=== PATIENT | male | born 1985 | race Two or more races ===

== ENCOUNTER 2021-11-15 09:43 | Emergency (ER) | payer SELFPAY ==
[~2021-11-15] VITALS: Ht 177.8 cm; Wt 117.9 kg
[2021-11-15 09:51] VITALS: BP 144/87
[2021-11-15] MEDS ORDERED: KETOROLAC TROMETH 60MG/2ML VIAL IM ONE (10:15)
[2021-11-15] MEDS ORDERED: BACL10TA PO (10:18)
[2021-11-15] MEDS ORDERED: ACET-1080 PO (10:18)
== END 2021-11-15 10:30 | disposition home or self-care (01) ==
LOC: ER 09:43
DX: S29.012A Strain of muscle and tendon of back wall of thorax, initial encounter (principal); F17.290 Nicotine dependence, other tobacco product, uncomplicated; Z88.6 Allergy status to analgesic agent; Z91.040 Latex allergy status; X50.1XXA Overexertion from prolonged static or awkward postures, initial encounter; Y93.89 Activity, other specified; Y92.89 Other specified places as the place of occurrence of the external cause; Y99.8 Other external cause status
CPT/HCPCS: 96372; 99283; J1885

== ENCOUNTER 2022-06-10 07:30 | Emergency (ER) | payer MEDICAID, OTHER ==
[~2022-06-10] VITALS: Ht 177.8 cm; Wt 125.3 kg
[~2022-06-10 07:30] MED LIST: ACET-1080 PO; BACL10TA PO
[2022-06-10 07:55] VITALS: BP 167/94
[2022-06-10 08:10] LABS: Basophils # (auto) 0 10 ^3/uL (0-0.2); Basophils % (auto) 0.3 % (0.0-2.0); Eosinophils # (auto) 0.1 10 ^3/uL (0-0.8); Hemoglobin 15.4 g/dL (13.5-17.5); Lymphocytes % (auto) 23.4 % (10.0-50.0); Mean Corpuscular Hemoglobin 30.6 pg (28.0-32.0); Mean Corpuscular Volume 87.6 fL (80.0-100.0); Monocytes # (auto) 0.6 10 ^3/uL (0-1.3); Neutrophils # (auto) 5.7 10 ^3/uL (1.6-8.6); Neutrophils % (auto) 68.3 % (37.0-80.0); Red Blood Cells 5.02 10^6/uL (4.5-5.90); White Blood Cell 8.4 10^3/uL (4.4-10.8)
[2022-06-10 08:23] LABS: Albumin 3.9 g/dL (3.4-5.0); Calcium 8.7 mg/dL (8.5-10.1); Potassium 4.1 mmol/L (3.5-5.1)
[2022-06-10 08:26] LABS: BUN/Creatinine Ratio 9.3; Bilirubin, Total 0.4 mg/dL (0.2-1.0); Total Protein 7.2 g/dL (6.4-8.2)
[2022-06-10] MEDS ORDERED: AZIT1POW PO (08:59)
[2022-06-10] MEDS ORDERED: METH4PAK PO (08:59)
== END 2022-06-10 09:10 | disposition home or self-care (01) ==
LOC: ER 07:30
DX: J20.9 Acute bronchitis, unspecified (principal); R94.31 Abnormal electrocardiogram [ECG] [EKG]; F12.10 Cannabis abuse, uncomplicated; Z20.822 Contact with and (suspected) exposure to COVID-19; Z88.6 Allergy status to analgesic agent
CPT/HCPCS: 36415; 71046; 80053; 84484; 85025; 87426; 93005

== ENCOUNTER 2022-12-19 07:47 | Emergency (ER) | payer MEDICAID ==
[~2022-12-19] VITALS: Ht 177.8 cm; Wt 120.0 kg
[~2022-12-19 07:47] MED LIST changes: +AZIT1POW PO; +METH4PAK PO
[2022-12-19 09:12] VITALS: BP 135/97
[2022-12-19] MEDS ORDERED: KETOROLAC TROMETH 60MG/2ML VIAL IM ONE (09:15)
[2022-12-19] MEDS ORDERED: METH750T22 PO (09:37)
[2022-12-19] MEDS ORDERED: ACET-1080 PO (09:37)
== END 2022-12-19 09:42 | disposition home or self-care (01) ==
LOC: ER 07:47
DX: S39.012A Strain of muscle, fascia and tendon of lower back, initial encounter (principal); Z79.2 Long term (current) use of antibiotics; Z79.899 Other long term (current) drug therapy; Z88.8 Allergy status to other drugs, medicaments and biological substances; Z91.040 Latex allergy status; W10.9XXA Fall (on) (from) unspecified stairs and steps, initial encounter; Y93.89 Activity, other specified; Y92.89 Other specified places as the place of occurrence of the external cause; Y99.8 Other external cause status
CPT/HCPCS: 72100; 96372; 99283; J1885

== ENCOUNTER 2023-12-07 09:29 | Inpatient (IN) | payer MEDICAID ==
[~2023-12-07] VITALS: Ht 177.8 cm; Wt 122.1 kg
[~2023-12-07 09:29] MED LIST changes: +METH-1182 PO
[2023-12-07 10:48] VITALS: PULSE 64; RESP 20; O2SAT 99
[2023-12-07 10:53] LABS: Basophils # (auto) 0.1 10 ^3/uL (0-0.2); Basophils % (auto) 0.6 % (0.0-2.0); Eosinophils # (auto) 0 10 ^3/uL (0-0.8); Hematocrit 46.6 % (41.0-53.0); Hemoglobin 15.6 g/dL (13.5-17.5); Lymphocytes # (auto) 2.4 10 ^3/uL (0.4-5.4); Lymphocytes % (auto) 17.7 % (10.0-50.0); Mean Corpuscular Hemoglobin 29.5 pg (28.0-32.0); Mean Corpuscular Hgb Conc. 33.5 g/dL (32.0-36.0); Monocytes # (auto) 0.5 10 ^3/uL (0-1.3); Monocytes % (auto) 3.3 % (0.0-12.0); Neutrophils # (auto) 10.8 10 ^3/uL (1.6-8.6); Neutrophils % (auto) 78.4 % (37.0-80.0); Red Blood Cells 5.29 10^6/uL (4.5-5.90); Red Cell Distribution Width 13.7 % (11.8-14.3); White Blood Cell 13.7 10^3/uL (4.4-10.8)
[2023-12-07] MEDS: ONDANSETRON HCL 4 MG/2 ML VIAL IV ONE ×2 (11:05→21:18)
[2023-12-07] MEDS: MORPHINE SULFATE 4 MG/ML SYR/VIAL IV ONE (11:06)
[2023-12-07] MEDS: SODIUM CHLORIDE 0.9% 1,000 ML IV ONE ×2 (11:06→20:07)
[2023-12-07 11:13] LABS: Alanine Aminotransferase 41 U/L (7-40); Albumin 4.9 g/dL (3.2-4.8); Alkaline Phosphatase 66 U/L (46-116); Anion Gap 12 (5-15); Aspartate Aminotransferase 29 U/L (13-40); Blood Urea Nitrogen 10 mg/dL (9-23); Calcium 9.8 mg/dL (8.5-10.1); Carbon Dioxide 20 mmol/L (20-30); Chloride 108 mmol/L (98-107); Glucose 124 mg/dL (74-106); Potassium 3.4 mmol/L (3.5-5.1); Sodium 140 mmol/L (136-145)
[2023-12-07 11:14] LABS: Bilirubin, Total 0.5 mg/dL (0.2-1.0); Total Protein 7.8 g/dL (5.7-8.2)
[2023-12-07 11:29] LABS: Lactic Acid w/Reflex 2.7 mmol/L (0.4-2.0)
[2023-12-07] MEDS ORDERED: PROMETHAZINE HCL 12.5 MG RECT SUPP PR ONE (11:30)
[2023-12-07 11:49] LABS: Lipase 39 U/L (12-53)
[2023-12-07] MEDS: cefTRIAXone 1GM/50ML D5W 50 ML IV ONE (13:26)
[2023-12-07] MEDS: PROMETHAZINE HCL 6.25 MG/5 ML ORAL SYRUP PO ONE (14:04)
[2023-12-07] MEDS: metroNIDAZOLE 500MG/100ML 100 ML IV ONE (14:06)
[2023-12-07 14:18] LABS: Triglycerides 126 mg/dL (< 150)
[2023-12-07 14:19] LABS: LDL Cholesterol 152 mg/dL (< 100)
[2023-12-07 14:20] LABS: Cholesterol 218 mg/dL (< 200); HDL Cholesterol 50 mg/dL (40-59)
[2023-12-07 14:21] LABS: Urine Bacteria None Seen /hpf (None Seen)
[2023-12-07 14:31] LABS: Amphetamine Screen, Urine Neg (NEGATIVE); Benzodiazephine Screen, Urine Neg (NEGATIVE)
[2023-12-07 14:32] LABS: Barbiturate Scree,Urine Neg (NEGATIVE); Cannabinoid Screen, Urine Pos (NEGATIVE); Cocaine Screen, Urine Neg (NEGATIVE); Opiate Scree,Urine Neg (NEGATIVE); Phencyclidine Screen, Urine Neg (NEGATIVE)
[2023-12-07] MEDS: metroNIDAZOLE 500MG/100ML 100 ML IV SCH (14:35)
[2023-12-07 14:39] LABS: Urine Blood Negative /uL (Negative); Urine Clarity Clear (Clear); Urine Color Colorless (Yellow); Urine Protein, UAD Negative (Negative); Urine Specific Gravity 1.015 (1.001-1.035); Urine Urobilinogen Normal (Negative); Urine WBC 1 /hpf (0 - 3); Urine pH 7.5 (5.0-9.0)
[2023-12-07] MEDS: PANTOPRAZOLE 40 MG/10 ML VIAL INJ IV ONE (14:40)
[2023-12-07] MEDS: KETOROLAC TROMETH 30 MG/ML 1ML VIAL IV ONE (14:40)
[2023-12-07] MEDS: ONDANSETRON HCL 4 MG/2 ML VIAL IV PRN (15:51)
[2023-12-07] MEDS: SODIUM CHLORIDE 0.9% 1,000 ML IV SCH (15:52)
[2023-12-07] MEDS: KETOROLAC TROMETH 30 MG/ML 1ML VIAL IV PRN (17:55)
[2023-12-07 19:22] LABS: Lactic Acid w/Reflex 2.7 mmol/L (0.4-2.0)
[2023-12-07 19:40] VITALS: PULSE 66; RESP 20; O2SAT 100
[2023-12-07] MEDS: POTASSIUM EFFERVESENT TAB 25 MEQ PO ONE (20:18)
[2023-12-07] MEDS: HYDROcodone-ACET 5/325MG TAB PO PRN (20:19)
[2023-12-07] MEDS: hydrALAZINE HCL 20 MG/ML VL IV PRN (20:54)
[2023-12-08] MEDS: SODIUM CHLORIDE 0.9% 1,000 ML IV ONE (00:24)
[2023-12-08 01:36] LABS: Lactic Acid w/Reflex 2.4 mmol/L (0.4-2.0)
[2023-12-08] MEDS: SODIUM CHLORIDE 0.9% 500 ML IV ONE (03:20)
[2023-12-08 07:27] LABS: Basophils # (auto) 0 10 ^3/uL (0-0.2); Basophils % (auto) 0.2 % (0.0-2.0); Eosinophils # (auto) 0 10 ^3/uL (0-0.8); Hematocrit 47.3 % (41.0-53.0); Lymphocytes % (auto) 14.4 % (10.0-50.0); Mean Corpuscular Hemoglobin 29.4 pg (28.0-32.0); Mean Corpuscular Hgb Conc. 33.9 g/dL (32.0-36.0); Mean Corpuscular Volume 86.7 fL (80.0-100.0); Monocytes # (auto) 1.4 10 ^3/uL (0-1.3); Monocytes % (auto) 6.5 % (0.0-12.0); Neutrophils # (auto) 16.4 10 ^3/uL (1.6-8.6); Neutrophils % (auto) 78.9 % (37.0-80.0); Nucleated Red Blood Cells % 0.2 %; Red Blood Cells 5.45 10^6/uL (4.5-5.90); Red Cell Distribution Width 13.7 % (11.8-14.3); White Blood Cell 20.8 10^3/uL (4.4-10.8)
[2023-12-08 07:36] LABS: Alanine Aminotransferase 34 U/L (7-40); Albumin 4.9 g/dL (3.2-4.8); Alkaline Phosphatase 61 U/L (46-116); Anion Gap 10 (5-15); Aspartate Aminotransferase 33 U/L (13-40); BUN/Creatinine Ratio 6.1 (10.0-20.0); Bilirubin, Total 0.6 mg/dL (0.2-1.0); Blood Urea Nitrogen 6 mg/dL (9-23); Calcium 9.3 mg/dL (8.5-10.1); Carbon Dioxide 23 mmol/L (20-30); Chloride 105 mmol/L (98-107); Glucose 109 mg/dL (74-106); Sodium 138 mmol/L (136-145)
[2023-12-08 07:37] LABS: Total Protein 7.8 g/dL (5.7-8.2)
[2023-12-08] MEDS: POTASSIUM EFFERVESENT TAB 25 MEQ PO ONE (08:30)
[2023-12-08] MEDS ORDERED: METHOCARBAMOL 500 MG TAB PO PRN (09:00)
[2023-12-08] MEDS ORDERED: BACLOFEN 10 MG TAB PO PRN (09:00)
[2023-12-08] MEDS: cefTRIAXone 1GM/50ML D5W 50 ML IV SCH (09:44)
[2023-12-08 10:10] VITALS: BP 154/99; PULSE 84; RESP 18; TEMP 98.4; O2SAT 98
[2023-12-08 10:16] LABS: INR 1.07 (0.9-1.15); Partial Thromboplastin Time 29.7 SEC (24.5-34.5); Prothrombin Time 11.2 sec (9.3-11.8)
[2023-12-08 10:20] LABS: Lactic Acid w/Reflex 2.1 mmol/L (0.4-2.0)
[2023-12-08] MEDS ORDERED: CHOL50007 PO (10:27)
[2023-12-08] MEDS ORDERED: CHLO25TA2 PO (10:27)
[2023-12-08] MEDS ORDERED: TRAM50TA2 PO (10:27)
[2023-12-08] MEDS ORDERED: LISI20TA56 PO (10:27)
[2023-12-08 10:32] VITALS: BP 154/99; PULSE 84; RESP 18; TEMP 98.4; O2SAT 98
[2023-12-08] MEDS ORDERED: LIDOCAINE 5% TOPICAL PATCH TOP PRN (11:15)
[2023-12-08] MEDS: PANTOPRAZOLE 40 MG/10 ML VIAL INJ IV SCH (11:55)
[2023-12-08] MEDS: POTASSIUM CHLORIDE 40 MEQ, LIDOCAINE 1% (LOCAL ANESTH.) 4 ML in SODIUM CHL 0.9% 250 ML IV ONE (11:57)
[2023-12-08] MEDS: ENOXAPARIN SOD 40 MG/0.4 ML SYRINGE SC SCH (12:03)
[2023-12-08 15:41] VITALS: BP 135/87; PULSE 75; RESP 18; TEMP 98.1; O2SAT 97
[2023-12-08] MEDS: LISINOPRIL 5 MG TAB PO ONE (16:52)
[2023-12-08] MEDS: ACETAMINOPHEN 325 MG TAB PO PRN (17:44)
[2023-12-08 20:00] VITALS: PULSE 64; RESP 16; O2SAT 96
[2023-12-08 20:56] VITALS: BP 147/88; PULSE 64; RESP 16; TEMP 98.4; O2SAT 96
[2023-12-08] MEDS: ATORVASTATIN 20 MG TAB PO SCH (21:09)
[2023-12-09 01:00] VITALS: BP 131/76; PULSE 66; RESP 16; TEMP 98.3; O2SAT 99
[2023-12-09 05:00] VITALS: BP 132/85; PULSE 68; RESP 16; TEMP 98.6; O2SAT 99
[2023-12-09 07:34] LABS: Basophils # (auto) 0 10 ^3/uL (0-0.2); Basophils % (auto) 0.2 % (0.0-2.0); Eosinophils # (auto) 0 10 ^3/uL (0-0.8); Eosinophils % (auto) 0.1 % (0.0-7.0); Hematocrit 42.8 % (41.0-53.0); Hemoglobin 14.8 g/dL (13.5-17.5); Lymphocytes # (auto) 3.4 10 ^3/uL (0.4-5.4); Lymphocytes % (auto) 31.3 % (10.0-50.0); Mean Corpuscular Hemoglobin 30.2 pg (28.0-32.0); Mean Corpuscular Hgb Conc. 34.6 g/dL (32.0-36.0); Mean Corpuscular Volume 87.3 fL (80.0-100.0); Monocytes # (auto) 0.7 10 ^3/uL (0-1.3); Monocytes % (auto) 6.7 % (0.0-12.0); Neutrophils # (auto) 6.7 10 ^3/uL (1.6-8.6); Neutrophils % (auto) 61.7 % (37.0-80.0); Nucleated Red Blood Cells % 0.1 %; Red Cell Distribution Width 13.4 % (11.8-14.3); White Blood Cell 10.8 10^3/uL (4.4-10.8)
[2023-12-09 07:48] LABS: Alanine Aminotransferase 35 U/L (7-40); Alkaline Phosphatase 48 U/L (46-116); Anion Gap 8 (5-15); Aspartate Aminotransferase 36 U/L (13-40); BUN/Creatinine Ratio 8.9 (10.0-20.0); Blood Urea Nitrogen 9 mg/dL (9-23); Calcium 8.5 mg/dL (8.5-10.1); Carbon Dioxide 24 mmol/L (20-30); Chloride 109 mmol/L (98-107); Glucose 86 mg/dL (74-106); Potassium 3.3 mmol/L (3.5-5.1); Sodium 141 mmol/L (136-145)
[2023-12-09 07:49] LABS: Bilirubin, Total 0.6 mg/dL (0.2-1.0); Phosphorus 2.3 mg/dL (2.4-5.1); Total Protein 6.3 g/dL (5.7-8.2)
[2023-12-09] MEDS: LISINOPRIL 5 MG TAB PO SCH (08:52)
[2023-12-09] MEDS: ERGOCALCIFEROL 50,000 UNIT(1.25MG) CAP PO SCH (08:52)
[2023-12-09] MEDS ORDERED: ACET-1882 PO (08:56)
[2023-12-09] MEDS ORDERED: MET500T PO (08:56)
[2023-12-09] MEDS ORDERED: ATOR20TA50 PO (08:56)
[2023-12-09] MEDS ORDERED: PANT40T PO (08:56)
[2023-12-09] MEDS ORDERED: LEVO500T91 PO (08:56)
[2023-12-09 09:00] VITALS: BP 125/71; PULSE 66; RESP 20; TEMP 97.7; O2SAT 97
[2023-12-09] MEDS ORDERED: POTA-36 PO (09:20)
[2023-12-09] MEDS: POTASSIUM EFFERVESENT TAB 25 MEQ PO ONE (10:07)
[2023-12-09] MEDS: POTASSIUM CHLORIDE 20 MEQ, LIDOCAINE 1% (LOCAL ANESTH.) 2 ML in SODIUM CHL 0.9% 100 ML IV ONE (10:07)
[2023-12-09 11:07] VITALS: BP 125/71; PULSE 66; TEMP 97.7
[2023-12-09 13:00] VITALS: BP 131/77; PULSE 72; RESP 18; TEMP 98.3; O2SAT 95
== END 2023-12-09 14:55 | disposition home or self-care (01) | DRG 720 ==
LOC: ER 09:29 → OVERFLOW 13:55 → EAST 12-08 10:00 → WEST WING 12-08 17:49
PROVIDERS: ADMIT Internal Medicine; ATTEND Emergency Medicine
DX: A41.9 Sepsis, unspecified organism (principal); K76.0 Fatty (change of) liver, not elsewhere classified; E66.01 Morbid (severe) obesity due to excess calories; I10 Essential (primary) hypertension; E87.6 Hypokalemia; E78.5 Hyperlipidemia, unspecified; F10.10 Alcohol abuse, uncomplicated; K57.32 Diverticulitis of large intestine without perforation or abscess without bleeding; K52.9 Noninfective gastroenteritis and colitis, unspecified; F12.10 Cannabis abuse, uncomplicated; Y90.9 Presence of alcohol in blood, level not specified; Z88.6 Allergy status to analgesic agent; Z91.040 Latex allergy status; Z79.899 Other long term (current) drug therapy; Z79.1 Long term (current) use of non-steroidal anti-inflammatories (NSAID); Z87.891 Personal history of nicotine dependence; Z68.38 Body mass index [BMI] 38.0-38.9, adult
CPT/HCPCS: 36415; 74176; 80053; 80061; 80307; 80320; 81001; 82140; 82306; 82607; 82962; 83036; 83605; 83690; 83735; 84100; 84443; 85025; 85610; 85730; 87040; 93005; 96361; 96365; 96375; C9113; G0378; J1885; J2001; J2405; J3490

== ENCOUNTER 2024-06-30 07:46 | Inpatient (IN) | payer MEDICAID ==
[~2024-06-30] VITALS: Ht 177.8 cm; Wt 124.5 kg
[~2024-06-30 07:46] MED LIST changes: -ACET-1080 PO; +ACET-1882 PO; +ATOR20TA50 PO; -AZIT1POW PO; -BACL10TA PO; +CHLO25TA2 PO; +CHOL50007 PO; +LEVO500T91 PO; +LISI20TA56 PO; +MET500T PO; -METH-1182 PO; -METH4PAK PO; +PANT40T PO; +POTA-36 PO
--- NOTE | 2024-06-30 08:27 | ED.PDOC ---
GI ASSESSMENT HPI Comments 38 y.o male with PMH of gastritis and diverticulitis, presents to the ED for a chief complaint of epigastric burning pain associated with nausea, vomiting, and diarrhea that started last night at 2200. Patient reports pain is constant, non radiating and described as a burning sensation. Patient denies fever, chills, bloody stool, or urinary symptoms. Patient reports symptoms presented s/p eating dinner last night, has not been able to keep any fluids down and is now experiencing dry mouth. Patient has no diarrhea or vomiting at this time, states he is dry heaving and pain is still present as a 10/10 on the pain scale and is non radiating. Patient admits to marijuana, alcohol and nicotine use occasi onally. Patient's last diverticulitis flare up was in December 2023, states same pain and symptoms today. Chief Complaint: Abdominal Pain Time Seen by MD: 08:20 Primary Care Provider: Unknown Reviewed Notes: Nurses Notes, Medications, Allergies Allergies: Coded Allergies: Ibuprofen (Verified Allergy, Unknown, 11/15/21) Latex (Verified Allergy, Unknown, 11/15/21) Home Meds Active Scripts Potassium Chloride (POTASSIUM CHLORIDE CR) 10 Meq Tb, 10 MEQ PO DAILY for 10 Days, #10 TAB Prov:DANNA TORRES [facility] 12/09/23 Levofloxacin Hemihydrate (LEVOFLOXACIN) 500 Mg Tab, 1 TAB PO DAILY for 10 Days, #10 TAB Prov:DANNA TORRES [facility] 12/09/23 Metronidazole (Metronidazole) 500 Mg Tab, 500 MG PO TID for 10 Days, #30 TAB Prov:DANNA TORRES [facility] 12/09/23 Pantoprazole Sodium Sesquihydr (Pantoprazole Sodium) 40 Mg Tab, 40 MG PO DAILY for 30 Days, #30 TAB Prov:DANNA TORRES [facility] 12/09/23 Atorvastatin Calcium (ATORVASTATIN CALCIUM) 20 Mg Tab, 20 MG PO HS for 30 Days, #30 TAB Prov:DANNA TORRES [facility] 12/09/23 Acetaminophen (Acetaminophen) 325 Mg Tab, 650 MG PO Q6HP PRN for 30 Days, #240 TAB Prov:DANNA TORRES [facility] 12/09/23 Reported Medications Cholecalciferol (VITAMIN D3) 5,000 Unit Cap, 1 CAP PO DAILY 12/08/23 Lisinopril (Lisinopril) 20 Mg Tab, 1 TAB PO DAILY 12/08/23 Chlorthalidone (Chlorthalidone) 25 Mg Tab, 1 TAB PO DAILY 12/08/23 Information Source: Patient Mode of Arrival: Wheelchair Timing: Hours Duration: Since onset Quality: Burning Vomitus: None Stool: Normal Severity: Moderate Recent: None Recent Hx of: None Pain Location: Epigastric Modifying Factors: Nothing Associated sign and symptoms: Abdominal Pain Past Medical History Past Medical History (Other): Gastritis and diverticulitis Surgical History: Denies all surgeries Family History Family History: No family hx of DM, No family hx of Heart marcelo, No family hx of HTN Social History Smoker: Quit Less Than 1 Year, Other Alcohol: Occasionally Drugs: Marijuana Lives In: Home Constitutional: denies: chills, diaphoresis, fatigue, fever, malaise, sweats, weakness, others EENTM: denies: blurred vision, double vision, ear bleeding, ear discharge, ear drainage, ear pain, ear ringing, eye pain, eye redness, hearing loss, mouth pain, mouth swelling, nasal discharge, nose bleeding, nose congestion, nose pain, photophobia, tearing, throat pain, throat swelling, voice changes, others Respiratory: denies: cough, hemoptysis, orthopnea, SOB at rest, shortness of breath, SOB with excertion, stridor, wheezing, others Cardiovascular: denies: chest pain, dizzy spells, diaphoresis, Dyspnea on exertion, edema, irregular heart beat, left arm pain, lightheadedness, palpitations, PND, syncope, others Gastrointestinal: reports: abdominal pain; denies: abdomen distended, blood streaked bowels, constipated, diarrhea, dysphagia, difficulty swallowing, hematemesis, melena, nausea, poor appetite, poor fluid intake, rectal bleeding, rectal pain, vomiting, others Genitourinary: denies: burning, dysuria, flank pain, frequency, hematuria, incontinence, penile discharge, penile sore, pain, testicle pain, testicle swelling, urgency, others Neurological: denies: dizziness, fainting, headache, left sided numbness, left sided weakness, numbness, paresthesia, pre-existing deficit, right sided numbness, right sided weakness, seizure, speech problems, tingling, tremors, weakness, others Musculoskeletal: denies: back pain, gout, joint pain, joint swelling, muscle pain, muscle stiffness, neck pain, others Integumetry: denies: bruises, change in color, change in hair/nails, dryness, laceration, lesions, lumps, rash, wounds, others Allergic/Immunocompromised: denies: Difficulty Healing, Frequent Infections, Hives, Itching, others Hematologic/Lymphatic: denies: anemia, blood clots, easy bleeding, easy bruising, swollen glands, others Endocrine: denies: excessive hunger, excessive sweating, excessive thirst, excessive urination, flushing, intolerance to cold, intolerance to heat, unexplained weight gain, unexplained weight loss, others Psychiatric: denies: anxiety, bipolar disorder, depression, hopeless, panic disorder, schizophrenia, sleepless, suicidal, others All Other Systems: Reviewed and Negative Physical Exam General Appearance: Moderate Distress HEENT: Normal ENT Inspection, Pharynx Normal, TMs Normal Neck: Full Range of Motion, Non-Tender, Normal, Normal Inspection Respiratory: Chest Non-Tender, Lungs Clear, No Accessory Muscle Use, No Respiratory Distress, Normal Breath Sounds Cardiovascular: No Edema, No JVD, No Murmur, No Gallop, Normal Peripheral Pulses, Regular Rate/Rhythm Breast Exam: Deferred Gastrointestinal: No Organomegaly, Non Tender, No Pulsatile Mass, Normal Bowel Sounds, Soft Genitalia: Deferred Pelvic: Deferred Rectal: Deferred Extremities: No calf tenderness, Normal capillary refill, Normal inspection, Normal range of motion, Non-tender, No pedal edema Musculoskeletal : Apperance: Normal Neurologic: Alert, technical sales director II-XII nml as Tested, No Motor Deficits, Normal Affect, Normal Mood, No Sensory Deficits Cerebellar Function: Normal Reflexes: Normal Skin: Dry, Normal Color, Warm Peripheral Pulses: 3+ Radial (R), 3+ Radial (L) Lymphatic: No Adenopathy Was a procedure done? Was a procedure done?: No GI differential Dx Differential Diagnosis: Esophagitis, Gastritis/PUD, Gastroenteritis, Inflammatory BD X-Ray, Labs, Meds, VS Vital Signs Date Time Temp Pulse Resp B/P (MAP) Pulse Ox O2 Delivery O2 Flow Rate FiO2 06/30/24 09:51 88 18 145/88 06/30/24 08:54 94 20 147/107 06/30/24 08:52 98.1 94 20 146/107 (120) 98 98.1 06/30/24 08:51 80 20 98 Room Air* 0 21 06/30/24 07:54 98.0 95 18 164/77 (106) 100 Lab Test 06/30/24 11:00 06/30/24 10:30 06/30/24 08:58 Range/Units Lactic Acid Level 3.1 *H 4.0 *H 0.4-2.0 mmol/L Urine Color Light-yellow Yellow Urine Clarity Clear Clear Urine pH 8.0 5.0-9.0 Urine Specific [place] 1.021 1.001-1.035 Urine Protein Trace H Negative Urine Ketones Negative Negative Urine Blood Negative Negative /uL Urine Nitrite Negative Negative Urine Bilirubin Negative Negative Urine Urobilinogen Normal Negative mg/dL Urine Leukocyte Esterase Negative Negative /uL Urine RBC <1 0 - 3 /hpf Urine WBC <1 0 - 3 /hpf Urine Squamous Epithelial Cells None seen <5 /hpf Urine Bacteria None seen None Seen /hpf Urine Glucose Normal Normal mg/dL White Blood Count 14.5 H 4.4-10.8 10^3/uL Red Blood Count 5.32 4.5-5.90 10^6/uL Hemoglobin 16.1 13.5-17.5 g/dL Hematocrit 46.6 41.0-53.0 % Mean Corpuscular Volume 87.7 80.0-100.0 fL Mean Corpuscular Hemoglobin 30.3 28.0-32.0 pg Mean Corpuscular Hemoglobin Concent 34.6 32.0-36.0 g/dL Red Cell Distribution Width 13.3 11.8-14.3 % Platelet Count 246 140-450 10^3/uL Mean Platelet Volume 9.0 6.9-10.8 fL Neutrophils (%) (Auto) 87.7 H 37.0-80.0 % Lymphocytes (%) (Auto) 10.1 10.0-50.0 % Monocytes (%) (Auto) 2.1 0.0-12.0 % Eosinophils (%) (Auto) 0.0 0.0-7.0 % Basophils (%) (Auto) 0.1 0.0-2.0 % Neutrophils # (Auto) 12.7 H 1.6-8.6 10 ^3/uL Lymphocytes # (Auto) 1.5 0.4-5.4 10 ^3/uL Monocytes # (Auto) 0.3 0-1.3 10 ^3/uL Eosinophils # (Auto) 0 0-0.8 10 ^3/uL Basophils # (Auto) 0 0-0.2 10 ^3/uL Nucleated Red Blood Cells 0.1 % Sodium Level 137 136-145 mmol/L Potassium Level 3.7 3.5-5.1 mmol/L Chloride Level 103 98-107 mmol/L Carbon Dioxide Level 19 L 20-31 mmol/L Anion Gap 15 5-15 Blood Urea Nitrogen 11 9-23 mg/dL Creatinine 1.07 0.700-1.30 mg/dL Glomerular Filtration Rate Calc 90 >90 mL/min BUN/Creatinine Ratio 10.3 10.0-20.0 Serum Glucose 145 H 74-106 mg/dL Calcium Level 10.4 8.7-10.4 mg/dL Lipase 40 12-53 U/L Current Medications Medications (Trade) Dose Ordered Sig/Darshana Route Start Time Stop Time Status Last Admin Morphine Sulfate 4 mg ONCE ONCE IV 06/30/24 08:30 06/30/24 08:31 DC 06/30/24 08:54 Ondansetron HCl (Zofran) 4 mg ONCE ONCE IV 06/30/24 08:30 06/30/24 08:31 DC 06/30/24 08:54 Patient alert. Complaining of abdominal pain. Vitals stable. Answering all questions. History of diverticulitis. Was given morphine. Was given Zofran. Blood sugar elevated. Lipase within normal limits. Establish intravenous access. Was given fluids. CT scan of the abdomen shows diverticulosis. Reviewed his history. Explained to the patient. Continue cardiac monitoring. Time of 1ST Reevaluation: 08:45 Reevaluation 1ST: Unchanged Patient Education/Counseling: Diagnosis, Treatment, Prognosis Family Education/Counseling: No Family Present Departure 1 Departure Time of Disposition: 17:32 Impression: Primary Impression: Acute abdominal pain Additional Impression: Non-specific colitis Disposition: ADMITTED INPATIENT Admit to: Med Surg Condition: Guarded Critical Care Note Critical Care Time?: No Stability Stability form required: No I personally scribed for HIREN DAVIES MD ([email or web address]) on 06/30/24 at 08:26. Electronically submitted by Lakia Boyle ([facility]). HIREN DAVIES MD Jun 30, 2024 08:26
[2024-06-30 08:51] VITALS: PULSE 80; RESP 20; O2SAT 98
[2024-06-30] MEDS: MORPHINE SULFATE 4 MG/ML SYR/VIAL IV ONE (08:54)
[2024-06-30] MEDS: ONDANSETRON HCL 4 MG/2 ML VIAL IV ONE (08:54)
--- NOTE | 2024-06-30 09:04 | DVH ---
Exam: CT CT AB PEL WO CON-NO ORAL OR IV History: diverticulitis Comparison Study: CT CT AB PEL WO CON-NO ORAL OR IV on DOS: 12/07/23 Technique: Multidetector spiral CT of the abdomen and pelvis was performed from lung bases to pubic symphysis. Imaging was performed without IV contrast. Axial, coronal and sagittal multiplanar reform ats were obtained from the axial data set by the technologist. Radiation dose : Abdomen/Pelvis: CTDIvol 27 mGy, DLP 1832.22 mGy*cm. Findings: Limited by motion. Evaluation of solid organs is limited due to lack of intravenous contrast use. Lung Bases: No acute or significant lung base finding. Normal heart size. No pleural or pericardial effusion. Liver: The liver is normal in size. No focal lesions. Gallbladder and biliary Tree: Unremarkable Spleen: Unremarkable Pancreas: The pancreas is grossly normal in appearance. Adrenal Glands: Unremarkable Kidneys: Kidneys are grossly normal without calculi or hydronephrosis. Bladder: Grossly unremarkable for degree of distention. Bowel: The stomach is grossly normal in appearance. Small bowel and colon are normal in caliber and d istribution. Normal appendix is visualized in the right lower quadrant without findings of appendici tis. Sigmoid diverticulosis noted. No evidence of acute diverticulitis. Ascites: Absent Lymphadenopathy: No mesenteric, retroperitoneal or periportal lymphadenopathy. Abdominal wall and Mesentery: Unremarkable. Vasculature: The visualized abdominal aorta is normal in size and caliber. Evaluation of abdominal a nd pelvic vessels is limited due to lack of intravenous contrast. Pelvic Organs: Unremarkable Musculoskeletal: No aggressive focal bony lesions, acute fractures or dislocation. IMPRESSION: 1. Limited by motion artifact. Diverticulosis without evidence of acute diverticulitis. No acute find ing identified. Radiation optimization: All CT scans at this facility use at least one of these dose optimization jeffrey hniques: Automated exposure control mA and/or kV adjustment per patient size (includes targeted exams where dose is matched to clinical indication) or iterative reconstruction. HS:Y
[2024-06-30 09:26] LABS: Basophils # (auto) 0 10 ^3/uL (0-0.2); Basophils % (auto) 0.1 % (0.0-2.0); Eosinophils # (auto) 0 10 ^3/uL (0-0.8); Hematocrit 46.6 % (41.0-53.0); Hemoglobin 16.1 g/dL (13.5-17.5); Lymphocytes # (auto) 1.5 10 ^3/uL (0.4-5.4); Lymphocytes % (auto) 10.1 % (10.0-50.0); Mean Corpuscular Hemoglobin 30.3 pg (28.0-32.0); Mean Corpuscular Hgb Conc. 34.6 g/dL (32.0-36.0); Mean Corpuscular Volume 87.7 fL (80.0-100.0); Monocytes # (auto) 0.3 10 ^3/uL (0-1.3); Monocytes % (auto) 2.1 % (0.0-12.0); Neutrophils # (auto) 12.7 10 ^3/uL (1.6-8.6); Neutrophils % (auto) 87.7 % (37.0-80.0); Nucleated Red Blood Cells % 0.1 %; Platelet Count (auto) 246 10^3/uL (140-450); Red Blood Cells 5.32 10^6/uL (4.5-5.90); Red Cell Distribution Width 13.3 % (11.8-14.3); White Blood Cell 14.5 10^3/uL (4.4-10.8)
[2024-06-30 09:30] LABS: Chloride 103 mmol/L (98-107); Potassium 3.7 mmol/L (3.5-5.1); Sodium 137 mmol/L (136-145)
[2024-06-30 09:31] LABS: Anion Gap 15 (5-15); Carbon Dioxide 19 mmol/L (20-31)
[2024-06-30 09:32] LABS: Calcium 10.4 mg/dL (8.7-10.4)
[2024-06-30 09:36] LABS: Glucose 145 mg/dL (74-106)
[2024-06-30 09:37] LABS: BUN/Creatinine Ratio 10.3 (10.0-20.0); Blood Urea Nitrogen 11 mg/dL (9-23)
[2024-06-30 10:46] LABS: Lipase 40 U/L (12-53)
[2024-06-30 11:37] LABS: Urine Bacteria None Seen /hpf (None Seen)
[2024-06-30 12:18] LABS: Urine Blood Negative /uL (Negative); Urine Clarity Clear (Clear); Urine Color Light-Yellow (Yellow); Urine Protein, UAD TRACE (Negative); Urine Specific Gravity 1.021 (1.001-1.035); Urine Urobilinogen Normal (Negative); Urine WBC <1 /hpf (0 - 3)
[2024-06-30] MEDS: SODIUM CHLORIDE 0.9% 1,000 ML IV ONE (14:15)
[2024-06-30] MEDS: PANTOPRAZOLE 40 MG/10 ML VIAL INJ IV SCH (14:15)
--- NOTE | 2024-06-30 14:39 | DVHHP2 ---
History of Present Illness Reason for Visit: Nausea and vomiting History of Present Illness 38-year-old male presented to the ED with chief complaint of epigastric burning pain, nausea and vomiting, diarrhea that started last night at 10:00 p.m.. Patient reports pain as constant, nonradiating and burning. Patient denies fever chills bloody stool or urinary symptoms. Symptoms began after eating dinner last night. CT abdomen/pelvis does not show any diverticulitis, does show diverticulosis. Patient's WBCs 14.5, lactic acid 4.0 on the 1st then 3.1. Patient is still complains of abdominal pain and is vomiting. We will place GI consult, give Protonix, and admit to medical/surgical. Patient denies chest pain, headache, dizziness, diaphoresis, shortness of breath, fever, or chills endorsed by the patient. Patient was admitted for further evaluation medical management. Past Medical History Gastritis, diverticulitis, hypertension, hyperlipidemia Past Surgical History Denies Family History Reviewed noncontributory to the management of this case Smoke: No Drugs: Marijuana Past Social History History of heavy alcohol use, per patient's occasionally drinks Review of Systems Constitutional: No: Fever, Chills, Sweats, Weakness, Malaise, Other Eyes: No: Pain, Vision change, Conjunctivae inflammation, Eyelid inflammation, Other, Redness ENT: No: Ear pain, Ear discharge, Nose pain, Nose discharge, Nose congestion, Mouth pain, Mouth swelling, Throat pain, Throat swelling, Other Cardiovascular: No: Chest Pain, Palpitations, Orthopnea, Paroxysmal Noc. Dyspnea, Edema, Lt Headedness, Other Gastrointestinal: Nausea, Vomiting, Abdominal Pain; No: Diarrhea, Constipation, Melena, Hematochezia, Other Genitourinary: No Dysuria, No Frequency, No Incontinence, No Hematuria, No Retention, No Other Musculoskeletal: No: other, neck pain, shoulder pain, arm pain, back pain, hand pain, leg pain, foot pain Skin: No: Rash, Lesions, Jaundice, Bruising, Other Neurological: No: Weakness, Numbness, Incoordination, Change in speech, Confusion, Seizures, Other Allergies: Coded Allergies: Ibuprofen (Verified Allergy, Unknown, 11/15/21) Latex (Verified Allergy, Unknown, 11/15/21) Medications Current Medications Medications Dose Ordered Sig/Darshana Route Start Time Stop Time Status Last Admin Dose Admin Pantoprazole Sodium 40 mg DAILY IV 06/30/24 14:15 Ondansetron HCl 4 mg Q4HP PRN IV 06/30/24 14:15 Morphine Sulfate 2 mg Q4HPRN PRN IV 06/30/24 14:15 Piperacillin Sod/ Tazobactam Sod 100 ml @ 25 mls/hr Q6H IV 06/30/24 20:00 Exam Vital Signs Vital Signs Date Time Temp Pulse Resp B/P (MAP) Pulse Ox O2 Delivery O2 Flow Rate FiO2 06/30/24 09:51 88 18 145/88 06/30/24 08:52 98.1 98 98.1 06/30/24 08:51 Room Air* 0 21 General Appearance: Alert, Oriented X3, Cooperative, No acute distress HEENT: Atraumatic, PERRLA, EOMI, Mucous membr. moist/pink Respiratory: Clear to auscultation, Normal air movement Cardiovascular: Regular rate, Normal S1, Normal S2, No murmurs Abdominal: Normal bowel sounds, Soft, No hepatospenomegaly, No masses, Other (Epigastric tenderness) Extremities: No clubbing, No cyanosis, No edema, Normal pulses, No tenderness/swelling, Other Skin: No rashes, No breakdown, No significant lesion Neuro: Normal gait, Normal speech, Strength at 5/5 X4 ext, Normal tone, Sensation intact, Cranial nerves 3-12 NL, Reflexes 2+ Psych/Mental Status: Mental status NL, Mood NL Labs/Xrays Labs, imaging and ED notes reviewed Labs Test 06/30/24 11:00 06/30/24 10:30 06/30/24 08:58 Range/Units Lactic Acid Level 3.1 *H 0.4-2.0 mmol/L Urine Color Light-yellow Yellow Urine Clarity Clear Clear Urine pH 8.0 5.0-9.0 Urine Specific [place] 1.021 1.001-1.035 Urine Protein Trace H Negative Urine Ketones Negative Negative Urine Blood Negative Negative /uL Urine Nitrite Negative Negative Urine Bilirubin Negative Negative Urine Urobilinogen Normal Negative mg/dL Urine Leukocyte Esterase Negative Negative /uL Urine RBC <1 0 - 3 /hpf Urine WBC <1 0 - 3 /hpf Urine Squamous Epithelial Cells None seen <5 /hpf Urine Bacteria None seen None Seen /hpf Urine Glucose Normal Normal mg/dL White Blood Count 14.5 H 4.4-10.8 10^3/uL Red Blood Count 5.32 4.5-5.90 10^6/uL Hemoglobin 16.1 13.5-17.5 g/dL Hematocrit 46.6 41.0-53.0 % Mean Corpuscular Volume 87.7 80.0-100.0 fL Mean Corpuscular Hemoglobin 30.3 28.0-32.0 pg Mean Corpuscular Hemoglobin Concent 34.6 32.0-36.0 g/dL Red Cell Distribution Width 13.3 11.8-14.3 % Platelet Count 246 140-450 10^3/uL Mean Platelet Volume 9.0 6.9-10.8 fL Neutrophils (%) (Auto) 87.7 H 37.0-80.0 % Lymphocytes (%) (Auto) 10.1 10.0-50.0 % Monocytes (%) (Auto) 2.1 0.0-12.0 % Eosinophils (%) (Auto) 0.0 0.0-7.0 % Basophils (%) (Auto) 0.1 0.0-2.0 % Neutrophils # (Auto) 12.7 H 1.6-8.6 10 ^3/uL Lymphocytes # (Auto) 1.5 0.4-5.4 10 ^3/uL Monocytes # (Auto) 0.3 0-1.3 10 ^3/uL Eosinophils # (Auto) 0 0-0.8 10 ^3/uL Basophils # (Auto) 0 0-0.2 10 ^3/uL Nucleated Red Blood Cells 0.1 % Sodium Level 137 136-145 mmol/L Potassium Level 3.7 3.5-5.1 mmol/L Chloride Level 103 98-107 mmol/L Carbon Dioxide Level 19 L 20-31 mmol/L Anion Gap 15 5-15 Blood Urea Nitrogen 11 9-23 mg/dL Creatinine 1.07 0.700-1.30 mg/dL Glomerular Filtration Rate Calc 90 >90 mL/min BUN/Creatinine Ratio 10.3 10.0-20.0 Serum Glucose 145 H 74-106 mg/dL Calcium Level 10.4 8.7-10.4 mg/dL Lipase 40 12-53 U/L Assessment/Plan Assessment/Plan Abdominal pain,secondary to diverticulosis Admit to medical/surgical With leukocytosis and lactic acidosis Started on Zosyn GI consult Protonix given Zofran p.r.n. nausea Pain medication p.r.n. Blood cultures pending History of chronic hypertension On lisinopril/HCTZ resume FEN/PPX Clear liquids if tolerable GI prophylaxis Protonix VTE prophylaxis not indicated Plan discussed with: Patient My Orders Orders - LUPILLO RUBI Procedure Category Date Status Time Pantoprazole PHA 06/30/24 In Process (Protonix) 14:15 Admit ADMIT 06/30/24 Transmitted 14:01 Code Status CODE 06/30/24 Transmitted 14:01 Vital Signs [facility] 06/30/24 In Process 14:01 Review Orders With [facility] 06/30/24 In Process Adm. 14:01 Up Ad Chey [facility] 06/30/24 In Process 14:01 Notify Of Changes [facility] 06/30/24 In Process From Base 14:01 Advance Directive [facility] 06/30/24 In Process 14:01 Basic Metabolic Panel LAB 07/01/24 Verified 04:00 Complete Blood Count LAB 07/01/24 Verified 04:00 Patient Condition ORDERS 06/30/24 Transmitted 14:01 Allergies MARGE 06/30/24 In Process 14:01 Ondansetron Hcl PHA 06/30/24 In Process (Zofran) 14:15 Morphine Sulfate PHA 06/30/24 In Process Injection 14:15 Clear Liq Diet DIET 06/30/24 Transmitted Dinner Piperacillin-Tazob PHA 06/30/24 In Process 3.375gm (Zosyn 3.375g 20:00 Sodium Chloride 0.9% PHA 06/30/24 In Process 14:15 Piperacillin-Tazob PHA 06/30/24 In Process 3.375gm (Zosyn 3.375g 14:30 * Gi [facility] Passenger Relations Representative CONS 06/30/24 Verified 14:33 Date of Service: Jun 30, 2024 Billing Provider: LUPILLO RUBI Common Visit Codes: [id number] INP/OBS CARE (HIGH) LUPILLO RUBI Jun 30, 2024 14:39
[2024-06-30] MEDS: PIPERACILLIN-TAZOB 3.375GM 100 ML IV ONE (14:49)
[2024-06-30] MEDS: ONDANSETRON HCL 4 MG/2 ML VIAL IV PRN (18:11)
[2024-06-30] MEDS: MORPHINE SULFATE INJ 2 MG/ml SYRG IV PRN (18:14)
[2024-06-30] MEDS ORDERED: LISI-287 PO (18:21)
[2024-06-30] MEDS: LISINOPRIL 20 MG TAB PO SCH (18:46)
[2024-06-30] MEDS: hydroCHLOROthiazide 25 MG TAB PO SCH (18:46)
[2024-06-30] MEDS: hydrALAZINE HCL 20 MG/ML VL IV PRN (18:54)
[2024-06-30] MEDS: PIPERACILLIN-TAZOB 3.375GM 100 ML IV SCH (20:03)
[2024-06-30 22:08] VITALS: BP 134/77; PULSE 116; RESP 20; TEMP 98.2; O2SAT 95
[2024-07-01] VITALS (8 sets, daily range): BP systolic 110–133; BP diastolic 68–82; PULSE 75–99; RESP 16–20; TEMP 98–98.6; O2SAT 97–98
[2024-07-01 06:24] LABS: Basophils # (auto) 0 10 ^3/uL (0-0.2); Basophils % (auto) 0.2 % (0.0-2.0); Eosinophils # (auto) 0 10 ^3/uL (0-0.8); Hematocrit 43.2 % (41.0-53.0); Hemoglobin 14.6 g/dL (13.5-17.5); Lymphocytes # (auto) 2.9 10 ^3/uL (0.4-5.4); Lymphocytes % (auto) 21.5 % (10.0-50.0); Mean Corpuscular Hemoglobin 29.8 pg (28.0-32.0); Mean Corpuscular Hgb Conc. 33.8 g/dL (32.0-36.0); Mean Corpuscular Volume 88.3 fL (80.0-100.0); Monocytes # (auto) 1.1 10 ^3/uL (0-1.3); Neutrophils # (auto) 9.5 10 ^3/uL (1.6-8.6); Neutrophils % (auto) 70.3 % (37.0-80.0); Platelet Count (auto) 221 10^3/uL (140-450); Red Blood Cells 4.89 10^6/uL (4.5-5.90); Red Cell Distribution Width 13.5 % (11.8-14.3); White Blood Cell 13.5 10^3/uL (4.4-10.8)
[2024-07-01 06:37] LABS: Anion Gap 9 (5-15); Carbon Dioxide 25 mmol/L (20-31); Chloride 104 mmol/L (98-107); Potassium 3.3 mmol/L (3.5-5.1); Sodium 138 mmol/L (136-145)
[2024-07-01 06:38] LABS: Calcium 9.6 mg/dL (8.7-10.4)
[2024-07-01 06:43] LABS: BUN/Creatinine Ratio 11.7 (10.0-20.0); Blood Urea Nitrogen 12 mg/dL (9-23); Glucose 110 mg/dL (74-106)
--- NOTE | 2024-07-01 12:14 | DVHINCON2 ---
GI Consult Consult Note GI consult note Date of Consultation: 07/01/2024 Chief Complaint: Nausea vomiting Referring Physician: Dr. Garcia H&P: 38-year-old male admitted with nausea and vomiting, and diarrhea, for two days. Feels like his diverticulitis was flaring up again Patient feels epigastric soreness, from throwing up. No abdominal pain now No nausea or vomiting at this time. No hematemesis No melena or red blood in stool Patient has multiple hospitalization diagnosed with diverticulitis in the past, [facility] EGD/colonoscopy March 2024, polyp removal Patient admits to a high-fiber diet after the multiple diverticulitis hospitalization Patient has history of heavy alcohol and marijuana. Patient admits to cutting back on this use Past Medical History: Gastritis, diverticulitis Past Surgical History: Denies Social History: Smoker: Quit Less Than 1 Year, Other Alcohol: Occasionally Drugs: Marijuana once a week Lives In: Home Family History: Noncontributory Review of Systems: Constitutional: no fever, chill, weight loss HEENT: no eye pain, no hearing loss, no oral lesion, no scleral icterus Heart: no chest pain, no chest pressure Lung: no cough, no dyspnea with exertion Abdomen: see HPI Physical exam: General: NAD, AAOX3 Chest: lung duke clear to auscultation Heart: RRR, no murmur Abdomen: non-distended, mild epigastric tenderness to palpation, +BS Labs: Labs Test 07/01/24 05:58 06/30/24 11:00 06/30/24 10:30 06/30/24 08:58 Range/Units White Blood Count 13.5 H 4.4-10.8 10^3/uL Red Blood Count 4.89 4.5-5.90 10^6/uL Hemoglobin 14.6 13.5-17.5 g/dL Hematocrit 43.2 41.0-53.0 % Mean Corpuscular Volume 88.3 80.0-100.0 fL Mean Corpuscular Hemoglobin 29.8 28.0-32.0 pg Mean Corpuscular Hemoglobin Concent 33.8 32.0-36.0 g/dL Red Cell Distribution Width 13.5 11.8-14.3 % Platelet Count 221 140-450 10^3/uL Mean Platelet Volume 9.0 6.9-10.8 fL Neutrophils (%) (Auto) 70.3 37.0-80.0 % Lymphocytes (%) (Auto) 21.5 10.0-50.0 % Monocytes (%) (Auto) 8.0 0.0-12.0 % Eosinophils (%) (Auto) 0.0 0.0-7.0 % Basophils (%) (Auto) 0.2 0.0-2.0 % Neutrophils # (Auto) 9.5 H 1.6-8.6 10 ^3/uL Lymphocytes # (Auto) 2.9 0.4-5.4 10 ^3/uL Monocytes # (Auto) 1.1 0-1.3 10 ^3/uL Eosinophils # (Auto) 0 0-0.8 10 ^3/uL Basophils # (Auto) 0 0-0.2 10 ^3/uL Nucleated Red Blood Cells 0.0 % Sodium Level 138 136-145 mmol/L Potassium Level 3.3 L 3.5-5.1 mmol/L Chloride Level 104 98-107 mmol/L Carbon Dioxide Level 25 20-31 mmol/L Anion Gap 9 5-15 Blood Urea Nitrogen 12 9-23 mg/dL Creatinine 1.03 0.700-1.30 mg/dL Glomerular Filtration Rate Calc 94 >90 mL/min BUN/Creatinine Ratio 11.7 10.0-20.0 Serum Glucose 110 H 74-106 mg/dL Calcium Level 9.6 8.7-10.4 mg/dL Lactic Acid Level 3.1 *H 0.4-2.0 mmol/L Urine Color Light-yellow Yellow Urine Clarity Clear Clear Urine pH 8.0 5.0-9.0 Urine Specific [place] 1.021 1.001-1.035 Urine Protein Trace H Negative Urine Ketones Negative Negative Urine Blood Negative Negative /uL Urine Nitrite Negative Negative Urine Bilirubin Negative Negative Urine Urobilinogen Normal Negative mg/dL Urine Leukocyte Esterase Negative Negative /uL Urine RBC <1 0 - 3 /hpf Urine WBC <1 0 - 3 /hpf Urine Squamous Epithelial Cells None seen <5 /hpf Urine Bacteria None seen None Seen /hpf Urine Glucose Normal Normal mg/dL Lipase 40 12-53 U/L Microbiology Date/Time Source Procedure Growth Status 06/30/24 08:58 Blood Blood Culture - Preliminary NO GROWTH AFTER 24 HOURS OF INCUBATION. Resulted Imaging: CT abdomen pelvis IMPRESSION: 1. Limited by motion artifact. Diverticulosis without evidence of acute diverticulitis. No acute finding identified. Assessment: Abdominal pain improving Nausea/vomiting improving Diverticulosis without diverticulitis Plan: Discussed with Dr. Ashok Carroll and Evie Advance diet if tolerating to regular diet Outpatient GI follow-up recommended, with next available appointment Discussed plan with patient and RN Thank you for this consult Date of Service: Jul 01, 2024 Billing Provider: LASHAUN MCCLURE Common Visit Codes: CONSULT ONLY Consultation Codes: [id number] CONSULT <45MIN LASHAUN MCCLURE Jul 01, 2024 12:14
[2024-07-01] MEDS ORDERED: OMEG-86 PO (15:28)
[2024-07-01] MEDS ORDERED: AMLO1TAB23 PO (15:28)
[2024-07-01] MEDS ORDERED: GABA-1250 PO (15:28)
--- NOTE | 2024-07-01 16:09 | DVHPN2 ---
Reviewed: Care Plan, H&P, Labs, Medications, Previous Orders, Radiology Changes from previous H/P or p: No Changes General: Per HPI Eyes: No Pain, No Vision change, No Conjunctivae inflammation, No Eyelid inflammation, No Other, No Redness ENT: No Ear pain, No Ear discharge, No Nose pain, No Nose discharge, No Nose congestion, No Mouth pain, No Mouth swelling, No Throat pain, No Throat swelling, No Other Cardiovascular: No Chest Pain, No Palpitations, No Orthopnea, No Paroxysmal Noc. Dyspnea, No Edema, No Lt Headedness, No Other Gastrointestinal: Nausea, Vomiting, Abdominal Pain; No Diarrhea, No Constipation, No Melena, No Hematochezia, No Other Genitourinary: No Dysuria, No Frequency, No Incontinence, No Hematuria, No Retention, No Other Musculoskeletal: No other, No neck pain, No shoulder pain, No arm pain, No back pain, No hand pain, No leg pain, No foot pain Skin: No Rash, No Lesions, No Jaundice, No Bruising, No Other Objective Vitals Vital Signs Date Time Temp Pulse Resp B/P (MAP) Pulse Ox O2 Delivery O2 Flow Rate FiO2 07/01/24 13:36 81 18 141/91 07/01/24 12:27 98.1 97 98.1 06/30/24 08:51 Room Air* 0 21 Intake/Output Intake and Output 07/01/24 06:59 Intake Total 900 ml Balance 900 ml Intake IV Total 900 ml General Appearance: Alert, Oriented X3, Cooperative Cardiovascular: Regular rate, Normal S1 Abdomen: Normal bowel sounds Medications Current Medications Medications Dose Ordered Sig/Darshana Route Start Time Stop Time Status Last Admin Dose Admin Pantoprazole Sodium 40 mg DAILY IV 06/30/24 14:15 07/01/24 10:00 40 MG Ondansetron HCl 4 mg Q4HP PRN IV 06/30/24 14:15 06/30/24 18:11 4 MG Morphine Sulfate 2 mg Q4HPRN PRN IV 06/30/24 14:15 07/01/24 13:36 2 MG Piperacillin Sod/ Tazobactam Sod 100 ml @ 25 mls/hr Q6H IV 06/30/24 20:00 07/01/24 08:00 25 MLS/HR Hydralazine HCl 10 mg Q6HP PRN IV 06/30/24 18:30 11/14/24 18:54 10 MG Lisinopril 20 mg DAILY PO 06/30/24 18:30 07/01/24 09:36 20 MG Hydrochlorothiazide 12.5 mg DAILY PO 06/30/24 18:30 07/01/24 09:37 12.5 MG Laboratory Results Laboratory Tests 07/01/24 05:58 Chemistry Test 07/01/24 05:58 Calcium Level 9.6 mg/dL (8.7-10.4) Urinalysis Test 06/30/24 10:30 Urine Color Light-yellow (Yellow) Urine Clarity Clear (Clear) Urine pH 8.0 (5.0-9.0) Urine Specific [place] 1.021 (1.001-1.035) Urine Protein Trace (Negative) H Urine Ketones Negative (Negative) Urine Blood Negative /uL (Negative) Urine Nitrite Negative (Negative) Urine Bilirubin Negative (Negative) Urine Urobilinogen Normal mg/dL (Negative) Urine Leukocyte Esterase Negative /uL (Negative) Urine RBC <1 /hpf (0 - 3) Urine WBC <1 /hpf (0 - 3) Urine Squamous Epithelial Cells None seen /hpf (<5) Urine Bacteria None seen /hpf (None Seen) Urine Glucose Normal mg/dL (Normal) Microbiology Microbiology Date/Time Source Procedure Growth Status 06/30/24 08:58 Blood Blood Culture - Preliminary NO GROWTH AFTER 24 HOURS OF INCUBATION. Resulted Labs and/or images reviewed: Labs reviewed by me, Image(s) reviewed by me Assessment/Plan Assessment/Plan Abdominal pain,secondary to diverticulitis Admit to medical/surgical With leukocytosis and lactic acidosis Started on Zosyn GI consult Protonix given Zofran p.r.n. nausea Pain medication p.r.n. Blood cultures pending History of chronic hypertension On lisinopril/HCTZ resume (1) Cyclical vomiting syndrome (2) Diverticular disease (3) Non-specific colitis (4) Acute abdominal pain continue with empirical IV Abx Plan discussed with: Patient Date of Service: Jul 01, 2024 Billing Provider: RADHA SAWYER DO Common Visit Codes: [id number] INP/OBS CARE(HIGH) RADHA SAWYER DO Jul 01, 2024 16:09
[2024-07-01] MEDS: HYDROcodone-ACET 5/325MG TAB PO PRN (22:57)
[2024-07-02 05:00] VITALS: BP 126/80; PULSE 70; RESP 18; TEMP 97.8; O2SAT 98
[2024-07-02 08:00] VITALS: PULSE 76; RESP 18; O2SAT 99
[2024-07-02 09:00] VITALS: BP 135/79; PULSE 76; RESP 19; TEMP 97.6; O2SAT 99
[2024-07-02 13:00] VITALS: BP 151/91; PULSE 88; RESP 20; TEMP 97.9; O2SAT 97
[2024-07-02] MEDS ORDERED: METR-344 PO (15:21)
--- NOTE | 2024-07-02 15:22 | DVHDS2 ---
Discharge Summary Date of Admission Jun 30, 2024 at 14:01 Date of Discharge: Jul 02, 2024 Labs/Diagnostic Data: Laboratory Results Test 07/01/24 05:58 06/30/24 11:00 06/30/24 10:30 06/30/24 08:58 White Blood Count 13.5 10^3/uL (4.4-10.8) Red Blood Count 4.89 10^6/uL (4.5-5.90) Hemoglobin 14.6 g/dL (13.5-17.5) Hematocrit 43.2 % (41.0-53.0) Mean Corpuscular Volume 88.3 fL (80.0-100.0) Mean Corpuscular Hemoglobin 29.8 pg (28.0-32.0) Mean Corpuscular Hemoglobin Concent 33.8 g/dL (32.0-36.0) Red Cell Distribution Width 13.5 % (11.8-14.3) Platelet Count 221 10^3/uL (140-450) Mean Platelet Volume 9.0 fL (6.9-10.8) Neutrophils (%) (Auto) 70.3 % (37.0-80.0) Lymphocytes (%) (Auto) 21.5 % (10.0-50.0) Monocytes (%) (Auto) 8.0 % (0.0-12.0) Eosinophils (%) (Auto) 0.0 % (0.0-7.0) Basophils (%) (Auto) 0.2 % (0.0-2.0) Neutrophils # (Auto) 9.5 10 ^3/uL (1.6-8.6) Lymphocytes # (Auto) 2.9 10 ^3/uL (0.4-5.4) Monocytes # (Auto) 1.1 10 ^3/uL (0-1.3) Eosinophils # (Auto) 0 10 ^3/uL (0-0.8) Basophils # (Auto) 0 10 ^3/uL (0-0.2) Nucleated Red Blood Cells 0.0 % Sodium Level 138 mmol/L (136-145) Potassium Level 3.3 mmol/L (3.5-5.1) Chloride Level 104 mmol/L (98-107) Carbon Dioxide Level 25 mmol/L (20-31) Anion Gap 9 (5-15) Blood Urea Nitrogen 12 mg/dL (9-23) Creatinine 1.03 mg/dL (0.700-1.30) Glomerular Filtration Rate Calc 94 mL/min (>90) BUN/Creatinine Ratio 11.7 (10.0-20.0) Serum Glucose 110 mg/dL (74-106) Calcium Level 9.6 mg/dL (8.7-10.4) Lactic Acid Level 3.1 mmol/L (0.4-2.0) Urine Color Light-yellow (Yellow) Urine Clarity Clear (Clear) Urine pH 8.0 (5.0-9.0) Urine Specific [place] 1.021 (1.001-1.035) Urine Protein Trace (Negative) Urine Ketones Negative (Negative) Urine Blood Negative /uL (Negative) Urine Nitrite Negative (Negative) Urine Bilirubin Negative (Negative) Urine Urobilinogen Normal mg/dL (Negative) Urine Leukocyte Esterase Negative /uL (Negative) Urine RBC <1 /hpf (0 - 3) Urine WBC <1 /hpf (0 - 3) Urine Squamous Epithelial Cells None seen /hpf (<5) Urine Bacteria None seen /hpf (None Seen) Urine Glucose Normal mg/dL (Normal) Lipase 40 U/L (12-53) Other Laboratory Tests 07/01/24 05:58 Brief Hx & Hospital Course: 38-year-old male presented to the ED with chief complaint of epigastric burning pain, nausea and vomiting, diarrhea that started last night at 10:00 p.m.. Patient reports pain as constant, nonradiating and burning. Patient denies fever chills bloody stool or urinary symptoms. Symptoms began after eating dinner last night. CT abdomen/pelvis does not show any diverticulitis, does show diverticulosis. Patient's WBCs 14.5, lactic acid 4.0 on the 1st then 3.1. Patient is still complains of abdominal pain and is vomiting. We will place GI consult, give Protonix, and admit to medical/surgical. Patient denies chest pain, headache, dizziness, diaphoresis, shortness of breath, fever, or chills endorsed by the patient. Patient was admitted for further evaluation medical management. Abdominal pain,secondary to diverticulitis Admit to medical/surgical With leukocytosis and lactic acidosis Started on Zosyn GI consult Protonix given Zofran p.r.n. nausea Pain medication p.r.n. Blood cultures obtained History of chronic hypertension On lisinopril/HCTZ resume (1) Cyclical vomiting syndrome (2) Diverticular disease (3) Non-specific colitis (4) Acute abdominal pain continue with empirical IV Abx Condition at Discharge: Stable Final Diagnosis/Problems List see abo e Discharge Disposition: Home Discharge Instruct/Medications Diet: Cardiac 2g Na,low cholest Activity: No Restrictions, As Tolerated Discharge Statement: "Patient was advised to return to the ER or call 911 if any headaches, dizziness, shortness of breath, chest pain, abdominal pain, bleeding, fevers, or worsening of medical condition. Patient was counseled about treatment plan, medications, possible side effects, patientverbalized understanding. All questions were answered to the best of my ability. This discharge took greater then 30 minutes in planning, reviewing documentation, counseling the patient, and discussing with other team members." ASSESSMENT ASSESSMENT Assessment Date of Service: Jul 02, 2024 Billing Provider: RADHA SAWYER DO Common Visit Codes: 85042-SAN/OBS DISCH DAY >30min RADHA SAWYER DO Jul 02, 2024 15:22
[2024-07-02 16:53] VITALS: BP 151/91; PULSE 88; RESP 16; TEMP 97.9; O2SAT 97
--- NOTE | 2024-07-02 22:07 | DVHPN2 ---
Progress Note - Dictate Date Seen: Jul 02, 2024 (Late entryPatient seen at 9:30 a.m.) Medical Necessity Reason Pt with a Central, PICC or Fol: No Subjective Patient seen at bedside, no new complaints He feels better Patient was concerned about recurrent episodes He recently took antibiotics for upper respiratory infection he believes it was Zithromax Z-Chetan He believes it may have aggravated his GI symptoms Patient had recent colonoscopy at the [facility] there was some diverticular disease and small benign polyps were removed in March of this year vital signs Vital Sign Date Time Temp Pulse Resp B/P (MAP) Pulse Ox O2 Delivery O2 Flow Rate FiO2 07/02/24 16:53 97.9 88 16 97 07/02/24 13:00 151/91 (111) 07/02/24 08:00 Room Air* 0 21 Total Intake and Output 07/01/24 07/01/24 07/02/24 15:00 23:00 07:00 Intake Total 500 ml Balance 500 ml objective General: NAD, AAOX3 Chest: lung duke clear to auscultation Heart: RRR, no murmur Abdomen: non-distended, mild epigastric tenderness to palpation, +BS laboratory and microbiology Laboratory Tests 07/01/24 05:58 Test 07/01/24 05:58 Range/Units Serum Glucose 110 H 74-106 mg/dL Problems(with codes): (1) Cyclical vomiting syndrome (2) Diverticular disease (3) Non-specific colitis (4) Acute abdominal pain Prognosis Plan Patient had taken some antibiotics for an upper respiratory infection recently I suspect the patient had side effects related to the antibiotics with aggravation of his gastritis from the Z-Chetan He denies recent marijuana use his last use of marijuana was in December making cyclical vomiting syndrome less likely Advance diet as tolerated Patient was advised to take probiotics whenever he takes antibiotics Ppi for gastritis Continue supportive care Discharge planning as per hospitalist Outpatient follow up with me in 4-6 weeks or as needed to review all his results and discuss further management Plan discussed with: Patient GERARDO SUAZO MD Jul 02, 2024 22:07
== END 2024-07-02 17:20 | disposition home or self-care (01) | DRG 244 ==
LOC: ER 07:46 → OVERFLOW 14:01 → CENTRAL 07-01 22:29
PROVIDERS: ADMIT Registered Nurse General Practice; ATTEND Internal Medicine
DX: K57.30 Diverticulosis of large intestine without perforation or abscess without bleeding (principal); E87.20 Acidosis, unspecified; E78.5 Hyperlipidemia, unspecified; I10 Essential (primary) hypertension; K52.9 Noninfective gastroenteritis and colitis, unspecified; Z87.891 Personal history of nicotine dependence; Z88.6 Allergy status to analgesic agent; Z79.899 Other long term (current) drug therapy; R11.15 Cyclical vomiting syndrome unrelated to migraine
CPT/HCPCS: 36415; 74176; 80048; 81001; 83605; 83690; 85025; 87040; 96365; 96375; G0378; J2405; J2470; J2543

== ENCOUNTER 2025-01-18 07:37 | Inpatient (IN) | payer MEDICAID ==
[~2025-01-18] VITALS: Ht 177.8 cm; Wt 134.0 kg
[~2025-01-18 07:37] MED LIST changes: -ATOR20TA50 PO; -CHLO25TA2 PO; -LEVO500T91 PO; +LISI-287 PO; -LISI20TA56 PO; -MET500T PO; +METR-344 PO; +OMEG-86 PO; -POTA-36 PO
--- NOTE | 2025-01-18 08:07 | ED.PDOC ---
GI ASSESSMENT HPI Comments 39 y.o male with PMHx of diverticulitis, presents to the ED for a chief complaint of diffused abdominal pain associated with nausea and vomiting that started this morning. Patient reports pain is constant, non radiating, and rating a 10/10 on the pain scale. Patient's pain worsens on palpation and has no alleviating factors. He denies any fever, chills, chest pain, SOB, bloody stool or diarrhea. Chief Complaint: Abdominal Pain Time Seen by MD: 07:50 Primary Care Provider: Unknown Allergies: Coded Allergies: Ibuprofen (Verified Allergy, Unknown, 11/15/21) Latex (Verified Allergy, Unknown, 11/15/21) Home Meds Active Scripts Metronidazole (Flagyl) 500 Mg Tab, 500 MG PO TID for 7 Days, #21 TAB Prov:RADHA SAWYER DO 07/02/24 Pantoprazole Sodium Sesquihydr (Pantoprazole Sodium) 40 Mg Tab, 40 MG PO DAILY for 30 Days, #30 TAB Prov:DANNA TORRES RESIDENT 12/09/23 Acetaminophen (Acetaminophen) 325 Mg Tab, 650 MG PO Q6HP PRN for 30 Days, #240 TAB Prov:DANNA TORRES RESIDENT 12/09/23 Reported Medications Amlodipine Besylate (Amlodipine Besylate) 10 Mg Tab, 1 TAB PO DAILY 01/18/25 Chlorthalidone (Chlorthalidone) 25 Mg Tab, 1 TAB PO DAILY 01/18/25 Gabapentin (Gabapentin) 300 Mg Cap, 1 CAP PO DAILY 01/18/25 Atorvastatin Calcium (ATORVASTATIN CALCIUM) 20 Mg Tab, 1 TAB PO DAILY 01/18/25 Losartan Potassium (Losartan Potassium) 50 Mg Tab, 1 TAB PO DAILY 01/18/25 Twpep-7-Pfdb Ethyl Esters (Uritv-2-Avse Ethyl Esters) 1 Gm Cap, 1 GM PO DAILY, CAP 07/01/24 Lisinopril & Hydrochlorothiazi (Lisinopril/Hydrochlorothi) 1 Tab Tab, 1 TAB PO DAILY 06/30/24 Cholecalciferol (VITAMIN D3) 5,000 Unit Cap, 1 CAP PO DAILY 12/08/23 Mode of Arrival: Ambulatory Past Medical History Past Medical History (Other): Diverticulitis Surgical History: Denies all surgeries Family History Family History: No family hx of DM, No family hx of Heart marcelo, No family hx of HTN Social History Smoker: Quit Less Than 1 Year, Other Alcohol: Occasionally Drugs: Marijuana Lives In: Home Physical Exam General Appearance: Moderate Distress HEENT: Normal ENT Inspection, Pharynx Normal, TMs Normal Neck: Full Range of Motion, Non-Tender, Normal, Normal Inspection Respiratory: Chest Non-Tender, Lungs Clear, No Accessory Muscle Use, No Respiratory Distress, Normal Breath Sounds Cardiovascular: No Edema, No JVD, No Murmur, No Gallop, Normal Peripheral Pulses, Regular Rate/Rhythm Breast Exam: Deferred Gastrointestinal: No Organomegaly, Non Tender, No Pulsatile Mass, Normal Bowel Sounds, Soft Genitalia: Deferred Pelvic: Deferred Rectal: Deferred Extremities: No calf tenderness, Normal capillary refill, Normal inspection, Normal range of motion, Non-tender, No pedal edema Musculoskeletal : Apperance: Normal Neurologic: Alert, development chemist II-XII nml as Tested, No Motor Deficits, Normal Affect, Normal Mood, No Sensory Deficits Cerebellar Function: Normal Reflexes: Normal Skin: Dry, Normal Color, Warm Peripheral Pulses: 3+ Radial (R), 3+ Radial (L) Lymphatic: No Adenopathy EKG EKG : Pulse Rate (adult): 70 Cardiac Rhythm: NSR Was a procedure done? Was a procedure done?: No GI differential Dx Differential Diagnosis: Constipation, Diverticular disease, Esophagitis, Gastritis/PUD, Gastroenteritis X-Ray, Labs, Meds, VS Vital Signs Date Time Temp Pulse Resp B/P (MAP) Pulse Ox O2 Delivery O2 Flow Rate FiO2 01/18/25 08:29 70 01/18/25 08:22 66 16 100 Room Air* 0 21 01/18/25 08:20 66 16 197/113 01/18/25 08:20 97.5 66 16 100 97.5 01/18/25 07:55 64 01/18/25 07:49 97.0 69 20 188/107 (134) 100 97.0 Lab Test 01/18/25 08:30 01/18/25 08:08 Range/Units Urine Color Colorless Yellow Urine Clarity Clear Clear Urine pH 8.0 5.0-9.0 Urine Specific [place] 1.013 1.001-1.035 Urine Protein Negative Negative Urine Ketones Negative Negative Urine Blood Negative Negative /uL Urine Nitrite Negative Negative Urine Bilirubin Negative Negative Urine Urobilinogen Normal Negative mg/dL Urine Leukocyte Esterase Negative Negative /uL Urine RBC <1 0 - 3 /hpf Urine Microscopic WBC < 1 0-3 /HPF Urine Squamous Epithelial Cells None seen <5 /hpf Urine Bacteria None seen None Seen /hpf Urine Glucose Normal Normal mg/dL Urine Opiates Screen Neg NEGATIVE Urine Fentanyl Screen Neg NEGATIVE Urine Barbiturates Screen Neg NEGATIVE Urine Phencyclidine Screen Neg NEGATIVE Urine Amphetamines Screen Neg NEGATIVE Urine Benzodiazepines Screen Neg NEGATIVE Urine Cocaine Screen Neg NEGATIVE Urine Cannabinoids Screen Pos NEGATIVE White Blood Count 12.2 H 4.4-10.8 10^3/uL Red Blood Count 5.30 4.5-5.90 10^6/uL Hemoglobin 15.8 13.5-17.5 g/dL Hematocrit 45.7 41.0-53.0 % Mean Corpuscular Volume 86.3 80.0-100.0 fL Mean Corpuscular Hemoglobin 29.8 28.0-32.0 pg Mean Corpuscular Hemoglobin Concent 34.6 32.0-36.0 g/dL Red Cell Distribution Width 13.9 11.8-14.3 % Platelet Count 222 140-450 10^3/uL Mean Platelet Volume 8.7 6.9-10.8 fL Neutrophils (%) (Auto) 75.2 37.0-80.0 % Lymphocytes (%) (Auto) 19.2 10.0-50.0 % Monocytes (%) (Auto) 4.8 0.0-12.0 % Eosinophils (%) (Auto) 0.5 0.0-7.0 % Basophils (%) (Auto) 0.3 0.0-2.0 % Neutrophils # (Auto) 9.1 H 1.6-8.6 10 ^3/uL Lymphocytes # (Auto) 2.3 0.4-5.4 10 ^3/uL Monocytes # (Auto) 0.6 0-1.3 10 ^3/uL Eosinophils # (Auto) 0.1 0-0.8 10 ^3/uL Basophils # (Auto) 0 0-0.2 10 ^3/uL Nucleated Red Blood Cells 0.0 % Sodium Level 142 136-145 mmol/L Potassium Level 3.7 3.5-5.1 mmol/L Chloride Level 110 H 98-107 mmol/L Carbon Dioxide Level 19 L 20-31 mmol/L Anion Gap 13 5-15 Blood Urea Nitrogen 9 9-23 mg/dL Creatinine 0.98 0.700-1.30 mg/dL Glomerular Filtration Rate Calc 99 >90 mL/min BUN/Creatinine Ratio 9.2 L 10.0-20.0 Serum Glucose 133 H 74-106 mg/dL Calcium Level 10.1 8.7-10.4 mg/dL Current Medications Medications (Trade) Dose Ordered Sig/Darshana Route Start Time Stop Time Status Last Admin Ondansetron HCl (Zofran) 4 mg ONCE ONCE IV 01/18/25 08:15 01/18/25 08:16 DC 01/18/25 08:17 Morphine Sulfate 4 mg ONCE ONCE IV 01/18/25 08:15 01/18/25 08:16 DC 01/18/25 08:20 Sodium Chloride 1,000 ml @ 1,000 mls/hr Q1H ONCE IV 01/18/25 08:30 01/18/25 09:29 DC 01/18/25 08:30 Sodium Chloride 1,000 ml @ 150 mls/hr Q6H40M ONCE IV 01/18/25 08:30 01/18/25 10:35 DC 01/18/25 08:30 Labetalol HCl (Labetalol HCl) 10 mg ONCE ONCE IV 01/18/25 08:30 01/18/25 08:31 DC 01/18/25 09:12 Patient alert. Complaining of nausea vomiting. Vitals stable. Answering questions. Abdomen is soft. Possibly marijuana induced. Establish intravenous access. Was given fluids. Was given morphine. Was given Zofran. WBC elevated. Hemoglobin within normal limits. Blood pressure elevated. Was given labetalol. Continue to monitor. EKG reviewed does not show any acute changes. Time of 1ST Reevaluation: 17:46 Reevaluation 1ST: Unchanged Patient Education/Counseling: Diagnosis, Treatment, Prognosis, Need For Follow Up Family Education/Counseling: No Family Present Departure 1 Departure Time of Disposition: 08:27 Impression: Primary Impression: Hypertensive emergency Additional Impressions: Acute abdominal pain Non-specific colitis Disposition: ADMITTED INPATIENT Admit to: Med Surg Condition: Guarded Critical Care Note Critical Care Time?: Yes (90 min-critical care time only) Critical care comment: Blood pressure elevated continue to monitor Stability Stability form required: No Heart Score Heart Score: Heart Score Response (Comments) Value History Slightly Suspicious 0 EKG Normal 0 Age <45 0 Risk Factors 1 or 2 risk factors 1 Troponin Normal limit 0 Total 1 I personally scribed for HIREN DAVIES MD ([email or web address]) on 01/18/25 at 08:07. Electronically submitted by Lakia Boyle ([facility]). I personally scribed for HIREN DAVIES MD ([email or web address]) on 01/18/25 at 08:34. Electronically submitted by Lakia Boyle ([facility]). HIREN DAVIES MD Jan 18, 2025 08:07
[2025-01-18] MEDS: ONDANSETRON HCL 4 MG/2 ML VIAL IV ONE (08:17)
[2025-01-18] MEDS: MORPHINE SULFATE 4 MG/ML SYR/VIAL IV ONE (08:20)
[2025-01-18 08:22] VITALS: PULSE 66; RESP 16; O2SAT 100
[2025-01-18 08:22] LABS: Basophils # (auto) 0 10 ^3/uL (0-0.2); Basophils % (auto) 0.3 % (0.0-2.0); Eosinophils # (auto) 0.1 10 ^3/uL (0-0.8); Eosinophils % (auto) 0.5 % (0.0-7.0); Hematocrit 45.7 % (41.0-53.0); Hemoglobin 15.8 g/dL (13.5-17.5); Lymphocytes # (auto) 2.3 10 ^3/uL (0.4-5.4); Lymphocytes % (auto) 19.2 % (10.0-50.0); Mean Corpuscular Hemoglobin 29.8 pg (28.0-32.0); Mean Corpuscular Hgb Conc. 34.6 g/dL (32.0-36.0); Mean Corpuscular Volume 86.3 fL (80.0-100.0); Monocytes # (auto) 0.6 10 ^3/uL (0-1.3); Monocytes % (auto) 4.8 % (0.0-12.0); Neutrophils # (auto) 9.1 10 ^3/uL (1.6-8.6); Neutrophils % (auto) 75.2 % (37.0-80.0); Platelet Count (auto) 222 10^3/uL (140-450); Red Cell Distribution Width 13.9 % (11.8-14.3); White Blood Cell 12.2 10^3/uL (4.4-10.8)
[2025-01-18] MEDS: SODIUM CHLORIDE 0.9% 1,000 ML IV ONE ×2 (08:30)
[2025-01-18 08:39] LABS: Anion Gap 13 (5-15); Calcium 10.1 mg/dL (8.7-10.4)
[2025-01-18 08:42] LABS: BUN/Creatinine Ratio 9.2 (10.0-20.0); Blood Urea Nitrogen 9 mg/dL (9-23); Carbon Dioxide 19 mmol/L (20-31); Chloride 110 mmol/L (98-107); Glucose 133 mg/dL (74-106); Potassium 3.7 mmol/L (3.5-5.1); Sodium 142 mmol/L (136-145)
[2025-01-18 08:59] LABS: Urine Bacteria None Seen /hpf (None Seen)
[2025-01-18] MEDS ORDERED: MORPHINE SULFATE INJ 2 MG/ml SYRG IV PRN ×2 (09:00)
[2025-01-18] MEDS ORDERED: NITROGLYCERIN 0.4 MG SL TAB SL PRN (09:00)
[2025-01-18] MEDS: SODIUM CHLORIDE 0.9% 1,000 ML IV SCH (09:00)
[2025-01-18] MEDS ORDERED: VANCOMYCIN PER PHARMACY 0 MG IV SCH (09:00)
[2025-01-18 09:06] LABS: Urine Blood Negative /uL (Negative); Urine Clarity Clear (Clear); Urine Color Colorless (Yellow); Urine Protein, UAD Negative (Negative); Urine Specific Gravity 1.013 (1.001-1.035); Urine Squamous Epithelial Cell None Seen /hpf (<5); Urine Urobilinogen Normal (Negative); Urine WBC < 1 /HPF (0-3)
[2025-01-18] MEDS: LABETALOL HCL 20 MG/4 ML VL IV ONE (09:12)
[2025-01-18 09:16] LABS: Opiate Scree,Urine Neg (NEGATIVE)
[2025-01-18 09:17] LABS: Amphetamine Screen, Urine Neg (NEGATIVE); Barbiturate Scree,Urine Neg (NEGATIVE); Benzodiazephine Screen, Urine Neg (NEGATIVE); Cannabinoid Screen, Urine Pos (NEGATIVE); Cocaine Screen, Urine Neg (NEGATIVE); Phencyclidine Screen, Urine Neg (NEGATIVE)
[2025-01-18] MEDS: PROCHLORPERAZINE EDISYLATE 5 MG/ML 2ML VIAL IV ONE (09:30)
[2025-01-18] MEDS ORDERED: LOSA-534 PO (09:43)
[2025-01-18] MEDS ORDERED: ATOR20TA50 PO (09:43)
[2025-01-18] MEDS ORDERED: GABA-1250 PO (09:43)
[2025-01-18] MEDS ORDERED: AMLO1TAB23 PO (09:43)
[2025-01-18] MEDS ORDERED: CHLO25TA2 PO (09:43)
--- NOTE | 2025-01-18 09:48 | DVHHP2 ---
History of Present Illness Reason for Visit: Abdominal pain with nausea and vomiting History of Present Illness Iban Jennings is a 39-year-old male with past medical history of hypertension, hyperlipidemia, gastritis, diverticulitis, and bilateral carpal tunnel surgery who presents to the ED with abdominal pain and nausea with vomiting. Patient reports that this started last night and current pain is 5/10 sharp as well as cramping and constant. Patient states that there are no triggering or alleviating factors. Patient denies melena, hematochezia, and hematemesis. Patient denies any recent sick contacts, recent travels, recent trauma or injury, chest pain, shortness of breath, fever, chills, lightheadedness, weakness, dizziness, or diarrhea. Cardiovascular: HTN, hyperipidemia GI: Gastritis, Other (Diverticulitis) Past Surgical History: Other (Bilateral carpal tunnel surgery) Family History: None Smoke: Quit ALCOHOL: occassional Drugs: Marijuana Lives: with Family Domestic Violence: Neg Review of Systems Constitutional: Yes: Other (Diaphoretic) Gastrointestinal: Nausea, Vomiting, Abdominal Pain Allergies: Coded Allergies: Ibuprofen (Verified Allergy, Unknown, 11/15/21) Latex (Verified Allergy, Unknown, 11/15/21) Exam Vital Signs Vital Signs Date Time Temp Pulse Resp B/P (MAP) Pulse Ox O2 Delivery O2 Flow Rate FiO2 01/18/25 09:12 72 185/128 01/18/25 08:22 16 100 Room Air* 0 21 01/18/25 08:20 97.5 97.5 General Appearance: Alert, Oriented X3, Cooperative, moderate distress HEENT: Atraumatic, PERRLA, EOMI, Mucous membr. moist/pink Respiratory: Normal air movement Cardiovascular: Normal S1, Normal S2 Abdominal: Soft Extremities: No cyanosis, No edema, Normal pulses Skin: No significant lesion Neuro: Normal speech, Strength at 5/5 X4 ext, Normal tone, Sensation intact Psych/Mental Status: Mental status NL, Mood NL Labs/Xrays Labs Test 01/18/25 08:30 01/18/25 08:08 Range/Units Urine Color Colorless Yellow Urine Clarity Clear Clear Urine pH 8.0 5.0-9.0 Urine Specific [place] 1.013 1.001-1.035 Urine Protein Negative Negative Urine Ketones Negative Negative Urine Blood Negative Negative /uL Urine Nitrite Negative Negative Urine Bilirubin Negative Negative Urine Urobilinogen Normal Negative mg/dL Urine Leukocyte Esterase Negative Negative /uL Urine RBC <1 0 - 3 /hpf Urine Microscopic WBC < 1 0-3 /HPF Urine Squamous Epithelial Cells None seen <5 /hpf Urine Bacteria None seen None Seen /hpf Urine Glucose Normal Normal mg/dL Urine Opiates Screen Neg NEGATIVE Urine Fentanyl Screen Neg NEGATIVE Urine Barbiturates Screen Neg NEGATIVE Urine Phencyclidine Screen Neg NEGATIVE Urine Amphetamines Screen Neg NEGATIVE Urine Benzodiazepines Screen Neg NEGATIVE Urine Cocaine Screen Neg NEGATIVE Urine Cannabinoids Screen Pos NEGATIVE White Blood Count 12.2 H 4.4-10.8 10^3/uL Red Blood Count 5.30 4.5-5.90 10^6/uL Hemoglobin 15.8 13.5-17.5 g/dL Hematocrit 45.7 41.0-53.0 % Mean Corpuscular Volume 86.3 80.0-100.0 fL Mean Corpuscular Hemoglobin 29.8 28.0-32.0 pg Mean Corpuscular Hemoglobin Concent 34.6 32.0-36.0 g/dL Red Cell Distribution Width 13.9 11.8-14.3 % Platelet Count 222 140-450 10^3/uL Mean Platelet Volume 8.7 6.9-10.8 fL Neutrophils (%) (Auto) 75.2 37.0-80.0 % Lymphocytes (%) (Auto) 19.2 10.0-50.0 % Monocytes (%) (Auto) 4.8 0.0-12.0 % Eosinophils (%) (Auto) 0.5 0.0-7.0 % Basophils (%) (Auto) 0.3 0.0-2.0 % Neutrophils # (Auto) 9.1 H 1.6-8.6 10 ^3/uL Lymphocytes # (Auto) 2.3 0.4-5.4 10 ^3/uL Monocytes # (Auto) 0.6 0-1.3 10 ^3/uL Eosinophils # (Auto) 0.1 0-0.8 10 ^3/uL Basophils # (Auto) 0 0-0.2 10 ^3/uL Nucleated Red Blood Cells 0.0 % Sodium Level 142 136-145 mmol/L Potassium Level 3.7 3.5-5.1 mmol/L Chloride Level 110 H 98-107 mmol/L Carbon Dioxide Level 19 L 20-31 mmol/L Anion Gap 13 5-15 Blood Urea Nitrogen 9 9-23 mg/dL Creatinine 0.98 0.700-1.30 mg/dL Glomerular Filtration Rate Calc 99 >90 mL/min BUN/Creatinine Ratio 9.2 L 10.0-20.0 Serum Glucose 133 H 74-106 mg/dL Calcium Level 10.1 8.7-10.4 mg/dL Exam: CT CT AB PEL WO CON-NO ORAL OR IV History: abdominal pain Comparison Study: CT CT AB PEL WO CON-NO ORAL OR IV on DOS: 06/30/24, CT CT AB PEL WO CON-NO ORAL OR IV on DOS: 12/07/23 Technique: Multidetector spiral CT of the abdomen and pelvis was performed from lung bases to pubic symphysis. Imaging was performed without IV contrast. Axial, coronal and sagittal multiplanar reformats were obtained from the axial data set by the technologist. Radiation dose : Abdomen/Pelvis: CTDIvol 26.19 mGy, DLP 1650.32 mGy*cm. Findings: Evaluation of solid organs is limited due to lack of intravenous contrast use. Lung Bases: No acute or significant lung base finding. Normal heart size. No pleural or pericardial effusion. Liver: The liver is normal in size. No focal lesions. Gallbladder and biliary Tree: Unremarkable Spleen: Unremarkable Pancreas: The pancreas is grossly normal in appearance. Adrenal Glands: Unremarkable Kidneys: Kidneys are grossly normal without calculi or hydronephrosis. Bladder: Grossly unremarkable for degree of distention. Bowel: The stomach is grossly normal in appearance. Small bowel and colon are normal in caliber and distribution. Normal appendix is visualized in the right lower quadrant without findings of appendicitis. Sigmoid diverticulosis. Ascites: Absent Lymphadenopathy: Mildly prominent but subcentimeter bilateral iliac chain lymph nodes. Abdominal wall and Mesentery: Unremarkable. Vasculature: The visualized abdominal aorta is normal in size and caliber. Evaluation of abdominal and pelvic vessels is limited due to lack of intravenous contrast. Pelvic Organs: Unremarkable Musculoskeletal: No aggressive focal bony lesions, acute fractures or dislocation. IMPRESSION: 1. No acute abdominal or pelvic findings. Diverticulosis. Bilateral iliac chain lymphadenopathy similar to prior. Clinical correlation and continued follow-up is recommended. Assessment/Plan Assessment/Plan Assessment Intractable abdominal pain with nausea and vomiting Hypertensive urgency Leukocytosis rule out sepsis Morbid obesity Tobacco use Marijuana use History of hypertension History of hyperlipidemia History of gastritis History of diverticulitis History of bilateral carpal tunnel surgery Plan Admit to med surge Antiemetics Pain management Antihypertensives IV antibiotics-vancomycin +Zosyn Beta blockers NS 2.5 L given ED EKG noted UDS UA CT abdomen and pelvis Lactic level IV fluids Blood cultures Diet Home medications reconciled DVT prophylaxis-not indicated patient ambulating PUD prophylaxis-PPIs Discussed plan of care with patient and nurse Counseled patient on lifestyle modifications, diet, and exercise Counseled patient on cessation of substance abuse and tobacco abuse Plan discussed with: Patient My Orders Orders - SILVINODELLAHiram Tacos [employer]OR Procedure Category Date Status Time Vancomycin Per PHA 01/18/25 Logged Pharmacy 09:00 Piperacillin-Tazob PHA 01/18/25 Logged 3.375gm (Zosyn 3.375g 09:00 Admit ADMIT 01/18/25 Transmitted 08:57 Allergies MARGE 01/18/25 In Process 08:57 Code Status CODE 01/18/25 Transmitted 08:57 Sodium Chloride 0.9% PHA 01/18/25 Logged 09:00 Hydrocodone-Acet PHA 01/18/25 Logged 5/325mg Tab ([place] 09:00 Ondansetron Hcl PHA 01/18/25 Logged (Zofran) 09:00 Complete Blood Count LAB 01/19/25 Verified 04:00 Comprehensive LAB 01/19/25 Verified Metabolic Panel 04:00 Cardiac DIET 01/18/25 Transmitted Diet-2gna,Lofat,Lochol Breakfast Acetaminophen Tablet PHA 01/18/25 Logged (Tylenol Tablet) 09:00 Morphine Sulfate PHA 01/18/25 Logged Injection 09:00 Sequential MARGE 01/18/25 In Process Compression Device Nitroglycerin PHA 01/18/25 Logged Sublingual (Ntrostat 09:00 Morphine Sulfate PHA 01/18/25 Logged Injection 09:00 Stat Ekg For Chest MARGE 01/18/25 In Process Pain 08:57 Notify Of Changes MARGE 01/18/25 In Process From Base 08:57 Garment Parts Cutter Machine For MARGE 01/18/25 In Process 24 Hours 08:57 Emergency Dysrhythmia MAREG 01/18/25 In Process Protocol 08:57 Rhythm Strips Once MARGE 01/18/25 In Process Every Shift 08:57 Oxygen By Nasal RT 01/18/25 Transmitted Cannula 08:57 Ct Ab Pel Wo Con-No CT 01/18/25 Logged Oral Or Iv 08:57 (Nf) Cholecalciferol PHA 01/18/25 Logged (Vitamin D3) 10:00 (Nf) Lisinopril & PHA 01/18/25 Logged Hydrochlorothiazi (Lis 10:00 (Nf) Bzqbh-5-Fihz PHA 01/18/25 Logged Ethyl Esters 10:00 Atorvastatin (Lipitor) PHA 01/18/25 Transmitted 10:00 Chlorthalidone PHA 01/18/25 Transmitted (Chlorthalidone) 10:00 Losartan Tablet PHA 01/18/25 Transmitted (Cozaar Tablet) 10:00 (Nf) Amlodipine PHA 01/18/25 Transmitted Besylate 10:00 Date of Service: Jan 18, 2025 Billing Provider: IRMA DUBOIS Common Visit Codes: [id number] INP/OBS CARE (HIGH) IRMA DUBOIS Jan 18, 2025 09:48
[2025-01-18] MEDS ORDERED: PATIENTS OWN MEDICATION (Lisinopril & Hydrochlorothiazi (Lisinopril/Hydrochlorothi) 1 TAB) PO SCH (10:00)
[2025-01-18] MEDS: OMEGA ACID ETHYL ESTERS PO SCH (10:00)
[2025-01-18] MEDS: ATORVASTATIN 20 MG TAB PO SCH (10:00)
[2025-01-18] MEDS: CHLORTHALIDONE 25 MG TAB PO SCH (10:00)
[2025-01-18] MEDS: PANTOPRAZOLE 40 MG/10 ML VIAL INJ IV SCH (10:20)
[2025-01-18] MEDS: VANCOMYCIN 1GM/200ML PM 250 ML IV SCH (10:30)
[2025-01-18] MEDS: amLODIPine BESYLATE 5 MG TAB PO SCH (10:32)
[2025-01-18] MEDS ORDERED: LOSARTAN POTASSIUM 50 MG TAB PO SCH (10:33)
--- NOTE | 2025-01-18 10:40 | ECG ---
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
[2025-01-18] MEDS: LOSARTAN POTASSIUM 50 MG TAB PO SCH (10:49)
--- NOTE | 2025-01-18 11:15 | DVH ---
Exam: CT CT AB PEL WO CON-NO ORAL OR IV History: abdominal pain Comparison Study: CT CT AB PEL WO CON-NO ORAL OR IV on DOS: 06/30/24, CT CT AB PEL WO CON-NO ORAL OR IV on DOS: 12/07/23 Technique: Multidetector spiral CT of the abdomen and pelvis was performed from lung bases to pubic symphysis. Imaging was performed without IV contrast. Axial, coronal and sagittal multiplanar reform ats were obtained from the axial data set by the technologist. Radiation dose : Abdomen/Pelvis: CTDIvol 26.19 mGy, DLP 1650.32 mGy*cm. Findings: Evaluation of solid organs is limited due to lack of intravenous contrast use. Lung Bases: No acute or significant lung base finding. Normal heart size. No pleural or pericardial effusion. Liver: The liver is normal in size. No focal lesions. Gallbladder and biliary Tree: Unremarkable Spleen: Unremarkable Pancreas: The pancreas is grossly normal in appearance. Adrenal Glands: Unremarkable Kidneys: Kidneys are grossly normal without calculi or hydronephrosis. Bladder: Grossly unremarkable for degree of distention. Bowel: The stomach is grossly normal in appearance. Small bowel and colon are normal in caliber and d istribution. Normal appendix is visualized in the right lower quadrant without findings of appendicit is. Sigmoid diverticulosis. Ascites: Absent Lymphadenopathy: Mildly prominent but subcentimeter bilateral iliac chain lymph nodes. Abdominal wall and Mesentery: Unremarkable. Vasculature: The visualized abdominal aorta is normal in size and caliber. Evaluation of abdominal a nd pelvic vessels is limited due to lack of intravenous contrast. Pelvic Organs: Unremarkable Musculoskeletal: No aggressive focal bony lesions, acute fractures or dislocation. IMPRESSION: 1. No acute abdominal or pelvic findings. Diverticulosis. Bilateral iliac chain lymphadenopathy simil ar to prior. Clinical correlation and continued follow-up is recommended. Radiation optimization: All CT scans at this facility use at least one of these dose optimization jeffrey hniques: Automated exposure control mA and/or kV adjustment per patient size (includes targeted exams where dose is matched to clinical indication) or iterative reconstruction. HS:Y
[2025-01-18] MEDS: FLORASTOR (S. BOULARDII) 250 MG CAP PO SCH (11:23)
[2025-01-18] MEDS: hydrALAZINE HCL 20 MG/ML VL IV PRN (12:00)
[2025-01-18] MEDS: PIPERACILLIN-TAZOB 3.375GM 100 ML IV SCH (12:00)
[2025-01-18] MEDS: GABAPENTIN 300 MG CAP PO SCH (15:03)
[2025-01-18] MEDS: CHOLECALCIFEROL (VITD3) 1,000UNIT=25mCg TAB PO SCH (15:03)
[2025-01-18] MEDS: ONDANSETRON HCL 4 MG/2 ML VIAL IV PRN (16:16)
[2025-01-18] MEDS: MORPHINE SULFATE 4 MG/ML SYR/VIAL IV PRN (16:32)
[2025-01-18] MEDS ORDERED: VANCOMYCIN 1GM/200ML PM 200 ML IV SCH (18:00)
[2025-01-18 20:00] VITALS: PULSE 95; RESP 18
[2025-01-18] MEDS: PIPERACILLIN-TAZOB 3.375GM 100 ML IV ONE (20:44)
[2025-01-18 21:00] VITALS: BP 187/96; PULSE 95; RESP 18; TEMP 98.8; O2SAT 96
[2025-01-18] MEDS: VANCOMYCIN 1GM/200ML PM 200 ML IV SCH (22:17)
[2025-01-19] VITALS (8 sets, daily range): BP systolic 140–169; BP diastolic 87–109; PULSE 78–101; RESP 16–20; TEMP 97.8–99.1; O2SAT 94–98
[2025-01-19] MEDS: PIPERACILLIN-TAZOB 3.375GM 100 ML IV SCH (01:19)
[2025-01-19] MEDS: HYDROcodone-ACET 5/325MG TAB PO PRN (04:53)
[2025-01-19 06:06] LABS: Eosinophils # (auto) 0 10 ^3/uL (0-0.8); Lymphocytes # (auto) 2.6 10 ^3/uL (0.4-5.4); Lymphocytes % (auto) 11.6 % (10.0-50.0); Nucleated Red Blood Cells % 0.1 %
[2025-01-19 06:11] LABS: Basophils # (auto) 0.1 10 ^3/uL (0-0.2); Basophils % (auto) 0.3 % (0.0-2.0); Hematocrit 50.7 % (41.0-53.0); Hemoglobin 17.7 g/dL (13.5-17.5); Mean Corpuscular Hemoglobin 30.4 pg (28.0-32.0); Mean Corpuscular Hgb Conc. 34.9 g/dL (32.0-36.0); Mean Corpuscular Volume 87.1 fL (80.0-100.0); Monocytes # (auto) 1.4 10 ^3/uL (0-1.3); Monocytes % (auto) 6.1 % (0.0-12.0); Neutrophils # (auto) 18.4 10 ^3/uL (1.6-8.6); Platelet Count (auto) 281 10^3/uL (140-450); Red Blood Cells 5.82 10^6/uL (4.5-5.90); White Blood Cell 22.4 10^3/uL (4.4-10.8)
[2025-01-19 06:20] LABS: Alkaline Phosphatase 71 U/L (46-116); Anion Gap 13 (5-15); BUN/Creatinine Ratio 7.5 (10.0-20.0); Blood Urea Nitrogen 9 mg/dL (9-23); Carbon Dioxide 25 mmol/L (20-31); Chloride 100 mmol/L (98-107); Sodium 138 mmol/L (136-145)
[2025-01-19 06:22] LABS: Aspartate Aminotransferase 30 U/L (13-40); Bilirubin, Total 0.9 mg/dL (0.2-1.0)
[2025-01-19 06:25] LABS: Alanine Aminotransferase 51 U/L (7-40); Albumin 5.6 g/dL (3.2-4.8); Calcium 10.6 mg/dL (8.7-10.4); Glucose 117 mg/dL (74-106); Potassium 3.4 mmol/L (3.5-5.1); Total Protein 8.7 g/dL (5.7-8.2)
[2025-01-19] MEDS ORDERED: TRAM50TA2 PO (06:40)
--- NOTE | 2025-01-19 10:59 | DVHPN2 ---
Subjective 39-year-old male with a history of diverticulosis in the past came with a chief complaint of nausea and vomiting and mild abdominal pain for [address] scan of the abdomen showed diverticulosis but no other problems The lactic acid was high WBCs were also high He is feeling better now Changes from previous H/P or p: Changes Gastrointestinal: Nausea, Vomiting, Abdominal Pain Objective Vitals Vital Signs Date Time Temp Pulse Resp B/P (MAP) Pulse Ox O2 Delivery O2 Flow Rate FiO2 01/19/25 10:01 145/93 01/19/25 08:47 97.8 87 18 94 97.8 01/19/25 08:00 Room Air* 0 97 21 Intake/Output Intake and Output 01/19/25 07:00 Intake Total 2140 ml Output Total 150 ml Balance 1990 ml Intake Oral 940 ml IV Total 1200 ml Output Emesis 150 ml # Voids 4 General Appearance: Alert, Oriented X3, Cooperative, No acute distress Lungs: Clear to auscultation, Normal air movement Cardiovascular: Regular rate, Normal S1, Normal S2 Abdomen: Normal bowel sounds, Soft, No tenderness Extremities: No edema Medications Current Medications Medications Dose Ordered Sig/Darshana Route Start Time Stop Time Status Last Admin Dose Admin Vancomycin HCl 0 ml @ 0 mls/hr UD IV 01/18/25 09:00 Sodium Chloride 1,000 ml @ 120 mls/hr Q8H20M IV 01/18/25 09:00 01/18/25 23:30 120 MLS/HR Acetaminophen/ Hydrocodone Bitart 1 tab Q4HP PRN PO 01/18/25 09:00 01/19/25 04:53 1 TAB Ondansetron HCl 4 mg Q4HP PRN IV 01/18/25 09:00 01/18/25 20:43 4 MG Acetaminophen 650 mg Q6HP PRN PO 01/18/25 09:00 Nitroglycerin 0.4 mg Q5MINP PRN SL 01/18/25 09:00 Morphine Sulfate 2 mg Q30M PRN IV 01/18/25 09:00 Cholecalciferol 5,000 unit DAILY PO 01/18/25 10:28 01/19/25 10:03 5,000 UNIT Patient Own Medication 1 gm DAILY PO 01/18/25 10:00 01/18/25 10:00 1 GM Atorvastatin Calcium 20 mg DAILY PO 01/18/25 10:00 01/19/25 10:01 20 MG Chlorthalidone 25 mg DAILY PO 01/18/25 10:00 01/19/25 10:01 25 MG Losartan Potassium 50 mg DAILY PO 01/18/25 10:00 01/19/25 10:01 50 MG Amlodipine Besylate 10 mg DAILY PO 01/18/25 10:32 01/19/25 10:00 10 MG Saccharomyces Boulardii 250 mg DAILY PO 01/18/25 10:00 01/19/25 10:06 250 MG Pantoprazole Sodium 40 mg DAILY IV 01/18/25 10:00 01/19/25 09:58 40 MG Gabapentin 300 mg DAILY PO 01/18/25 10:00 01/19/25 10:02 300 MG Hydralazine HCl 10 mg Q6HP PRN IV 01/18/25 10:45 01/18/25 23:24 10 MG Morphine Sulfate 2 mg Q4HPRN PRN IV 01/18/25 11:30 01/18/25 22:25 2 MG Piperacillin Sod/ Tazobactam Sod 100 ml @ 25 mls/hr Q6H IV 01/19/25 01:00 01/19/25 07:06 25 MLS/HR Vancomycin HCl 200 ml @ 200 mls/hr Q8H IV 01/18/25 22:00 01/19/25 05:26 200 MLS/HR Laboratory Results Laboratory Tests 01/19/25 04:38 Chemistry Test 01/19/25 04:38 Albumin 5.6 g/dL (3.2-4.8) H Calcium Level 10.6 mg/dL (8.7-10.4) H Total Protein 8.7 g/dL (5.7-8.2) H LFT Test 01/19/25 04:38 Alanine Aminotransferase (ALT) 51 U/L (7-40) H Alkaline Phosphatase 71 U/L (46-116) Aspartate Amino Transferase (AST) 30 U/L (13-40) Total Bilirubin 0.9 mg/dL (0.2-1.0) Urinalysis Test 01/18/25 08:30 Urine Color Colorless (Yellow) Urine Clarity Clear (Clear) Urine pH 8.0 (5.0-9.0) Urine Specific [place] 1.013 (1.001-1.035) Urine Protein Negative (Negative) Urine Ketones Negative (Negative) Urine Blood Negative /uL (Negative) Urine Nitrite Negative (Negative) Urine Bilirubin Negative (Negative) Urine Urobilinogen Normal mg/dL (Negative) Urine Leukocyte Esterase Negative /uL (Negative) Urine RBC <1 /hpf (0 - 3) Urine Microscopic WBC < 1 /HPF (0-3) Urine Squamous Epithelial Cells None seen /hpf (<5) Urine Bacteria None seen /hpf (None Seen) Urine Glucose Normal mg/dL (Normal) Microbiology Microbiology Date/Time Source Procedure Growth Status 01/18/25 10:04 Blood Blood Culture - Preliminary NO GROWTH AFTER 24 HOURS OF INCUBATION. Resulted Assessment/Plan Assessment/Plan Intractable nausea and vomiting Abdominal pain Diverticulosis Sepsis Hypokalemia Hypercalcemia Dehydration Leukocytosis due to diverticulitis or other abdominal etiology Hypertension Mixed hyperlipidemia Plan IV fluids normal saline IV antibiotics Zosyn and vancomycin GI consult Replace potassium Monitor closely Full code Advance directives discussed for 17 minutes Plan discussed with: Patient Date of Service: Jan 19, 2025 Billing Provider: EDNA GILBERT MD Common Visit Codes: [id number] INP/OBS CARE(HIGH) Secondary Visit Codes: [id number] CARE PLAN 30 MINUTES EDNA GILBERT MD Jan 19, 2025 10:59
[2025-01-19] MEDS: POTASSIUM CHL 20 Meq TABLET PO ONE (12:39)
[2025-01-19] MEDS: VANCOMYCIN 1.25GM/250ML 250 ML IV SCH (16:01)
[2025-01-19] MEDS: ACETAMINOPHEN 325 MG TAB PO PRN (20:16)
--- NOTE | 2025-01-19 20:53 | DVHINCON2 ---
Date of service: Jan 19, [address] 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 he had eaten some pizza the day before the symptoms started Denied any travel or any other fever or any other unusual infections but has got increased white count now even though on admission the white count is normal Denied any hematemesis or melena no history of any exposure to COVID or other infections No history of any unusual food ingestion as except for the pizza Patient had a colonoscopy about a year ago as well as an EGD which were unremarkable as per the patient Past Medical History History of diverticulitis Past Surgical History None Family History: Diabetes mellitus G8 MOTHER FHx: bipolar disorder G8 MOTHER FHx: seizures G8 MOTHER Hypertension G8 MOTHER Family History Unremarkable Social History Denies smoking or drinking Allergies: Coded Allergies: Ibuprofen (Verified Allergy, Unknown, 11/15/21) Latex (Verified Allergy, Unknown, 11/15/21) Home Meds Active Scripts Pantoprazole Sodium Sesquihydr (Pantoprazole Sodium) 40 Mg Tab, 40 MG PO DAILY for 30 Days, #30 TAB Prov:DANNA TORRES RESIDENT 12/09/23 Acetaminophen (Acetaminophen) 325 Mg Tab, 650 MG PO Q6HP PRN for 30 Days, #240 TAB Prov:DANNA TORRES RESIDENT 12/09/23 Reported Medications Tramadol Hcl (Tramadol Hcl) 50 Mg Tab, 50 MG PO PRN, TAB 01/19/25 Amlodipine Besylate (Amlodipine Besylate) 10 Mg Tab, 1 TAB PO DAILY 01/18/25 Gabapentin (Gabapentin) 300 Mg Cap, 1 CAP PO DAILY 01/18/25 Atorvastatin Calcium (ATORVASTATIN CALCIUM) 20 Mg Tab, 1 TAB PO DAILY 01/18/25 [id number] Ethyl Esters (Uduzm-6-Dwgh Ethyl Esters) 1 Gm Cap, 1 GM PO DAILY, CAP 07/01/24 Cholecalciferol (VITAMIN D3) 5,000 Unit Cap, 1 CAP PO DAILY 12/08/23 Current Medications Current Medications Medications (Trade) Dose Ordered Sig/Darshana Route PRN Reason Start Time Stop Time Status Last Admin Piperacillin Sod/ Tazobactam Sod 100 ml @ 25 mls/hr Q6H IV 01/19/25 01:00 01/19/25 20:08 Vancomycin HCl 200 ml @ 200 mls/hr Q8H IV 01/18/25 22:00 01/19/25 13:54 DC 01/19/25 05:26 Vancomycin HCl 250 ml @ 200 mls/hr Q8H IV 01/19/25 14:00 01/19/25 16:01 Review of Systems Non contributory Vital Signs Vital Signs Date Time Temp Pulse Resp B/P (MAP) Pulse Ox O2 Delivery O2 Flow Rate FiO2 01/19/25 16:35 98.4 78 16 153/109 (124) 98 98.4 01/19/25 08:00 Room Air* 0 97 21 Physical Exam Moderately built and nourished slightly on the obese side no acute distress Lungs are clear Cardiovascular unremarkable Abdomen is soft nontender had minimally in the periumbilical area no rigidity no guarding Bowel sounds normal Extremities no edema no varicosities Neuro grossly intact Labs/Diagnostic Data Labs Test 01/19/25 13:00 01/19/25 04:38 01/18/25 12:04 01/18/25 08:30 Range/Units Vancomycin Level Trough 9.7 5-10 ug/mL White Blood Count 22.4 #H 4.4-10.8 10^3/uL Red Blood Count 5.82 4.5-5.90 10^6/uL Hemoglobin 17.7 H 13.5-17.5 g/dL Hematocrit 50.7 # 41.0-53.0 % Mean Corpuscular Volume 87.1 80.0-100.0 fL Mean Corpuscular Hemoglobin 30.4 28.0-32.0 pg Mean Corpuscular Hemoglobin Concent 34.9 32.0-36.0 g/dL Red Cell Distribution Width 14.0 11.8-14.3 % Platelet Count 281 140-450 10^3/uL Mean Platelet Volume 9.4 6.9-10.8 fL Neutrophils (%) (Auto) 82.0 H 37.0-80.0 % Lymphocytes (%) (Auto) 11.6 10.0-50.0 % Monocytes (%) (Auto) 6.1 0.0-12.0 % Eosinophils (%) (Auto) 0.0 0.0-7.0 % Basophils (%) (Auto) 0.3 0.0-2.0 % Neutrophils # (Auto) 18.4 H 1.6-8.6 10 ^3/uL Lymphocytes # (Auto) 2.6 0.4-5.4 10 ^3/uL Monocytes # (Auto) 1.4 H 0-1.3 10 ^3/uL Eosinophils # (Auto) 0 0-0.8 10 ^3/uL Basophils # (Auto) 0.1 0-0.2 10 ^3/uL Nucleated Red Blood Cells 0.1 % Sodium Level 138 136-145 mmol/L Potassium Level 3.4 L 3.5-5.1 mmol/L Chloride Level 100 # 98-107 mmol/L Carbon Dioxide Level 25 20-31 mmol/L Anion Gap 13 5-15 Blood Urea Nitrogen 9 9-23 mg/dL Creatinine 1.20 0.700-1.30 mg/dL Glomerular Filtration Rate Calc 78 >90 mL/min BUN/Creatinine Ratio 7.5 L 10.0-20.0 Serum Glucose 117 H 74-106 mg/dL Calcium Level 10.6 H 8.7-10.4 mg/dL Total Bilirubin 0.9 0.2-1.0 mg/dL Aspartate Amino Transferase (AST) 30 13-40 U/L Alanine Aminotransferase (ALT) 51 H 7-40 U/L Alkaline Phosphatase 71 46-116 U/L Total Protein 8.7 H 5.7-8.2 g/dL Albumin 5.6 H 3.2-4.8 g/dL Lactic Acid Level 2.6 *H 0.4-2.0 mmol/L Urine Color Colorless Yellow Urine Clarity Clear Clear Urine pH 8.0 5.0-9.0 Urine Specific [place] 1.013 1.001-1.035 Urine Protein Negative Negative Urine Ketones Negative Negative Urine Blood Negative Negative /uL Urine Nitrite Negative Negative Urine Bilirubin Negative Negative Urine Urobilinogen Normal Negative mg/dL Urine Leukocyte Esterase Negative Negative /uL Urine RBC <1 0 - 3 /hpf Urine Microscopic WBC < 1 0-3 /HPF Urine Squamous Epithelial Cells None seen <5 /hpf Urine Bacteria None seen None Seen /hpf Urine Glucose Normal Normal mg/dL Urine Opiates Screen Neg NEGATIVE Urine Fentanyl Screen Neg NEGATIVE Urine Barbiturates Screen Neg NEGATIVE Urine Phencyclidine Screen Neg NEGATIVE Urine Amphetamines Screen Neg NEGATIVE Urine Benzodiazepines Screen Neg NEGATIVE Urine Cocaine Screen Neg NEGATIVE Urine Cannabinoids Screen Pos NEGATIVE Microbiology Date/Time Source Procedure Growth Status 01/18/25 10:04 Blood Blood Culture - Preliminary NO GROWTH AFTER 24 HOURS OF INCUBATION. Resulted Assessment 39-year-old male with complaints of abdominal pain in the epigastrium as well as periumbilical area with nausea and vomiting history of diverticulitis in the past denied any unusual food ingestion except for some pizza no history of any travel or any fever or other GI symptoms like hematemesis or melena or severe diarrhea Physical exam unremarkable except for some white count is increased Patient is on antibiotics and slightly better Clinical impression Possible gastroenteritis other possibility of pancreatitis diverticulitis or other pathology can not be excluded Plan/Recommendation will recommend to continue antibiotic We will check stool studies for C&S and O&P If symptoms persist may need further evaluation Thank you Dr. Perry Plan discussed with: Patient HAYLEY PERRY MD Jan 19, 2025 20:53
[2025-01-20 01:00] VITALS: BP 123/82; PULSE 90; RESP 18; TEMP 97.4; O2SAT 96
[2025-01-20 05:00] VITALS: BP 119/93; PULSE 94; RESP 18; TEMP 98.2; O2SAT 92
[2025-01-20 06:49] LABS: Basophils # (auto) 0 10 ^3/uL (0-0.2); Basophils % (auto) 0.3 % (0.0-2.0); Eosinophils # (auto) 0 10 ^3/uL (0-0.8); Eosinophils % (auto) 0.3 % (0.0-7.0); Hematocrit 50.1 % (41.0-53.0); Hemoglobin 17.5 g/dL (13.5-17.5); Lymphocytes # (auto) 3.8 10 ^3/uL (0.4-5.4); Lymphocytes % (auto) 24.2 % (10.0-50.0); Mean Corpuscular Hemoglobin 30.1 pg (28.0-32.0); Mean Corpuscular Volume 86.1 fL (80.0-100.0); Monocytes # (auto) 1.5 10 ^3/uL (0-1.3); Monocytes % (auto) 9.1 % (0.0-12.0); Neutrophils # (auto) 10.5 10 ^3/uL (1.6-8.6); Neutrophils % (auto) 66.1 % (37.0-80.0); Nucleated Red Blood Cells % 0.1 %; Platelet Count (auto) 243 10^3/uL (140-450); Red Blood Cells 5.82 10^6/uL (4.5-5.90); White Blood Cell 15.9 10^3/uL (4.4-10.8)
[2025-01-20 07:14] LABS: Albumin 4.8 g/dL (3.2-4.8); Alkaline Phosphatase 57 U/L (46-116); Anion Gap 10 (5-15); BUN/Creatinine Ratio 9.3 (10.0-20.0); Blood Urea Nitrogen 11 mg/dL (9-23); Calcium 10.1 mg/dL (8.7-10.4); Carbon Dioxide 22 mmol/L (20-31); Chloride 104 mmol/L (98-107); Magnesium 2.1 mg/dL (1.6-2.6); Sodium 136 mmol/L (136-145); Total Protein 7.5 g/dL (5.7-8.2)
[2025-01-20 07:21] LABS: Alanine Aminotransferase 45 U/L (7-40); Aspartate Aminotransferase 42 U/L (13-40); Glucose 107 mg/dL (74-106); Potassium 3.3 mmol/L (3.5-5.1)
[2025-01-20 09:00] VITALS: BP 122/92; PULSE 68; RESP 18; TEMP 97.6; O2SAT 97
[2025-01-20] MEDS: POTASSIUM CHL 20 Meq TABLET PO ONE (09:15)
[2025-01-20] MEDS: MAALOX PLUS or MAALOX 30 ML PO ONE (10:09)
[2025-01-20] MEDS: OMNIPAQUE 12mg/ml 500ml ORAL SOLUTION PO ONE (11:53)
[2025-01-20 13:00] VITALS: BP 167/125; PULSE 110; RESP 19; TEMP 98; O2SAT 98
--- NOTE | 2025-01-20 14:19 | DVHPN2 ---
Progress Note - Dictate Date Seen: Jan 20, 2025 Medical Necessity Reason Pt with a Central, PICC or Fol: No Subjective Patient has some abdominal pain but but better hematemesis or melena vital signs Vital Sign Date Time Temp Pulse Resp B/P (MAP) Pulse Ox O2 Delivery O2 Flow Rate FiO2 01/20/25 13:00 98.0 110 19 167/125 (139) 98 98.0 01/20/25 08:00 Room Air* 0 97 21 Total Intake and Output 01/19/25 01/19/25 01/20/25 15:00 23:00 07:00 Intake Total 500 ml Balance 500 ml medications Current Medications Medications Dose Ordered Sig/Darshana Route Start Time Stop Time Status Last Admin Dose Admin Vancomycin HCl 0 ml @ 0 mls/hr UD IV 01/18/25 09:00 Sodium Chloride 1,000 ml @ 120 mls/hr Q8H20M IV 01/18/25 09:00 01/19/25 10:00 120 MLS/HR Acetaminophen/ Hydrocodone Bitart 1 tab Q4HP PRN PO 01/18/25 09:00 01/19/25 12:31 1 TAB Ondansetron HCl 4 mg Q4HP PRN IV 01/18/25 09:00 01/20/25 12:11 4 MG Acetaminophen 650 mg Q6HP PRN PO 01/18/25 09:00 01/20/25 07:17 650 MG Nitroglycerin 0.4 mg Q5MINP PRN SL 01/18/25 09:00 Morphine Sulfate 2 mg Q30M PRN IV 01/18/25 09:00 Cholecalciferol 5,000 unit DAILY PO 01/18/25 10:28 01/19/25 10:03 5,000 UNIT Patient Own Medication 1 gm DAILY PO 01/18/25 10:00 01/18/25 10:00 1 GM Atorvastatin Calcium 20 mg DAILY PO 01/18/25 10:00 01/19/25 10:01 20 MG Chlorthalidone 25 mg DAILY PO 01/18/25 10:00 01/19/25 10:01 25 MG Losartan Potassium 50 mg DAILY PO 01/18/25 10:00 01/19/25 10:01 50 MG Amlodipine Besylate 10 mg DAILY PO 01/18/25 10:32 01/19/25 10:00 10 MG Saccharomyces Boulardii 250 mg DAILY PO 01/18/25 10:00 01/19/25 10:06 250 MG Pantoprazole Sodium 40 mg DAILY IV 01/18/25 10:00 01/20/25 10:40 40 MG Gabapentin 300 mg DAILY PO 01/18/25 10:00 01/19/25 10:02 300 MG Hydralazine HCl 10 mg Q6HP PRN IV 01/18/25 10:45 01/18/25 23:24 10 MG Morphine Sulfate 2 mg Q4HPRN PRN IV 01/18/25 11:30 01/20/25 12:01 2 MG Piperacillin Sod/ Tazobactam Sod 100 ml @ 25 mls/hr Q6H IV 01/19/25 01:00 01/20/25 06:53 25 MLS/HR Vancomycin HCl 250 ml @ 200 mls/hr Q8H IV 01/19/25 14:00 01/20/25 06:53 200 MLS/HR objective Abdomen is soft mild tenderness in the periumbilical area no rigidity no guarding laboratory and microbiology Laboratory Tests 01/20/25 06:26 Test 01/20/25 06:26 Range/Units Serum Glucose 107 H 74-106 mg/dL Assessment/Plan 39-year-old male with complaints of abdominal pain in the epigastrium as well as periumbilical area with nausea and vomiting history of diverticulitis in the past denied any unusual food ingestion except for some pizza no history of any travel or any fever or other GI symptoms like hematemesis or melena or severe diarrhea Physical exam unremarkable except for some white count is increased Patient is on antibiotics and slightly better White count is better Clinical impression Probable gastroenteritis feeling better Plans Continue the same regimen and see the response Thank you Dr. Perry Plan discussed with: Patient HAYLEY PERRY MD Jan 20, 2025 14:19
--- NOTE | 2025-01-20 15:12 | DVHPN2 ---
Subjective He was having nausea and vomiting and abdominal pain since this morning The abdominal pain is in the epigastric area His lower abdomen is soft We tried to give him Mylanta however he vomited again He was given morphine and Zofran and Protonix IV but it did not help We tried to do a repeat CT scan of the abdomen and pelvis with IV and p.o. contrast but he could not tolerated due to vomiting Changes from previous H/P or p: Changes Gastrointestinal: Nausea, Vomiting, Abdominal Pain Objective Vitals Vital Signs Date Time Temp Pulse Resp B/P (MAP) Pulse Ox O2 Delivery O2 Flow Rate FiO2 01/20/25 13:00 98.0 110 19 167/125 (139) 98 98.0 01/20/25 08:00 Room Air* 0 97 21 Intake/Output Intake and Output 01/20/25 07:00 Intake Total 500 ml Balance 500 ml Intake Oral 500 ml # Voids 6 # Bowel Movements 3 General Appearance: Alert, Oriented X3, Cooperative, No acute distress Lungs: Clear to auscultation, Normal air movement Cardiovascular: Regular rate, Normal S1, Normal S2 Abdomen: Normal bowel sounds, Soft, No tenderness Extremities: No edema Medications Current Medications Medications Dose Ordered Sig/Darshana Route Start Time Stop Time Status Last Admin Dose Admin Vancomycin HCl 0 ml @ 0 mls/hr UD IV 01/18/25 09:00 Sodium Chloride 1,000 ml @ 120 mls/hr Q8H20M IV 01/18/25 09:00 01/19/25 10:00 120 MLS/HR Acetaminophen/ Hydrocodone Bitart 1 tab Q4HP PRN PO 01/18/25 09:00 01/19/25 12:31 1 TAB Ondansetron HCl 4 mg Q4HP PRN IV 01/18/25 09:00 01/20/25 12:11 4 MG Acetaminophen 650 mg Q6HP PRN PO 01/18/25 09:00 01/20/25 07:17 650 MG Nitroglycerin 0.4 mg Q5MINP PRN SL 01/18/25 09:00 Morphine Sulfate 2 mg Q30M PRN IV 01/18/25 09:00 Cholecalciferol 5,000 unit DAILY PO 01/18/25 10:28 01/19/25 10:03 5,000 UNIT Patient Own Medication 1 gm DAILY PO 01/18/25 10:00 01/18/25 10:00 1 GM Atorvastatin Calcium 20 mg DAILY PO 01/18/25 10:00 01/19/25 10:01 20 MG Chlorthalidone 25 mg DAILY PO 01/18/25 10:00 01/19/25 10:01 25 MG Losartan Potassium 50 mg DAILY PO 01/18/25 10:00 01/19/25 10:01 50 MG Amlodipine Besylate 10 mg DAILY PO 01/18/25 10:32 01/19/25 10:00 10 MG Saccharomyces Boulardii 250 mg DAILY PO 01/18/25 10:00 01/19/25 10:06 250 MG Pantoprazole Sodium 40 mg DAILY IV 01/18/25 10:00 01/20/25 10:40 40 MG Gabapentin 300 mg DAILY PO 01/18/25 10:00 01/19/25 10:02 300 MG Hydralazine HCl 10 mg Q6HP PRN IV 01/18/25 10:45 01/18/25 23:24 10 MG Morphine Sulfate 2 mg Q4HPRN PRN IV 01/18/25 11:30 01/20/25 12:01 2 MG Piperacillin Sod/ Tazobactam Sod 100 ml @ 25 mls/hr Q6H IV 01/19/25 01:00 01/20/25 06:53 25 MLS/HR Vancomycin HCl 250 ml @ 200 mls/hr Q8H IV 01/19/25 14:00 01/20/25 06:53 200 MLS/HR Laboratory Results Laboratory Tests 01/20/25 06:26 Chemistry Test 01/20/25 06:26 Albumin 4.8 g/dL (3.2-4.8) Calcium Level 10.1 mg/dL (8.7-10.4) Magnesium Level 2.1 mg/dL (1.6-2.6) Total Protein 7.5 g/dL (5.7-8.2) LFT Test 01/20/25 06:26 Alanine Aminotransferase (ALT) 45 U/L (7-40) H Alkaline Phosphatase 57 U/L (46-116) Aspartate Amino Transferase (AST) 42 U/L (13-40) H Total Bilirubin 1.0 mg/dL (0.2-1.0) Urinalysis Test 01/18/25 08:30 Urine Color Colorless (Yellow) Urine Clarity Clear (Clear) Urine pH 8.0 (5.0-9.0) Urine Specific [place] 1.013 (1.001-1.035) Urine Protein Negative (Negative) Urine Ketones Negative (Negative) Urine Blood Negative /uL (Negative) Urine Nitrite Negative (Negative) Urine Bilirubin Negative (Negative) Urine Urobilinogen Normal mg/dL (Negative) Urine Leukocyte Esterase Negative /uL (Negative) Urine RBC <1 /hpf (0 - 3) Urine Microscopic WBC < 1 /HPF (0-3) Urine Squamous Epithelial Cells None seen /hpf (<5) Urine Bacteria None seen /hpf (None Seen) Urine Glucose Normal mg/dL (Normal) Microbiology Microbiology Date/Time Source Procedure Growth Status 01/18/25 10:04 Blood Blood Culture - Preliminary NO GROWTH AFTER 48 HOURS OF INCUBATION. Resulted Assessment/Plan Assessment/Plan Intractable nausea and vomiting Abdominal pain Diverticulosis Sepsis Hypokalemia Hypercalcemia Dehydration Leukocytosis due to diverticulitis or other abdominal etiology Hypertension Mixed hyperlipidemia Plan IV fluids normal saline IV antibiotics Zosyn and vancomycin GI consult Replace potassium Monitor closely Full code Advance directives discussed for 17 minutes 01/20/2025: Abdominal pain Intractable nausea and vomiting Leukocytosis Diverticulosis Hypokalemia Keep NPO We will do a CT scan of the abdomen and pelvis with the p.o. and IV contrast when he is able to tolerate the test Replace potassium Continue IV fluids IV antibiotics Zosyn and vancomycin IV Protonix Zofran as needed Monitor closely GI is following Plan discussed with: Patient My Orders Orders - EDNA GILBERT MD Procedure Category Date Status Time Npo (Nothing By DIET 01/20/25 Transmitted Mouth) Diet Lunch Date of Service: Jan 20, 2025 Billing Provider: EDNA GILBERT MD Common Visit Codes: [id number] INP/OBS CARE(HIGH) EDNA GILBERT MD Jan 20, 2025 15:12
[2025-01-20 16:50] VITALS: BP 162/122; PULSE 108; RESP 17; TEMP 98.5; O2SAT 100
[2025-01-20] MEDS: METOCLOPRAMIDE HCL 5MG/ml INJ 2ml VIAL IV ONE (17:31)
[2025-01-20 21:00] VITALS: BP 149/79; PULSE 103; RESP 19; TEMP 98.2; O2SAT 98
[2025-01-20] MEDS: METOCLOPRAMIDE HCL 5MG/ml INJ 2ml VIAL IV SCH (22:03)
[2025-01-21 01:00] VITALS: BP 143/85; PULSE 85; RESP 18; TEMP 98; O2SAT 98
[2025-01-21 05:00] VITALS: BP 115/64; PULSE 91; RESP 18; TEMP 97.9; O2SAT 97
[2025-01-21 06:41] LABS: Basophils # (auto) 0.1 10 ^3/uL (0-0.2); Basophils % (auto) 0.4 % (0.0-2.0); Eosinophils # (auto) 0 10 ^3/uL (0-0.8); Eosinophils % (auto) 0.2 % (0.0-7.0); Hemoglobin 16.3 g/dL (13.5-17.5); Lymphocytes # (auto) 3.9 10 ^3/uL (0.4-5.4); Lymphocytes % (auto) 25.1 % (10.0-50.0); Mean Corpuscular Hemoglobin 29.9 pg (28.0-32.0); Mean Corpuscular Hgb Conc. 34.6 g/dL (32.0-36.0); Mean Corpuscular Volume 86.3 fL (80.0-100.0); Monocytes # (auto) 1.5 10 ^3/uL (0-1.3); Monocytes % (auto) 9.7 % (0.0-12.0); Neutrophils # (auto) 9.9 10 ^3/uL (1.6-8.6); Neutrophils % (auto) 64.6 % (37.0-80.0); Nucleated Red Blood Cells % 0.1 %; Platelet Count (auto) 208 10^3/uL (140-450); Red Blood Cells 5.45 10^6/uL (4.5-5.90); White Blood Cell 15.4 10^3/uL (4.4-10.8)
[2025-01-21 06:54] LABS: Alanine Aminotransferase 47 U/L (7-40); Albumin 4.5 g/dL (3.2-4.8); Alkaline Phosphatase 51 U/L (46-116); Anion Gap 11 (5-15); Aspartate Aminotransferase 40 U/L (13-40); BUN/Creatinine Ratio 11.1 (10.0-20.0); Bilirubin, Total 1.1 mg/dL (0.2-1.0); Blood Urea Nitrogen 13 mg/dL (9-23); Calcium 9.6 mg/dL (8.7-10.4); Carbon Dioxide 23 mmol/L (20-31); Chloride 105 mmol/L (98-107); Glucose 102 mg/dL (74-106); Magnesium 2.3 mg/dL (1.6-2.6); Sodium 139 mmol/L (136-145); Total Protein 6.9 g/dL (5.7-8.2)
[2025-01-21] MEDS: POTASSIUM CHL 20 Meq TABLET PO ONE (07:37)
[2025-01-21] MEDS: POTASSIUM CHL 20MEQ/100ML 100 ML IV ONE (08:00)
[2025-01-21 09:00] VITALS: BP 139/86; PULSE 74; RESP 18; TEMP 98.1; O2SAT 99
[2025-01-21] MEDS: OMNIPAQUE 12mg/ml 500ml ORAL SOLUTION PO ONE (10:05)
[2025-01-21] MEDS: IOHEXOL 300 MG/ML 100ML BOTTLE IJ ONE (12:01)
--- NOTE | 2025-01-21 12:47 | DVH ---
CT CT ABD PELVIS W CON-ORAL IV INDICATION: abd pain EXAM DATE: 01/21/2025 12:12 PM COMPARISON: None RADIATION DOSE: CTDIvol: 27.69 mGy, DLP: 1675.13 mGy*cm PROCEDURE: Helical CT images were obtained of the abdomen and pelvis with IV contrast Sagittal and co radha reconstructions are provided. ORAL CONTRAST: None. ADDITIONAL IMAGES / REFORMATS: None All CT s cans at this medical facility are performed using dose modulation techniques as appropriate to a perf ormed exam including the following: Automated exposure control was utilized; adjustment of the MA and /or KV according to patient size; and use of iterative reconstruction technique. FINDINGS: LUNG BASE: Normal. LIVER: Normal. GALLBLADDER AND BILIARY TREE: No calcified gallstones. Normal caliber wall. No intra- or extrahepatic biliary ductal dilation. PANCREAS: Normal. SPLEEN: Normal. BOWEL: Moderate colonic diverticulosis. Oral contrast material reaches the colon, no bowel obstructio n is seen. Normal appendix. ADRENALS: Normal. KIDNEYS AND URETER: Normal. BLADDER: Normal. REPRODUCTIVE ORGANS: Normal. LYMPH NODES:No lymphadenopathy. PERITONEUM: No ascites or free air. No other fluid collection. VESSELS: Scattered atherosclerotic calcifications are noted. RETROPERITONEUM: Normal. ABDOMINAL WALL: Normal. BONES: Scattered osseous degenerative changes are noted. IMPRESSION: No acute intraabdominal abnormality. Moderate colonic diverticulosis. Oral contrast material reaches the colon, no bowel obstruction is se en.
[2025-01-21 13:00] VITALS: BP 167/99; PULSE 70; RESP 18; TEMP 98.2; O2SAT 99
--- NOTE | 2025-01-21 13:09 | DVHPN2 ---
Subjective He is feeling much better now No abdominal pain no nausea no vomiting Repeat CT scan of the abdomen and pelvis was negative Changes from previous H/P or p: Changes Gastrointestinal: Nausea, Vomiting, Abdominal Pain Objective Vitals Vital Signs Date Time Temp Pulse Resp B/P (MAP) Pulse Ox O2 Delivery O2 Flow Rate FiO2 01/21/25 09:00 98.1 74 18 139/86 (103) 99 98.1 01/21/25 08:00 Room Air* 0 21 Intake/Output Intake and Output 01/21/25 07:00 Intake Total 825 ml Balance 825 ml IV Total 825 ml General Appearance: Alert, Oriented X3, Cooperative, No acute distress Lungs: Clear to auscultation, Normal air movement Cardiovascular: Regular rate, Normal S1, Normal S2 Abdomen: Normal bowel sounds, Soft, No tenderness Extremities: No edema Medications Current Medications Medications Dose Ordered Sig/Darshana Route Start Time Stop Time Status Last Admin Dose Admin Vancomycin HCl 0 ml @ 0 mls/hr UD IV 01/18/25 09:00 Sodium Chloride 1,000 ml @ 120 mls/hr Q8H20M IV 01/18/25 09:00 01/21/25 12:14 120 MLS/HR Acetaminophen/ Hydrocodone Bitart 1 tab Q4HP PRN PO 01/18/25 09:00 01/19/25 12:31 1 TAB Ondansetron HCl 4 mg Q4HP PRN IV 01/18/25 09:00 01/20/25 12:11 4 MG Acetaminophen 650 mg Q6HP PRN PO 01/18/25 09:00 01/20/25 07:17 650 MG Nitroglycerin 0.4 mg Q5MINP PRN SL 01/18/25 09:00 Morphine Sulfate 2 mg Q30M PRN IV 01/18/25 09:00 Cholecalciferol 5,000 unit DAILY PO 01/18/25 10:28 01/19/25 10:03 5,000 UNIT Patient Own Medication 1 gm DAILY PO 01/18/25 10:00 01/18/25 10:00 1 GM Atorvastatin Calcium 20 mg DAILY PO 01/18/25 10:00 01/19/25 10:01 20 MG Chlorthalidone 25 mg DAILY PO 01/18/25 10:00 01/19/25 10:01 25 MG Losartan Potassium 50 mg DAILY PO 01/18/25 10:00 01/19/25 10:01 50 MG Amlodipine Besylate 10 mg DAILY PO 01/18/25 10:32 01/19/25 10:00 10 MG Saccharomyces Boulardii 250 mg DAILY PO 01/18/25 10:00 01/19/25 10:06 250 MG Pantoprazole Sodium 40 mg DAILY IV 01/18/25 10:00 01/21/25 08:34 40 MG Gabapentin 300 mg DAILY PO 01/18/25 10:00 01/19/25 10:02 300 MG Hydralazine HCl 10 mg Q6HP PRN IV 01/18/25 10:45 01/18/25 23:24 10 MG Morphine Sulfate 2 mg Q4HPRN PRN IV 01/18/25 11:30 01/20/25 17:50 2 MG Piperacillin Sod/ Tazobactam Sod 100 ml @ 25 mls/hr Q6H IV 01/19/25 01:00 01/21/25 12:33 25 MLS/HR Vancomycin HCl 250 ml @ 200 mls/hr Q8H IV 01/19/25 14:00 01/21/25 05:42 200 MLS/HR Metoclopramide HCl 10 mg Q8HR IV 01/20/25 22:00 01/21/25 05:42 10 MG Laboratory Results Laboratory Tests 01/21/25 05:39 Chemistry Test 01/21/25 05:39 Albumin 4.5 g/dL (3.2-4.8) Calcium Level 9.6 mg/dL (8.7-10.4) Magnesium Level 2.3 mg/dL (1.6-2.6) Total Protein 6.9 g/dL (5.7-8.2) LFT Test 01/21/25 05:39 Alanine Aminotransferase (ALT) 47 U/L (7-40) H Alkaline Phosphatase 51 U/L (46-116) Aspartate Amino Transferase (AST) 40 U/L (13-40) Total Bilirubin 1.1 mg/dL (0.2-1.0) H Urinalysis Test 01/18/25 08:30 Urine Color Colorless (Yellow) Urine Clarity Clear (Clear) Urine pH 8.0 (5.0-9.0) Urine Specific [place] 1.013 (1.001-1.035) Urine Protein Negative (Negative) Urine Ketones Negative (Negative) Urine Blood Negative /uL (Negative) Urine Nitrite Negative (Negative) Urine Bilirubin Negative (Negative) Urine Urobilinogen Normal mg/dL (Negative) Urine Leukocyte Esterase Negative /uL (Negative) Urine RBC <1 /hpf (0 - 3) Urine Microscopic WBC < 1 /HPF (0-3) Urine Squamous Epithelial Cells None seen /hpf (<5) Urine Bacteria None seen /hpf (None Seen) Urine Glucose Normal mg/dL (Normal) Microbiology Microbiology Date/Time Source Procedure Growth Status 01/18/25 10:04 Blood Blood Culture - Preliminary NO GROWTH AFTER 72 HOURS OF INCUBATION. Resulted Assessment/Plan Assessment/Plan Intractable nausea and vomiting Abdominal pain Diverticulosis Sepsis Hypokalemia Hypercalcemia Dehydration Leukocytosis due to diverticulitis or other abdominal etiology Hypertension Mixed hyperlipidemia Plan IV fluids normal saline IV antibiotics Zosyn and vancomycin GI consult Replace potassium Monitor closely Full code Advance directives discussed for 17 minutes 01/20/2025: Abdominal pain Intractable nausea and vomiting Leukocytosis Diverticulosis Hypokalemia Keep NPO We will do a CT scan of the abdomen and pelvis with the p.o. and IV contrast when he is able to tolerate the test Replace potassium Continue IV fluids IV antibiotics Zosyn and vancomycin IV Protonix Zofran as needed Monitor closely GI is following 01/21/2025: Repeat CT scan of the abdomen and pelvis was negative Continue the current management Advance diet slowly as tolerated Continue IV antibiotics Hypokalemia: Replace Plan discussed with: Patient My Orders Orders - EDNA GILBERT MD Procedure Category Date Status Time Metoclopramide PHA 01/20/25 In Process Injection (Reglan 22:00 Clear Liq Diet DIET 01/21/[address] Abd Pelvis W CT 01/21/25 Resulted Con-Oral & Iv 09:54 Date of Service: Jan 21, 2025 Billing Provider: EDNA GILBERT MD Common Visit Codes: [id number] INP/OBS CARE(HIGH) EDNA GILBERT MD Jan 21, 2025 13:09
--- NOTE | 2025-01-21 16:26 | DVHPN2 ---
Progress Note - Dictate Date Seen: Jan 21, 2025 Medical Necessity Reason Pt with a Central, PICC or Fol: No Subjective Patient feeling better with much better with the abdominal pain and nausea Tolerated diet well Repeat CT scan of the abdomen unremarkable vital signs Vital Sign Date Time Temp Pulse Resp B/P (MAP) Pulse Ox O2 Delivery O2 Flow Rate FiO2 01/21/25 13:00 98.2 70 18 167/99 (121) 99 98.2 01/21/25 08:00 Room Air* 0 21 Total Intake and Output 01/20/25 01/20/25 01/21/25 15:00 23:00 07:00 Intake Total 825 ml Balance 825 ml medications Current Medications Medications Dose Ordered Sig/Darshana Route Start Time Stop Time Status Last Admin Dose Admin Vancomycin HCl 0 ml @ 0 mls/hr UD IV 01/18/25 09:00 Acetaminophen/ Hydrocodone Bitart 1 tab Q4HP PRN PO 01/18/25 09:00 01/19/25 12:31 1 TAB Ondansetron HCl 4 mg Q4HP PRN IV 01/18/25 09:00 01/20/25 12:11 4 MG Acetaminophen 650 mg Q6HP PRN PO 01/18/25 09:00 01/21/25 15:54 650 MG Nitroglycerin 0.4 mg Q5MINP PRN SL 01/18/25 09:00 Morphine Sulfate 2 mg Q30M PRN IV 01/18/25 09:00 Cholecalciferol 5,000 unit DAILY PO 01/18/25 10:28 01/19/25 10:03 5,000 UNIT Patient Own Medication 1 gm DAILY PO 01/18/25 10:00 01/18/25 10:00 1 GM Atorvastatin Calcium 20 mg DAILY PO 01/18/25 10:00 01/19/25 10:01 20 MG Chlorthalidone 25 mg DAILY PO 01/18/25 10:00 01/19/25 10:01 25 MG Losartan Potassium 50 mg DAILY PO 01/18/25 10:00 01/19/25 10:01 50 MG Amlodipine Besylate 10 mg DAILY PO 01/18/25 10:32 01/19/25 10:00 10 MG Saccharomyces Boulardii 250 mg DAILY PO 01/18/25 10:00 01/19/25 10:06 250 MG Pantoprazole Sodium 40 mg DAILY IV 01/18/25 10:00 01/21/25 08:34 40 MG Gabapentin 300 mg DAILY PO 01/18/25 10:00 01/19/25 10:02 300 MG Hydralazine HCl 10 mg Q6HP PRN IV 01/18/25 10:45 01/18/25 23:24 10 MG Morphine Sulfate 2 mg Q4HPRN PRN IV 01/18/25 11:30 01/20/25 17:50 2 MG Piperacillin Sod/ Tazobactam Sod 100 ml @ 25 mls/hr Q6H IV 01/19/25 01:00 01/21/25 12:33 25 MLS/HR Vancomycin HCl 250 ml @ 200 mls/hr Q8H IV 01/19/25 14:00 01/21/25 13:38 200 MLS/HR Metoclopramide HCl 10 mg Q8HR IV 01/20/25 22:00 01/21/25 13:52 10 MG objective Abdomen is soft mild tenderness in the periumbilical area no rigidity no guarding but better No masses laboratory and microbiology Laboratory Tests 01/21/25 05:39 Test 01/21/25 05:39 Range/Units Serum Glucose 102 74-106 mg/dL Assessment/Plan Patient is much better with decreased abdominal pain repeat CAT scan showed no gross abnormalities We will recommend to increase the diet and could be discharged any time if tolerating feeds well Thank you Dr. Perry Plan discussed with: Patient HAYLEY PERRY MD Jan 21, 2025 16:26
[2025-01-21 17:03] VITALS: BP 127/93; PULSE 87; RESP 18; TEMP 97.3; O2SAT 98
[2025-01-21 21:00] VITALS: BP 144/102; PULSE 103; RESP 19; TEMP 98; O2SAT 99
[2025-01-22 01:00] VITALS: BP 145/91; PULSE 84; RESP 19; TEMP 97.7; O2SAT 98
[2025-01-22 05:15] LABS: Basophils # (auto) 0 10 ^3/uL (0-0.2); Basophils % (auto) 0.4 % (0.0-2.0); Eosinophils # (auto) 0 10 ^3/uL (0-0.8); Eosinophils % (auto) 0.4 % (0.0-7.0); Hematocrit 43.4 % (41.0-53.0); Lymphocytes # (auto) 3.4 10 ^3/uL (0.4-5.4); Lymphocytes % (auto) 27.9 % (10.0-50.0); Mean Corpuscular Hgb Conc. 34.7 g/dL (32.0-36.0); Mean Corpuscular Volume 86.6 fL (80.0-100.0); Monocytes # (auto) 0.9 10 ^3/uL (0-1.3); Monocytes % (auto) 7.6 % (0.0-12.0); Neutrophils # (auto) 7.7 10 ^3/uL (1.6-8.6); Neutrophils % (auto) 63.7 % (37.0-80.0); Nucleated Red Blood Cells % 0.1 %; Platelet Count (auto) 189 10^3/uL (140-450); Red Blood Cells 5.01 10^6/uL (4.5-5.90); Red Cell Distribution Width 13.6 % (11.8-14.3); White Blood Cell 12.1 10^3/uL (4.4-10.8)
[2025-01-22 05:28] LABS: Calcium 9.3 mg/dL (8.7-10.4); Chloride 105 mmol/L (98-107); Sodium 141 mmol/L (136-145)
[2025-01-22 05:29] LABS: Anion Gap 10 (5-15); Carbon Dioxide 26 mmol/L (20-31); Potassium 3.5 mmol/L (3.5-5.1)
[2025-01-22 05:34] LABS: BUN/Creatinine Ratio 10.7 (10.0-20.0); Blood Urea Nitrogen 12 mg/dL (9-23); Glucose 93 mg/dL (74-106)
[2025-01-22 05:35] LABS: Magnesium 2.2 mg/dL (1.6-2.6)
[2025-01-22 09:00] VITALS: BP 134/80; PULSE 77; RESP 18; TEMP 98; O2SAT 99
--- NOTE | 2025-01-22 12:06 | DVHDS2 ---
Discharge Summary Date of Admission Jan 18, 2025 at 08:57 Date of Discharge: Jan 22, 2025 Labs/Diagnostic Data: Laboratory Results Test 01/22/25 04:51 01/21/25 12:55 01/21/25 05:39 01/18/25 12:04 White Blood Count 12.1 10^3/uL (4.4-10.8) Red Blood Count 5.01 10^6/uL (4.5-5.90) Hemoglobin 15.0 g/dL (13.5-17.5) Hematocrit 43.4 % (41.0-53.0) Mean Corpuscular Volume 86.6 fL (80.0-100.0) Mean Corpuscular Hemoglobin 30.0 pg (28.0-32.0) Mean Corpuscular Hemoglobin Concent 34.7 g/dL (32.0-36.0) Red Cell Distribution Width 13.6 % (11.8-14.3) Platelet Count 189 10^3/uL (140-450) Mean Platelet Volume 8.4 fL (6.9-10.8) Neutrophils (%) (Auto) 63.7 % (37.0-80.0) Lymphocytes (%) (Auto) 27.9 % (10.0-50.0) Monocytes (%) (Auto) 7.6 % (0.0-12.0) Eosinophils (%) (Auto) 0.4 % (0.0-7.0) Basophils (%) (Auto) 0.4 % (0.0-2.0) Neutrophils # (Auto) 7.7 10 ^3/uL (1.6-8.6) Lymphocytes # (Auto) 3.4 10 ^3/uL (0.4-5.4) Monocytes # (Auto) 0.9 10 ^3/uL (0-1.3) Eosinophils # (Auto) 0 10 ^3/uL (0-0.8) Basophils # (Auto) 0 10 ^3/uL (0-0.2) Nucleated Red Blood Cells 0.1 % Sodium Level 141 mmol/L (136-145) Potassium Level 3.5 mmol/L (3.5-5.1) Chloride Level 105 mmol/L (98-107) Carbon Dioxide Level 26 mmol/L (20-31) Anion Gap 10 (5-15) Blood Urea Nitrogen 12 mg/dL (9-23) Creatinine 1.12 mg/dL (0.700-1.30) Glomerular Filtration Rate Calc 85 mL/min (>90) BUN/Creatinine Ratio 10.7 (10.0-20.0) Serum Glucose 93 mg/dL (74-106) Calcium Level 9.3 mg/dL (8.7-10.4) Magnesium Level 2.2 mg/dL (1.6-2.6) Vancomycin Level Trough 16.2 ug/mL (5-10) Total Bilirubin 1.1 mg/dL (0.2-1.0) Aspartate Amino Transferase (AST) 40 U/L (13-40) Alanine Aminotransferase (ALT) 47 U/L (7-40) Alkaline Phosphatase 51 U/L (46-116) Total Protein 6.9 g/dL (5.7-8.2) Albumin 4.5 g/dL (3.2-4.8) Lactic Acid Level 2.6 mmol/L (0.4-2.0) Test 01/18/25 08:30 Urine Color Colorless (Yellow) Urine Clarity Clear (Clear) Urine pH 8.0 (5.0-9.0) Urine Specific [place] 1.013 (1.001-1.035) Urine Protein Negative (Negative) Urine Ketones Negative (Negative) Urine Blood Negative /uL (Negative) Urine Nitrite Negative (Negative) Urine Bilirubin Negative (Negative) Urine Urobilinogen Normal mg/dL (Negative) Urine Leukocyte Esterase Negative /uL (Negative) Urine RBC <1 /hpf (0 - 3) Urine Microscopic WBC < 1 /HPF (0-3) Urine Squamous Epithelial Cells None seen /hpf (<5) Urine Bacteria None seen /hpf (None Seen) Urine Glucose Normal mg/dL (Normal) Urine Opiates Screen Neg (NEGATIVE) Urine Fentanyl Screen Neg (NEGATIVE) Urine Barbiturates Screen Neg (NEGATIVE) Urine Phencyclidine Screen Neg (NEGATIVE) Urine Amphetamines Screen Neg (NEGATIVE) Urine Benzodiazepines Screen Neg (NEGATIVE) Urine Cocaine Screen Neg (NEGATIVE) Urine Cannabinoids Screen Pos (NEGATIVE) Other Laboratory Tests 01/22/25 04:51 Brief Hx & Hospital Course: Final diagnoses: Intractable nausea and vomiting Abdominal pain Diverticulosis Sepsis Hypokalemia Hypercalcemia Dehydration Leukocytosis due to diverticulitis or other abdominal etiology Hypertension Mixed hyperlipidemia 39-year-old male was admitted for abdominal pain and nausea and vomiting His abdominal pain was in the epigastric area On CT scan he had diverticulosis No diverticulitis He was given IV fluids and potassium supplements however the next day he had increased abdominal pain and nausea and vomiting, again the pain was in the epigastric area Now much tenderness or pain in the left or right lower quadrants Repeat CT scan of the abdomen was negative He was given pain medication and a GI cocktail and IV Protonix and IV Reglan Eventually he improved and he was started on clear liquid diet and then soft diet and overnight he is tolerating his diet and no more abdominal pain or nausea and vomiting He will be discharged home today Advance diet slowly as tolerated Resume other home medications Continue omeprazole which she takes at home Condition at Discharge: Stable Final Diagnosis/Problems List Intractable nausea and vomiting most likely due to acute gastritis due to GERD GERD Abdominal pain due to GERD History of H pylori Diverticulosis with no diverticulitis Sepsis Hypokalemia Hypercalcemia Dehydration No diverticulitis Hypertension Mixed hyperlipidemia Discharge Disposition: Home SNF Discharge Will this Physician continue t: No Discharge Instruct/Medications Diet: Cardiac 2g Na,low cholest Diet comment: Advance diet slowly as tolerated Activity: No Restrictions, As Tolerated Follow Up/Referral: PCP as soon as possible Medications: Same home medications Discharge Statement: "Patient was advised to return to the ER or call 911 if any headaches, dizziness, shortness of breath, chest pain, abdominal pain, bleeding, fevers, or worsening of medical condition. Patient was counseled about treatment plan, medications, possible side effects, patientverbalized understanding. All questions were answered to the best of my ability. This discharge took greater then 30 minutes in planning, reviewing documentation, counseling the patient, and discussing with other team members." ASSESSMENT ASSESSMENT Assessment Intractable nausea and vomiting most likely due to acute gastritis due to GERD GERD Abdominal pain due to GERD History of H pylori Diverticulosis with no diverticulitis Sepsis Hypokalemia Hypercalcemia Dehydration No diverticulitis Hypertension Mixed hyperlipidemia Date of Service: Jan 22, 2025 Billing Provider: EDNA GILBERT MD Common Visit Codes: [id number] DISCH DAY >30min EDNA GILBERT MD Jan 22, 2025 12:06
== END 2025-01-22 13:16 | disposition home or self-care (01) | DRG 720 ==
LOC: ER 07:37 → OVERFLOW 08:57 → WEST WING 18:18
PROVIDERS: ADMIT Internal Medicine Geriatric Medicine; ATTEND Internal Medicine Geriatric Medicine
DX: A41.9 Sepsis, unspecified organism (principal); E87.20 Acidosis, unspecified; E66.01 Morbid (severe) obesity due to excess calories; I16.1 Hypertensive emergency; E78.2 Mixed hyperlipidemia; E83.52 Hypercalcemia; E86.0 Dehydration; E87.6 Hypokalemia; K21.9 Gastro-esophageal reflux disease without esophagitis; K52.9 Noninfective gastroenteritis and colitis, unspecified; K29.00 Acute gastritis without bleeding; I10 Essential (primary) hypertension; K57.30 Diverticulosis of large intestine without perforation or abscess without bleeding; Z88.6 Allergy status to analgesic agent; Z91.040 Latex allergy status; Z79.899 Other long term (current) drug therapy; Z86.19 Personal history of other infectious and parasitic diseases; Z82.49 Family history of ischemic heart disease and other diseases of the circulatory system; Z83.3 Family history of diabetes mellitus; Z68.41 Body mass index [BMI] 40.0-44.9, adult
CPT/HCPCS: 36415; 74176; 74177; 80048; 80053; 80202; 80307; 81001; 83605; 83735; 85025; 87040; 93005; 96365; 96375; 99291; 99292; G0378; J2405; J2470; J2543; J3480

== ENCOUNTER 2025-03-27 08:03 | Inpatient (IN) | payer MEDICAID ==
[~2025-03-27] VITALS: Ht 177.8 cm; Wt 120.9 kg
[~2025-03-27 08:03] MED LIST changes: +AMLO1TAB23 PO; +ATOR20TA50 PO; +GABA-1250 PO; -LISI-287 PO; -METR-344 PO; +TRAM50TA2 PO
[2025-03-27 08:51] LABS: Urine Protein, UAD Negative (Negative)
--- NOTE | 2025-03-27 08:54 | ED.PDOC ---
GI ASSESSMENT HPI Comments 39 y/o M, with PMHx of diverticulitis presents to the ED for CC of abdominal pain. Patient states, he has been experiencing suprapubic abdominal pain with associated nausea and vomiting sudden onset, 0230 this morning (03/27/25). Patient reports, to have experienced similar symptoms in the past with diverticulitis flare-ups. Patient denies hematemesis, melena, constipations, fever, or weakness. No other symptoms or modifying factors present at this time. Chief Complaint: Abdominal Pain Time Seen by MD: 08:50 Primary Care Provider: Unknown Reviewed Notes: Nurses Notes, Medications, Allergies Allergies: Coded Allergies: Ibuprofen (Verified Allergy, Unknown, 11/15/21) Latex (Verified Allergy, Unknown, 11/15/21) Home Meds Active Scripts Pantoprazole Sodium Sesquihydr (Pantoprazole Sodium) 40 Mg Tab, 40 MG PO DAILY for 30 Days, #30 TAB Prov:DANNA TORRES RESIDENT 12/09/23 Acetaminophen (Acetaminophen) 325 Mg Tab, 650 MG PO Q6HP PRN for 30 Days, #240 TAB Prov:DANNA TORRES RESIDENT 12/09/23 Reported Medications Tramadol Hcl (Tramadol Hcl) 50 Mg Tab, 50 MG PO PRN, TAB 01/19/25 Amlodipine Besylate (Amlodipine Besylate) 10 Mg Tab, 1 TAB PO DAILY 01/18/25 Gabapentin (Gabapentin) 300 Mg Cap, 1 CAP PO DAILY 01/18/25 Atorvastatin Calcium (ATORVASTATIN CALCIUM) 20 Mg Tab, 1 TAB PO DAILY 01/18/25 Frffy-5-Oomw Ethyl Esters (Xfpzm-0-Ytve Ethyl Esters) 1 Gm Cap, 1 GM PO DAILY, CAP 07/01/24 Cholecalciferol (VITAMIN D3) 5,000 Unit Cap, 1 CAP PO DAILY 12/08/23 Information Source: Patient Mode of Arrival: Wheelchair Timing: Hours Duration: Since onset Prehospital treatment: None Quality: None Vomitus: Watery Stool: Normal Severity: Moderate Recent: None Recent Hx of: None Pain Location: Suprapubic Modifying Factors: Nothing Associated sign and symptoms: Nausea, Vomiting, Abdominal Pain Past Medical History PAST MEDICAL HISTORY: Denies Surgical History: Denies all surgeries Family History Family History: No family hx of DM, No family hx of Heart marcelo, No family hx of HTN Social History Smoker: Quit Less Than 1 Year, Other Alcohol: Occasionally Drugs: Marijuana Lives In: Home Constitutional: denies: chills, diaphoresis, fatigue, fever, malaise, sweats, weakness, others EENTM: denies: blurred vision, double vision, ear bleeding, ear discharge, ear drainage, ear pain, ear ringing, eye pain, eye redness, hearing loss, mouth pain, mouth swelling, nasal discharge, nose bleeding, nose congestion, nose pain, photophobia, tearing, throat pain, throat swelling, voice changes, others Respiratory: denies: cough, hemoptysis, orthopnea, SOB at rest, shortness of breath, SOB with excertion, stridor, wheezing, others Cardiovascular: denies: chest pain, dizzy spells, diaphoresis, Dyspnea on exertion, edema, irregular heart beat, left arm pain, lightheadedness, palpitations, PND, syncope, others Gastrointestinal: reports: abdominal pain, nausea, vomiting; denies: abdomen distended, blood streaked bowels, constipated, diarrhea, dysphagia, difficulty swallowing, hematemesis, melena, poor appetite, poor fluid intake, rectal bleeding, rectal pain, others Genitourinary: denies: burning, dysuria, flank pain, frequency, hematuria, incontinence, penile discharge, penile sore, pain, testicle pain, testicle swelling, urgency, others Neurological: denies: dizziness, fainting, headache, left sided numbness, left sided weakness, numbness, paresthesia, pre-existing deficit, right sided numbness, right sided weakness, seizure, speech problems, tingling, tremors, weakness, others Musculoskeletal: denies: back pain, gout, joint pain, joint swelling, muscle pain, muscle stiffness, neck pain, others Integumetry: denies: bruises, change in color, change in hair/nails, dryness, laceration, lesions, lumps, rash, wounds, others Allergic/Immunocompromised: denies: Difficulty Healing, Frequent Infections, Hives, Itching, others Hematologic/Lymphatic: denies: anemia, blood clots, easy bleeding, easy bruising, swollen glands, others Endocrine: denies: excessive hunger, excessive sweating, excessive thirst, excessive urination, flushing, intolerance to cold, intolerance to heat, unexplained weight gain, unexplained weight loss, others Psychiatric: denies: anxiety, bipolar disorder, depression, hopeless, panic disorder, schizophrenia, sleepless, suicidal, others All Other Systems: Reviewed and Negative Physical Exam General Appearance: Moderate Distress, Obese, Other HEENT: Normal ENT Inspection, Pharynx Normal, TMs Normal Neck: Full Range of Motion, Non-Tender, Normal, Normal Inspection Respiratory: Chest Non-Tender, Lungs Clear, No Accessory Muscle Use, No Respi ratory Distress, Normal Breath Sounds Cardiovascular: No Edema, No Murmur, No Gallop, Normal Peripheral Pulses, Regular Rate/Rhythm Breast Exam: Deferred Gastrointestinal: No Organomegaly, No Pulsatile Mass, Normal Bowel Sounds, Suprapubic, Tenderness Genitalia: Deferred Pelvic: Deferred Rectal: Deferred Extremities: No calf tenderness, Normal capillary refill, Normal inspection, Normal range of motion, Non-tender, No pedal edema Musculoskeletal : Apperance: Normal Neurologic: Alert, drier feeder II-XII nml as Tested, No Motor Deficits, Normal Affect, Normal Mood, No Sensory Deficits Cerebellar Function: Normal Reflexes: Normal Skin: Diaphoresis, Normal Color, Warm Lymphatic: No Adenopathy Was a procedure done? Was a procedure done?: No GI differential Dx Differential Diagnosis: Diverticular disease, Inflammatory BD X-Ray, Labs, Meds, VS Vital Signs Date Time Temp Pulse Resp B/P (MAP) Pulse Ox O2 Delivery O2 Flow Rate FiO2 03/27/25 12:14 60 15 183/111 03/27/25 12:00 60 12 183/111 03/27/25 12:00 60 12 97 Room Air* 0 21 03/27/25 12:00 98.4 60 12 183/111 (135) 97 98.4 03/27/25 09:13 67 22 176/114 03/27/25 08:04 97.6 86 15 150/111 97 97.6 Lab Test 03/27/25 09:00 03/27/25 08:50 03/27/25 08:29 Range/Units White Blood Count 13.9 H 4.4-10.8 10^3/uL Red Blood Count 5.14 4.5-5.90 10^6/uL Hemoglobin 15.6 13.5-17.5 g/dL Hematocrit 44.9 41.0-53.0 % Mean Corpuscular Volume 87.3 80.0-100.0 fL Mean Corpuscular Hemoglobin 30.4 28.0-32.0 pg Mean Corpuscular Hemoglobin Concent 34.8 32.0-36.0 g/dL Red Cell Distribution Width 13.4 11.8-14.3 % Platelet Count 221 140-450 10^3/uL Mean Platelet Volume 9.0 6.9-10.8 fL Neutrophils (%) (Auto) 82.2 H 37.0-80.0 % Lymphocytes (%) (Auto) 14.6 10.0-50.0 % Monocytes (%) (Auto) 2.8 0.0-12.0 % Eosinophils (%) (Auto) 0.2 0.0-7.0 % Basophils (%) (Auto) 0.2 0.0-2.0 % Neutrophils # (Auto) 11.4 H 1.6-8.6 10 ^3/uL Lymphocytes # (Auto) 2.0 0.4-5.4 10 ^3/uL Monocytes # (Auto) 0.4 0-1.3 10 ^3/uL Eosinophils # (Auto) 0 0-0.8 10 ^3/uL Basophils # (Auto) 0 0-0.2 10 ^3/uL Nucleated Red Blood Cells 0.1 % Sodium Level 141 136-145 mmol/L Potassium Level 3.5 3.5-5.1 mmol/L Chloride Level 108 H 98-107 mmol/L Carbon Dioxide Level 21 20-31 mmol/L Anion Gap 12 5-15 Blood Urea Nitrogen 7 L 9-23 mg/dL Creatinine 1.11 0.700-1.30 mg/dL Glomerular Filtration Rate Calc 86 >90 mL/min BUN/Creatinine Ratio 6.3 L 10.0-20.0 Serum Glucose 121 H 74-106 mg/dL Calcium Level 9.7 8.7-10.4 mg/dL Total Bilirubin 0.5 0.2-1.0 mg/dL Aspartate Amino Transferase (AST) 29 13-40 U/L Alanine Aminotransferase (ALT) 36 7-40 U/L Alkaline Phosphatase 67 46-116 U/L Total Protein 7.6 5.7-8.2 g/dL Albumin 5.1 H 3.2-4.8 g/dL Urine Color Light-yellow Yellow Urine Clarity Clear Clear Urine pH 6.5 5.0-9.0 Urine Specific [place] 1.015 1.001-1.035 Urine Protein Negative Negative Urine Ketones Negative Negative Urine Blood Negative Negative /uL Urine Nitrite Negative Negative Urine Bilirubin Negative Negative Urine Urobilinogen Normal Negative mg/dL Urine Leukocyte Esterase Negative Negative /uL Urine RBC None seen 0 - 3 /hpf Urine Microscopic WBC 2 0-3 /HPF Urine Squamous Epithelial Cells Few <5 /hpf Urine Bacteria None seen None Seen /hpf Urine Glucose Normal Normal mg/dL Current Medications Medications (Trade) Dose Ordered Sig/Darshana Route Start Time Stop Time Status Last Admin Sodium Chloride 1,000 ml @ 1,000 mls/hr Q1H ONCE IV 03/27/25 09:00 03/27/25 09:59 DC 03/27/25 09:11 Morphine Sulfate 4 mg ONCE ONCE IV 03/27/25 09:00 03/27/25 09:01 DC 03/27/25 09:13 Ondansetron HCl (Zofran) 4 mg ONCE ONCE IV 03/27/25 09:00 03/27/25 09:01 DC 03/27/25 09:14 Pantoprazole Sodium (Protonix) 40 mg ONCE ONCE IV 03/27/25 12:15 03/27/25 12:16 DC 03/27/25 12:12 Morphine Sulfate 4 mg ONCE ONCE IV 03/27/25 12:15 03/27/25 12:16 DC 03/27/25 12:14 Ondansetron HCl (Zofran) 4 mg ONCE ONCE IV 03/27/25 12:15 03/27/25 12:16 DC 03/27/25 12:14 [place] [id number] Ph: [phone] DIAGNOSTIC IMAGING Diagnostic Imaging Report : [id number] Signed PATIENT: DELFIN LIMA BACCT: [id number] UNIT: [id number] : 1985 LOC: ER ROOM / BED: / AGE / SEX: 39 / M ADM STATUS: REG ER SERVICE [id number] ORDERING PHYSICIAN: CLAIRE BECKFORD MD PROCEDURE(s): ABPLIV - CT AB PEL WITH IV CON ONLY REASON: abdominal pain ORDER NUMBER(s): [id number], ACCESSION NUMBER(s): [id number] Exam: CT CT AB PEL WITH IV CON ONLY History: abdominal pain COMPARISON: CT CT ABD PELVIS W CON-ORAL IV on DOS: 01/21/25, CT CT AB PEL WO CON-NO ORAL OR IV on DOS: 01/18/25, CT CT AB PEL WO CON-NO ORAL OR IV on DOS: 06/30/24 Technique: Multidetector spiral CT of the abdomen and pelvis was performed from lung bases to pubic symphysis. Intravenous contrast was administered during this examination. Portal venous imaging was obtained. Axial, coronal and sagittal multiplanar reformats were performed by the technologist on a separate workstation. Radiation Dose : Abdomen/Pelvis: CTDIvol 26.84 mGy, DLP 1824.86 mGy*cm. CONTRAST: Type of contrast: Omni 300 Contrast injected: 100 mL Findings: Lung Bases: No acute or significant lung base finding. Normal heart size. No pleural or pericardial effusion. Liver: Diffuse hepatic steatosis. Gallbladder and biliary Tree: Unremarkable Spleen: Unremarkable Pancreas: The pancreas is normal in appearance without focal lesions or abnormal enhancement. Adrenal Glands: Unremarkable Kidneys: No hydronephrosis. Subcentimeter right renal cyst. Bladder: Unremarkable Bowel: The stomach is grossly normal in appearance. Small bowel and colon are normal in caliber and distribution. Normal appendix is visualized in the right lower quadrant without findings of appendicitis. Sigmoid diverticulosis with minimal adjacent stranding. Ascites: Absent Lymphadenopathy: No mesenteric, retroperitoneal or periportal lymphadenopathy. Abdominal wall and Mesentery: Unremarkable. Vasculature: The visualized abdominal aorta is normal in size and caliber. Abdominal and pelvic vessels demonstrate normal enhancement. Pelvic Organs: Unremarkable Musculoskeletal: No aggressive focal bony lesions, acute fractures or dislocation. IMPRESSION: 1. Sigmoid diverticulosis with minimal adjacent stranding, can not exclude early diverticulitis. Clinical correlation and continued follow-up is recommended. 2. Diffuse hepatic steatosis. Subcentimeter right renal cysts. Radiation optimization: All CT scans at this facility use at least one of these dose optimization techniques: Automated exposure control mA and/or kV adjustment per patient size (includes targeted exams where dose is matched to clinical indication) or iterative reconstruction. HS:Y ATED BY: KALEB WALSH MD DICTATED DATE/TIME: 03/27/25 1057 SIGNED BY: KALEB WALSH MD SIGNED DATE/TIME: 03/27/25 1057 CC: Time of 1ST Reevaluation: 09:20 Reevaluation 1ST: Unchanged Patient Education/Counseling: Diagnosis, Treatment Family Education/Counseling: No Family Present SEPSIS Sepsis Screen Date sepsis recognized/suspect: Mar 27, 2025 Time Sepsis recognized/suspect: 805 Recent Procedure: No On Antibiotic Therapy: No Respiratory Rate >20: No Heart Rate >90: No Temp<36 C (96.8 F) or >38.3 C: No SBP <90 or MAP <65 mmHG: No New Acute Mental Status Change: No Is the patient on CPAP, BIPAP,: No Physician Orders Ct Ab Pel With Iv Con Only (03/27/25 08:49) Vital Signs Date Time Temp Pulse Resp B/P (MAP) Pulse Ox O2 Delivery O2 Flow Rate FiO2 03/27/25 12:14 60 15 183/111 03/27/25 12:00 60 12 183/111 03/27/25 12:00 60 12 97 Room Air* 0 21 03/27/25 12:00 98.4 60 12 183/111 (135) 97 98.4 03/27/25 09:13 67 22 176/114 03/27/25 08:04 97.6 86 15 150/111 97 97.6 Laboratory Tests Test 03/27/25 09:00 White Blood Count 13.9 10^3/uL (4.4-10.8) H Medications Medications Dose Ordered Sig/Darshana Route Start Time Stop Time Status Last Admin Dose Admin Morphine Sulfate 4 mg ONCE ONCE IV 03/27/25 09:00 03/27/25 09:01 DC 03/27/25 09:13 Morphine Sulfate 4 mg ONCE ONCE IV 03/27/25 12:15 03/27/25 12:16 DC 03/27/25 12:14 Ondansetron HCl 4 mg ONCE ONCE IV 03/27/25 09:00 03/27/25 09:01 DC 03/27/25 09:14 Ondansetron HCl 4 mg ONCE ONCE IV 03/27/25 12:15 03/27/25 12:16 DC 03/27/25 12:14 Pantoprazole Sodium 40 mg ONCE ONCE IV 03/27/25 12:15 03/27/25 12:16 DC 03/27/25 12:12 Sodium Chloride 1,000 ml @ 1,000 mls/hr Q1H ONCE IV 03/27/25 09:00 03/27/25 09:59 DC 03/27/25 09:11 Departure 1 Departure Time of Disposition: 12:22 (Patient presented with abdominal pain that was concerning for possible appendicits, gastritis, cholecystitis, colitis, gastroenteritis, sbo, or orther possible surgical emergency. Data: 1. I ordered and reviewed the result of at least 3 labs including a CBC, BMP, and Urinalysis. 2. I independently interpreted the following tests: CT Abdoment and Pelvis is concerning for diverticulitis .Risk:This patient has a high risk of morbidity due to further diagnostic testing or treatment and may suffer from an acute abdominal process disorder. Workup reveals diverticulitis and projectile vomiting and patient should be admitted for further workup. and possible expert consultation. ) Impression: Primary Impression: Diverticulitis of intestine Qualified Codes: K57.32 - Diverticulitis of large intestine without perforation or abscess without bleeding Additional Impressions: Intractable abdominal pain Vomiting Qualified Codes: R11.12 - Projectile vomiting Disposition: ADMITTED INPATIENT Admit to: Med Surg Condition: Serious Critical Care Note Critical Care Time?: Yes Critical care comment: Intractable Abdominal Pain Authorized and Performed by: Claire Bekcford MD Total critical care time: Approximately 38 minutes Due to a high probability of clinically significant, life threatening deterioration, the patient required my highest level of preparedness to inte rvene emergently and I personally spent this critical care time directly and personally managing the patient. This critical care time included obtaining a history; examining the patient; pulse oximetry; ordering and review of studies; arranging urgent treatment with development of a management plan; evaluation of patient's response to treatment; frequent reassessment; and, discussions with other providers. This critical care time was performed to assess and manage the high probability of imminent, life-threatening deterioration that could result in multi-organ failure. It was exclusive of separately billable procedures and treating other patients and teaching time. Please see my other sections and the rest of the note for further information on patient assessment and treatment. Stability Stability form required: No Heart Score Heart Score: Heart Score Response (Comments) Value History N/A 0 EKG N/A 0 Age N/A 0 Risk Factors N/A 0 Troponin N/A 0 Total 0 I personally scribed for CLAIRE BECKFORD MD ([email or web address]) on 03/27/25 at 08:54. El ectronically submitted by Peggy Mayfield ([email or web address]). I personally scribed for CLAIRE BECKFORD MD ([email or web address]) on 03/27/25 at 11:04. Elect ronically submitted by Peggy Mayfield ([email or web address]). CLAIRE BECKFORD MD Mar 27, 2025 08:54
[2025-03-27] MEDS: SODIUM CHLORIDE 0.9% 1,000 ML IV ONE ×2 (09:11→15:30)
[2025-03-27] MEDS: MORPHINE SULFATE 4 MG/ML SYR/VIAL IV ONE ×2 (09:13→12:14)
[2025-03-27] MEDS: ONDANSETRON HCL 4 MG/2 ML VIAL IV ONE ×2 (09:14→12:14)
[2025-03-27] MEDS: IOHEXOL 300 MG/ML 100ML BOTTLE IJ ONE ×2 (09:14→09:47)
[2025-03-27 09:30] LABS: Hematocrit 44.9 % (41.0-53.0); Hemoglobin 15.6 g/dL (13.5-17.5); Mean Corpuscular Hemoglobin 30.4 pg (28.0-32.0); Mean Corpuscular Volume 87.3 fL (80.0-100.0); Nucleated Red Blood Cells % 0.1 %
[2025-03-27 09:47] LABS: Alanine Aminotransferase 36 U/L (7-40); Alkaline Phosphatase 67 U/L (46-116); Anion Gap 12 (5-15); BUN/Creatinine Ratio 6.3 (10.0-20.0); Calcium 9.7 mg/dL (8.7-10.4); Carbon Dioxide 21 mmol/L (20-31); Potassium 3.5 mmol/L (3.5-5.1); Sodium 141 mmol/L (136-145); Total Protein 7.6 g/dL (5.7-8.2)
[2025-03-27 09:48] LABS: Bilirubin, Total 0.5 mg/dL (0.2-1.0)
[2025-03-27 09:49] LABS: Albumin 5.1 g/dL (3.2-4.8); Blood Urea Nitrogen 7 mg/dL (9-23); Chloride 108 mmol/L (98-107); Glucose 121 mg/dL (74-106)
--- NOTE | 2025-03-27 10:57 | DVH ---
Exam: CT CT AB PEL WITH IV CON ONLY History: abdominal pain COMPARISON: CT CT ABD PELVIS W CON-ORAL IV on DOS: 01/21/25, CT CT AB PEL WO CON-NO ORAL OR IV on DOS : 01/18/25, CT CT AB PEL WO CON-NO ORAL OR IV on DOS: 06/30/24 Technique: Multidetector spiral CT of the abdomen and pelvis was performed from lung bases to pubic symphysis. Intravenous contrast was administered during this examination. Portal venous imaging was obtained. Axial, coronal and sagittal multiplanar reformats were performed by the technologist on a separate workstation. Radiation Dose : Abdomen/Pelvis: CTDIvol 26.84 mGy, DLP 1824.86 mGy*cm. CONTRAST: Type of contrast: Omni 300 Contrast injected: 100 mL Findings: Lung Bases: No acute or significant lung base finding. Normal heart size. No pleural or pericardial effusion. Liver: Diffuse hepatic steatosis. Gallbladder and biliary Tree: Unremarkable Spleen: Unremarkable Pancreas: The pancreas is normal in appearance without focal lesions or abnormal enhancement. Adrenal Glands: Unremarkable Kidneys: No hydronephrosis. Subcentimeter right renal cyst. Bladder: Unremarkable Bowel: The stomach is grossly normal in appearance. Small bowel and colon are normal in caliber and d istribution. Normal appendix is visualized in the right lower quadrant without findings of appendicit is. Sigmoid diverticulosis with minimal adjacent stranding. Ascites: Absent Lymphadenopathy: No mesenteric, retroperitoneal or periportal lymphadenopathy. Abdominal wall and Mesentery: Unremarkable. Vasculature: The visualized abdominal aorta is normal in size and caliber. Abdominal and pelvic vess els demonstrate normal enhancement. Pelvic Organs: Unremarkable Musculoskeletal: No aggressive focal bony lesions, acute fractures or dislocation. IMPRESSION: 1. Sigmoid diverticulosis with minimal adjacent stranding, can not exclude early diverticulitis. Cli nical correlation and continued follow-up is recommended. 2. Diffuse hepatic steatosis. Subcentimeter right renal cysts. Radiation optimization: All CT scans at this facility use at least one of these dose optimization jeffrey hniques: Automated exposure control mA and/or kV adjustment per patient size (includes targeted exams where dose is matched to clinical indication) or iterative reconstruction. HS:Y
[2025-03-27 12:00] VITALS: PULSE 60; RESP 12; O2SAT 97
[2025-03-27] MEDS: PANTOPRAZOLE 40 MG/10 ML VIAL INJ IV ONE (12:12)
[2025-03-27] MEDS: ceFAZolin 2 GM/D5W50ml 50 ML IV ONE (12:30)
[2025-03-27] MEDS ORDERED: HYDROcodone-ACET 5/325MG TAB PO PRN (15:30)
[2025-03-27] MEDS ORDERED: DOCUSATE SOD 100 MG CAP PO PRN (15:30)
[2025-03-27] MEDS ORDERED: LOSA-534 PO (15:32)
--- NOTE | 2025-03-27 15:48 | DVHHP2 ---
History of Present Illness Reason for Visit: Abdominal pain History of Present Illness Iban Jennings is a 39-year-old male with past medical history of hypertension, hyperlipidemia, GERD, and diverticulosis, who came to the hospital with complaints of abdominal pain. Patient states he woke up this morning about 0200 with severe abdominal pain with associated nausea and vomiting. Patient states he has had a diverticulitis flair up prior and this feels the same. Cardiovascular: HTN, hyperipidemia GI: Diverticulosis, GERD Past Surgical History: Other (Bilateral carpal tunel surgery) Smoke: No ALCOHOL: rare Drugs: Marijuana Lives: with Family Domestic Violence: Neg Review of Systems Constitutional: No: Fever, Chills, Sweats, Weakness, Malaise, Other Eyes: No: Pain, Vision change, Conjunctivae inflammation, Eyelid inflammation, Other, Redness ENT: No: Ear pain, Ear discharge, Nose pain, Nose discharge, Nose congestion, Mouth pain, Mouth swelling, Throat pain, Throat swelling, Other Respiratory: No: Cough, Dry, Shortness of breath, SOB with excertion, Wheezing, Hemoptysis, Pleuritic Pain, Sputum, Wheezing, Other Cardiovascular: No: Chest Pain, Palpitations, Orthopnea, Paroxysmal Noc. Dyspnea, Edema, Lt Headedness, Other Gastrointestinal: Nausea, Vomiting, Abdominal Pain; No: Diarrhea, Constipation, Melena, Hematochezia, Other Genitourinary: No Dysuria, No Frequency, No Incontinence, No Hematuria, No Retention, No Other Musculoskeletal: No: other, neck pain, shoulder pain, arm pain, back pain, hand pain, leg pain, foot pain Skin: No: Rash, Lesions, Jaundice, Bruising, Other Neurological: No: Weakness, Numbness, Incoordination, Change in speech, Confusion, Seizures, Other Allergies: Coded Allergies: Ibuprofen (Verified Allergy, Unknown, 11/15/21) Latex (Verified Allergy, Unknown, 11/15/21) Medications Current Medications Medications Dose Ordered Sig/Darshana Route Start Time Stop Time Status Last Admin Dose Admin Acetaminophen/ Hydrocodone Bitart 1 tab Q4HP PRN PO 03/27/25 15:30 UNV Ondansetron HCl 4 mg Q4HP PRN IV 03/27/25 15:30 UNV Docusate Sodium 100 mg BIDPRN PRN PO 03/27/25 15:30 UNV Acetaminophen 650 mg Q6HP PRN PO 03/27/25 15:30 UNV Morphine Sulfate 2 mg Q4HPRN PRN IV 03/27/25 15:30 UNV Metronidazole 100 ml @ 100 mls/hr Q8HR IV 03/27/25 22:00 UNV Ceftriaxone Sodium 50 ml @ 100 mls/hr DAILY@09 IV 03/28/25 09:00 UNV Exam Vital Signs Vital Signs Date Time Temp Pulse Resp B/P (MAP) Pulse Ox O2 Delivery O2 Flow Rate FiO2 03/27/25 12:14 60 15 183/111 03/27/25 12:00 97 Room Air* 0 21 03/27/25 12:00 98.4 98.4 General Appearance: Alert, Oriented X3, Cooperative, moderate distress HEENT: Atraumatic, PERRLA Respiratory: Clear to auscultation, Normal air movement Cardiovascular: Regular rate, Normal S1, Normal S2 Abdominal: Normal bowel sounds, Soft, Other (Abdominal pain, nausea) Extremities: No clubbing, No cyanosis, No edema, Normal pulses, No tenderness/swelling Skin: No rashes, No breakdown Neuro: Normal gait, Normal speech, Strength at 5/5 X4 ext Psych/Mental Status: Mental status NL, Mood NL, Other Labs/Xrays Labs Test 03/27/25 09:00 03/27/25 08:50 03/27/25 08:29 Range/Units White Blood Count 13.9 H 4.4-10.8 10^3/uL Red Blood Count 5.14 4.5-5.90 10^6/uL Hemoglobin 15.6 13.5-17.5 g/dL Hematocrit 44.9 41.0-53.0 % Mean Corpuscular Volume 87.3 80.0-100.0 fL Mean Corpuscular Hemoglobin 30.4 28.0-32.0 pg Mean Corpuscular Hemoglobin Concent 34.8 32.0-36.0 g/dL Red Cell Distribution Width 13.4 11.8-14.3 % Platelet Count 221 140-450 10^3/uL Mean Platelet Volume 9.0 6.9-10.8 fL Neutrophils (%) (Auto) 82.2 H 37.0-80.0 % Lymphocytes (%) (Auto) 14.6 10.0-50.0 % Monocytes (%) (Auto) 2.8 0.0-12.0 % Eosinophils (%) (Auto) 0.2 0.0-7.0 % Basophils (%) (Auto) 0.2 0.0-2.0 % Neutrophils # (Auto) 11.4 H 1.6-8.6 10 ^3/uL Lymphocytes # (Auto) 2.0 0.4-5.4 10 ^3/uL Monocytes # (Auto) 0.4 0-1.3 10 ^3/uL Eosinophils # (Auto) 0 0-0.8 10 ^3/uL Basophils # (Auto) 0 0-0.2 10 ^3/uL Nucleated Red Blood Cells 0.1 % Sodium Level 141 136-145 mmol/L Potassium Level 3.5 3.5-5.1 mmol/L Chloride Level 108 H 98-107 mmol/L Carbon Dioxide Level 21 20-31 mmol/L Anion Gap 12 5-15 Blood Urea Nitrogen 7 L 9-23 mg/dL Creatinine 1.11 0.700-1.30 mg/dL Glomerular Filtration Rate Calc 86 >90 mL/min BUN/Creatinine Ratio 6.3 L 10.0-20.0 Serum Glucose 121 H 74-106 mg/dL Calcium Level 9.7 8.7-10.4 mg/dL Total Bilirubin 0.5 0.2-1.0 mg/dL Aspartate Amino Transferase (AST) 29 13-40 U/L Alanine Aminotransferase (ALT) 36 7-40 U/L Alkaline Phosphatase 67 46-116 U/L Total Protein 7.6 5.7-8.2 g/dL Albumin 5.1 H 3.2-4.8 g/dL Urine Color Light-yellow Yellow Urine Clarity Clear Clear Urine pH 6.5 5.0-9.0 Urine Specific [place] 1.015 1.001-1.035 Urine Protein Negative Negative Urine Ketones Negative Negative Urine Blood Negative Negative /uL Urine Nitrite Negative Negative Urine Bilirubin Negative Negative Urine Urobilinogen Normal Negative mg/dL Urine Leukocyte Esterase Negative Negative /uL Urine RBC None seen 0 - 3 /hpf Urine Microscopic WBC 2 0-3 /HPF Urine Squamous Epithelial Cells Few <5 /hpf Urine Bacteria None seen None Seen /hpf Urine Glucose Normal Normal mg/dL Exam: CT CT AB PEL WITH IV CON ONLY Findings: Lung Bases: No acute or significant lung base finding. Normal heart size. No pleural or pericardial effusion. Liver: Diffuse hepatic steatosis. Gallbladder and biliary Tree: Unremarkable Spleen: Unremarkable Pancreas: The pancreas is normal in appearance without focal lesions or abnormal enhancement. Adrenal Glands: Unremarkable Kidneys: No hydronephrosis. Subcentimeter right renal cyst. Bladder: Unremarkable Bowel: The stomach is grossly normal in appearance. Small bowel and colon are normal in caliber and distribution. Normal appendix is visualized in the right lower quadrant without findings of appendicitis. Sigmoid diverticulosis with minimal adjacent stranding. Ascites: Absent Lymphadenopathy: No mesenteric, retroperitoneal or periportal lymphadenopathy. Abdominal wall and Mesentery: Unremarkable. Vasculature: The visualized abdominal aorta is normal in size and caliber. Abdominal and pelvic vessels demonstrate normal enhancement. Pelvic Organs: Unremarkable Musculoskeletal: No aggressive focal bony lesions, acute fractures or dislocation. IMPRESSION: 1. Sigmoid diverticulosis with minimal adjacent stranding, can not exclude early diverticulitis. Clinical correlation and continued follow-up is recommended. 2. Diffuse hepatic steatosis. Subcentimeter right renal cysts. SEPSIS Sepsis Screen Date sepsis recognized/suspect: Mar 27, 2025 Time Sepsis recognized/suspect: 1200 Recent Procedure: No On Antibiotic Therapy: No Respiratory Rate >20: No Heart Rate >90: No Temp<36 C (96.8 F) or >38.3 C: No SBP <90 or MAP <65 mmHG: No New Acute Mental Status Change: No Is the patient on CPAP, BIPAP,: No Physician Orders Ct Ab Pel With Iv Con Only (03/27/25 08:49) Admit (03/27/25 15:20) Code Status (03/27/25 15:20) Hydrocodone-Acet 5/325mg Tab (Portal 5/32 (03/27/25 15:30) Ondansetron Hcl (Zofran) (03/27/25 15:30) Docusate Sodium Capsule (Colace Capsule) (03/27/25 15:30) Complete Blood Count (03/28/25 04:00) Comprehensive Metabolic Panel (03/28/25 04:00) Condition: Serious (03/27/25 15:20) Acetaminophen Tablet (Tylenol Tablet) (03/27/25 15:30) Clear Liq Diet (03/27/25 Dinner) Morphine Sulfate Injection (03/27/25 15:30) * [employer] (03/27/25 15:20) Metronidazole 500mg/100ml (Flagyl 500mg/ (03/27/25 22:00) Ceftriaxone 1gm/50ml D5w (Rocephin) (03/28/25 09:00) Vital Signs Date Time Temp Pulse Resp B/P (MAP) Pulse Ox O2 Delivery O2 Flow Rate FiO2 03/27/25 12:14 60 15 183/111 03/27/25 12:00 60 12 183/111 03/27/25 12:00 60 12 97 Room Air* 0 21 03/27/25 12:00 98.4 60 12 183/111 (135) 97 98.4 03/27/25 09:13 67 22 176/114 03/27/25 08:04 97.6 86 15 150/111 97 97.6 Laboratory Tests Test 03/27/25 09:00 White Blood Count 13.9 10^3/uL (4.4-10.8) H Medications Medications Dose Ordered Sig/Darshana Route Start Time Stop Time Status Last Admin Dose Admin Cefazolin Sodium/ Dextrose 50 ml @ 50 mls/hr ONCE ONCE IV 03/27/25 12:30 03/27/25 13:29 DC 03/27/25 12:30 50 MLS/HR Metronidazole 100 ml @ 100 mls/hr ONCE ONCE IV 03/27/25 12:30 03/27/25 13:29 DC 03/27/25 13:25 100 MLS/HR Morphine Sulfate 4 mg ONCE ONCE IV 03/27/25 09:00 03/27/25 09:01 DC 03/27/25 09:13 4 MG Morphine Sulfate 4 mg ONCE ONCE IV 03/27/25 12:15 03/27/25 12:16 DC 03/27/25 12:14 4 MG Ondansetron HCl 4 mg ONCE ONCE IV 03/27/25 09:00 03/27/25 09:01 DC 03/27/25 09:14 4 MG Ondansetron HCl 4 mg ONCE ONCE IV 03/27/25 12:15 03/27/25 12:16 DC 03/27/25 12:14 4 MG Pantoprazole Sodium 40 mg ONCE ONCE IV 03/27/25 12:15 03/27/25 12:16 DC 03/27/25 12:12 40 MG Sodium Chloride 1,000 ml @ 1,000 mls/hr Q1H ONCE IV 03/27/25 09:00 03/27/25 09:59 DC 03/27/25 09:11 1,000 MLS/HR Assessment/Plan Assessment/Plan Assessment: Diverticulitis of intestine, Hyperglycemia, Hypertension, Hyperlipidemia, Plan: Admit to Med-Surg, GI consult, IV hydration, IV antibiotics, Pain management, Antiemetics, Home medications reconciled, Plan discussed with: Patient My Orders Orders - KELY RIBERA Procedure Category Date Status Time Admit ADMIT 03/27/25 Transmitted 15:20 Code Status CODE 03/27/25 Transmitted 15:20 Hydrocodone-Acet PHA 03/27/25 Logged 5/325mg Tab (Portal 15:30 Ondansetron Hcl PHA 03/27/25 Logged (Zofran) 15:30 Docusate Sodium PHA 03/27/25 Logged Capsule (Colace 15:30 Complete Blood Count LAB 03/28/25 Verified 04:00 Comprehensive LAB 03/28/25 Verified Metabolic Panel 04:00 Condition: Serious MARGE 03/27/25 In Process 15:20 Acetaminophen Tablet PHA 03/27/25 Logged (Tylenol Tablet) 15:30 Clear Liq Diet DIET 03/27/25 Transmitted Dinner Morphine Sulfate PHA 03/27/25 Logged Injection 15:30 * [employer] CONS 03/27/25 Transmitted 15:20 Metronidazole PHA 03/27/25 Logged 500mg/100ml (Flagyl 22:00 Ceftriaxone 1gm/50ml PHA 03/28/25 Logged D5w (Rocephin) 09:00 Date of Service: Mar 27, 2025 Billing Provider: KELY RIBERA Common Visit Codes: [id number] INP/OBS CARE (MOD) KELY RIBERA Mar 27, 2025 15:48
[2025-03-27 19:47] LABS: Urine Protein, UAD Negative (Negative)
[2025-03-27] MEDS: METOCLOPRAMIDE HCL 5MG/ml INJ 2ml VIAL IV PRN (21:57)
[2025-03-27] MEDS: MORPHINE SULFATE INJ 2 MG/ml SYRG IV PRN (21:58)
[2025-03-28] MEDS: SODIUM CHLORIDE 0.9% 1,000 ML IV ONE (00:30)
[2025-03-28 05:35] LABS: Hematocrit 45.1 % (41.0-53.0); Hemoglobin 15.9 g/dL (13.5-17.5); Mean Corpuscular Hemoglobin 30.3 pg (28.0-32.0); Mean Corpuscular Volume 86.2 fL (80.0-100.0); Nucleated Red Blood Cells % 0.0 %
[2025-03-28 05:59] LABS: Alanine Aminotransferase 30 U/L (7-40); Alkaline Phosphatase 58 U/L (46-116); Anion Gap 13 (5-15); BUN/Creatinine Ratio 8.2 (10.0-20.0); Blood Urea Nitrogen 9 mg/dL (9-23); Calcium 9.4 mg/dL (8.7-10.4); Carbon Dioxide 23 mmol/L (20-31); Chloride 103 mmol/L (98-107); Sodium 139 mmol/L (136-145); Total Protein 7.2 g/dL (5.7-8.2)
[2025-03-28 06:00] LABS: Albumin 4.8 g/dL (3.2-4.8); Bilirubin, Total 0.7 mg/dL (0.2-1.0)
[2025-03-28 06:01] LABS: Glucose 110 mg/dL (74-106); Potassium 3.4 mmol/L (3.5-5.1)
[2025-03-28] MEDS: CHOLECALCIFEROL (VITD3) 1,000UNIT=25mCg TAB PO SCH (08:43)
[2025-03-28] MEDS: cefTRIAXone 1GM/50ML D5W 50 ML IV SCH (08:43)
[2025-03-28] MEDS: LOSARTAN POTASSIUM 50 MG TAB PO SCH (08:44)
[2025-03-28] MEDS: GABAPENTIN 300 MG CAP PO SCH (08:44)
[2025-03-28 09:00] VITALS: BP 126/82; PULSE 69; RESP 18; TEMP 98.3; O2SAT 93
[2025-03-28] MEDS ORDERED: PANTOPRAZOLE 40 MG TAB PO SCH (10:00)
[2025-03-28] MEDS: PANTOPRAZOLE 40 MG TAB PO SCH (11:50)
[2025-03-28 13:00] VITALS: BP 145/88; PULSE 71; RESP 18; TEMP 97.9; O2SAT 95
--- NOTE | 2025-03-28 13:24 | DVHINCON2 ---
GI Consult Consult Note GI consult note Date of Consultation: 03/28/2025 Chief Complaint: Diverticulitis Referring Physician: Bro MYLES H&P: 39-year-old male with past medical history of hypertension, hyperlipidemia, GERD and diverticulosis presented to the ER with complains of abdominal pain. Pain started in periumbilical area and radiated to lower abdomen, mostly in lower abdomen at this time but is improving. Patient has nausea denies vomiting. No fevers or chills. similar episodes in the multiple times in past two years and seems to have a flare-up every 2-3 months. Patient admits to regular BM no melena or red blood in stool. Status post colonoscopy one year ago gastric group, with diverticulosis and two polyps removed Past Medical History: HTN, hyperlipidemia, diverticulosis, GERD Past Surgical History: Bilateral carpal tunnel surgery Social History: NO smoking, drinking ETOH Positive marijuana Family History: Noncontributory Review of Systems: Constitutional: no fever, chill, weight loss HEENT: no eye pain, no hearing loss, no oral lesion, no scleral icterus Heart: no chest pain, no chest pressure Lung: no cough, no dyspnea with exertion Abdomen: see HPI Physical exam: General: NAD, AAOX3 Chest: lung duke clear to auscultation Heart: RRR, no murmur Abdomen: non-distended, mild lower abdominal tenderness to palpation, +BS Labs: Labs Test 03/28/25 05:03 03/27/25 14:09 Range/Units White Blood Count 15.4 H 4.4-10.8 10^3/uL Red Blood Count 5.23 4.5-5.90 10^6/uL Hemoglobin 15.9 13.5-17.5 g/dL Hematocrit 45.1 41.0-53.0 % Mean Corpuscular Volume 86.2 80.0-100.0 fL Mean Corpuscular Hemoglobin 30.3 28.0-32.0 pg Mean Corpuscular Hemoglobin Concent 35.2 32.0-36.0 g/dL Red Cell Distribution Width 13.8 11.8-14.3 % Platelet Count 230 140-450 10^3/uL Mean Platelet Volume 9.1 6.9-10.8 fL Neutrophils (%) (Auto) 78.9 37.0-80.0 % Lymphocytes (%) (Auto) 14.3 10.0-50.0 % Monocytes (%) (Auto) 6.6 0.0-12.0 % Eosinophils (%) (Auto) 0.0 0.0-7.0 % Basophils (%) (Auto) 0.2 0.0-2.0 % Neutrophils # (Auto) 12.2 H 1.6-8.6 10 ^3/uL Lymphocytes # (Auto) 2.2 0.4-5.4 10 ^3/uL Monocytes # (Auto) 1.0 0-1.3 10 ^3/uL Eosinophils # (Auto) 0 0-0.8 10 ^3/uL Basophils # (Auto) 0 0-0.2 10 ^3/uL Nucleated Red Blood Cells 0.0 % Sodium Level 139 136-145 mmol/L Potassium Level 3.4 L 3.5-5.1 mmol/L Chloride Level 103 98-107 mmol/L Carbon Dioxide Level 23 20-31 mmol/L Anion Gap 13 5-15 Blood Urea Nitrogen 9 9-23 mg/dL Creatinine 1.10 0.700-1.30 mg/dL Glomerular Filtration Rate Calc 86 >90 mL/min BUN/Creatinine Ratio 8.2 L 10.0-20.0 Serum Glucose 110 H 74-106 mg/dL Calcium Level 9.4 8.7-10.4 mg/dL Magnesium Level 1.8 1.6-2.6 mg/dL Total Bilirubin 0.7 0.2-1.0 mg/dL Aspartate Amino Transferase (AST) 25 13-40 U/L Alanine Aminotransferase (ALT) 30 7-40 U/L Alkaline Phosphatase 58 46-116 U/L Total Protein 7.2 5.7-8.2 g/dL Albumin 4.8 3.2-4.8 g/dL Urine Color Colorless Yellow Urine Clarity Clear Clear Urine pH 7.0 5.0-9.0 Urine Specific [place] 1.018 1.001-1.035 Urine Protein Negative Negative Urine Ketones Trace Negative Urine Blood Negative Negative /uL Urine Nitrite Negative Negative Urine Bilirubin Negative Negative Urine Urobilinogen Normal Negative mg/dL Urine Leukocyte Esterase Negative Negative /uL Urine RBC <1 0 - 3 /hpf Urine Microscopic WBC 0-3 /HPF Urine Squamous Epithelial Cells Few <5 /hpf Urine Bacteria None seen None Seen /hpf Urine Glucose Normal Normal mg/dL Imaging: CT abdomen pelvis IMPRESSION: 1. Sigmoid diverticulosis with minimal adjacent stranding, can not exclude early diverticulitis. Clinical correlation and continued follow-up is recommended. 2. Diffuse hepatic steatosis. Subcentimeter right renal cysts. Assessment: Diverticulitis Abdominal pain improving Plan: Discussed with Dr. Pulido Continue antibiotics Full liquid diet Outpatient GI follow-up in six weeks Discussed plan with patient and RN Thank you for this consult Date of Service: Mar 28, 2025 Billing Provider: LASHAUN MCCLURE Common Visit Codes: CONSULT ONLY Consultation Codes: [id number] CONSULT <60MIN LASHAUN MCCLURE Mar 28, 2025 13:24
[2025-03-28] MEDS: ACETAMINOPHEN 325 MG TAB PO PRN (14:25)
[2025-03-28] MEDS: POTASSIUM CHLORIDE 40 MEQ, LIDOCAINE 1% (LOCAL ANESTH.) 4 ML in SODIUM CHL 0.9% 250 ML IV ONE (15:09)
[2025-03-28 15:33] VITALS: BP 129/96; PULSE 90; RESP 20; TEMP 97.6; O2SAT 99
--- NOTE | 2025-03-28 15:41 | DVHPNRES ---
Progress Note Date Seen: Mar 28, 2025 Resident Creating Document: KI WEISS ABDULKADIR Has the PT tested + for MRSA If YES, has PT been informed?: No Medical Necessity Reason Pt with a Central, PICC or Fol: No Subjective Review of Systems Iban Jennings is a 39-year-old male with past medical history of hypertension, hyperlipidemia, GERD, and diverticulosis, who came to the hospital with complaints of abdominal pain. Patient states he woke up this morning about 0200 with severe abdominal pain with associated nausea and vomiting. Patient states he has had a recurrent diverticulitis flare-up since 5 years. He had a colonoscopy and upper GI endoscopy last day. In colonoscopy was showing diverticulosis otherwise nonsignificant. Past medical history: HTN, hyperipidemia and Diverticulosis, GERD Patient seen and examined at bedside. Patient is feeling better since admission but still complaining of abdominal pain. Objective vital signs Vital Sign Date Time Temp Pulse Resp B/P (MAP) Pulse Ox O2 Delivery O2 Flow Rate FiO2 03/28/25 13:00 97.9 71 18 145/88 (107) 95 97.9 03/27/25 12:00 Room Air* 0 21 Total Intake and Output 03/27/25 03/27/25 03/28/25 15:00 23:00 07:00 Intake Total 1050 ml 700 ml Balance 1050 ml 700 ml medications Current Medications Medications Dose Ordered Sig/Darshana Route Start Time Stop Time Status Last Admin Dose Admin Ondansetron HCl 4 mg Q4HP PRN IV 03/27/25 15:30 Acetaminophen 650 mg Q6HP PRN PO 03/27/25 15:30 03/28/25 14:25 650 MG Metronidazole 100 ml @ 100 mls/hr Q8HR IV 03/27/25 22:00 03/28/25 14:00 100 MLS/HR Ceftriaxone Sodium 50 ml @ 100 mls/hr DAILY@09 IV 03/28/25 09:00 03/28/25 08:43 100 MLS/HR Metoclopramide HCl 10 mg Q6HPRN PRN IV 03/27/25 15:30 03/27/25 21:57 10 MG Atorvastatin Calcium 20 mg HS PO 03/28/25 22:00 Gabapentin 300 mg DAILY PO 03/28/25 10:00 03/28/25 08:44 300 MG Amlodipine Besylate 10 mg DAILY PO 03/28/25 10:00 03/28/25 08:45 10 MG Cholecalciferol 5,000 unit DAILY PO 03/28/25 10:00 03/28/25 08:43 5,000 UNIT Losartan Potassium 50 mg DAILY PO 03/28/25 10:00 03/28/25 08:44 50 MG Pantoprazole Sodium 40 mg DAILY@0600 PO 03/28/25 06:00 03/28/25 11:50 40 MG Examination General Appearance: Alert, Oriented X3, Cooperative, No acute distress HEENT: Atraumatic, PERRLA, EOMI, Mucous membrane moist/pink Respiratory: Clear to auscultation, Normal air movement Cardiovascular: Regular rate, Normal S1, Normal S2, No murmurs, no chest wall tenderness Abdominal: Mild abdominal tenderness Extremities: No clubbing, No cyanosis, No edema, Normal pulses, No tenderness/swelling Skin: No rashes, No breakdown, No significant lesion Neuro: Normal gait, Normal speech, Strength at 5/5 X4 ext, Normal tone, Sensation intact, Cranial nerves 3-12 NL, Reflexes 2+ Psych/Mental Status: Mental status NL, Mood NL laboratory and microbiology Laboratory Tests 03/28/25 05:03 Test 03/28/25 05:03 Range/Units Serum Glucose 110 H 74-106 mg/dL Labs and/or images reviewed: Labs reviewed by me, Image(s) reviewed by me Problem List/Assessment/Plan Problem List/Assessment/Plan Intractable nausea and vomiting, abdominal pain due to diverticulitis Diverticulosis in the possible diverticulitis Morbid obesity Hypertension Dyslipidemia GERD Hepatic steatosis * CT scan shows, Sigmoid diverticulosis with minimal adjacent stranding, can not exclude early diverticulitis * Patient has history of recurrent diverticulitis since five years, since 2 years has flare-up almost every 2 months * Per patient, had a colonoscopy last year, showed diverticulosis otherwise nonsignificant Plan/recommendation * Zofran and Protonix * Empiric antibiotic Rocephin and Flagyl * IV fluid * GI consulted, recommended outpatient follow up * Consulted surgery * Continue home meds DIET: Clear liquid diet GI PROPHYLAXIS:: Protonix CODE STATUS: Goal of care discussed for more than 18 minutes, full code DISPOSITION: Med/surge Patient's status and plan discussed with the patient. Case discussed with Dr. Osman. Plan discussed with: Patient, Other (RN) My Orders My Orders Orders - KI WEISS Procedure Category Date Status Time Pantoprazole Tablet PHA 03/28/25 In Process (Protonix Tablet) 06:00 * Surgical Consult CONS 03/28/25 Transmitted Date of Service: Mar 28, 2025 Billing Provider: PREMA OSMAN MD Common Visit Codes: [id number] INP/OBS CARE(HIGH) KI WEISS Mar 28, 2025 15:41 PREMA OSMAN MD Mar 31, 2025 22:16
[2025-03-28 17:00] VITALS: BP 130/86; PULSE 86; RESP 19; TEMP 97.7; O2SAT 98
[2025-03-28 20:00] VITALS: PULSE 73; RESP 17; O2SAT 99
--- NOTE | 2025-03-28 20:43 | DVHINCON2 ---
Consultation - Surgical Date Seen: Mar 28, 2025 Referring Physician Referring Physician er Reason for Consultation abd. pain History of Present Illness History of Present Illness 39-year-old male with past medical history of hypertension, hyperlipidemia, GERD, and diverticulosis, who came to the hospital with complaints of abdominal pain. Patient states he woke up this morning about 0200 with severe abdominal pain with associated nausea and vomiting. Patient states he has had a recurrent diverticulitis flare-up over the last 4-5 years. He states he has changed his diet lost weight quit smoking. He states he requires hospital visitation every several months. Currently at this time patient feels slightly better. Patient is hungry Past Medical/Surgical History Past Medical/Surgical History hypertension, hyperlipidemia, GERD, and diverticulosis, Family and Social History Family and Social History Smokes marijuana Allergies and medications Allergies: Coded Allergies: Ibuprofen (Verified Allergy, Unknown, 11/15/21) Latex (Verified Allergy, Unknown, 11/15/21) Home Meds Active Scripts Pantoprazole Sodium Sesquihydr (Pantoprazole Sodium) 40 Mg Tab, 40 MG PO DAILY for 30 Days, #30 TAB Prov:DANNA TORRES RESIDENT 12/09/23 Acetaminophen (Acetaminophen) 325 Mg Tab, 650 MG PO Q6HP PRN for 30 Days, #240 TAB Prov:DANNA TORRES RESIDENT 12/09/23 Reported Medications Losartan Potassium (Losartan Potassium) 50 Mg Tab, 1 TAB PO DAILY 03/27/25 Tramadol Hcl (Tramadol Hcl) 50 Mg Tab, 50 MG PO PRN, TAB 01/19/25 Amlodipine Besylate (Amlodipine Besylate) 10 Mg Tab, 1 TAB PO DAILY 01/18/25 Gabapentin (Gabapentin) 300 Mg Cap, 1 CAP PO DAILY 01/18/25 Atorvastatin Calcium (ATORVASTATIN CALCIUM) 20 Mg Tab, 1 TAB PO DAILY 01/18/25 [id number] Ethyl Esters (Thxyd-1-Afmj Ethyl Esters) 1 Gm Cap, 1 GM PO DAILY, CAP 07/01/24 Cholecalciferol (VITAMIN D3) 5,000 Unit Cap, 1 CAP PO DAILY 12/08/23 Review of systems Review of Systems: HEENT:Normal, CVS:Normal, RESPIRATORY:Normal, GI:Abnormal, :Normal, NEURO:Normal Examination Vital signs Vital Signs Date Time Temp Pulse Resp B/P (MAP) Pulse Ox O2 Delivery O2 Flow Rate FiO2 8/12/25 17:00 97.7 86 19 130/86 (101) 98 97.7 03/28/25 15:26 Room Air* 0 21 Medications Current Medications Medications (Trade) Dose Ordered Sig/Darshana Route PRN Reason Start Time Stop Time Status Last Admin Metronidazole 100 ml @ 100 mls/hr Q8HR IV 03/27/25 22:00 03/28/25 14:00 Ceftriaxone Sodium 50 ml @ 100 mls/hr DAILY@09 IV 03/28/25 09:00 03/28/25 08:43 Atorvastatin Calcium (Lipitor) 20 mg HS PO 03/28/25 22:00 Gabapentin (Neurontin Capsule) 300 mg DAILY PO 03/28/25 10:00 03/28/25 08:44 Pantoprazole Sodium (Protonix Tablet) 40 mg DAILY PO 03/28/25 10:00 03/28/25 08:37 DC Amlodipine Besylate (Norvasc Tablet) 10 mg DAILY PO 03/28/25 10:00 03/28/25 08:45 Cholecalciferol (Vitamin D3 Tablet) 5,000 unit DAILY PO 03/28/25 10:00 03/28/25 08:43 Losartan Potassium (Cozaar Tablet) 50 mg DAILY PO 03/28/25 10:00 03/28/25 08:44 Pantoprazole Sodium (Protonix Tablet) 40 mg DAILY@0600 PO 03/28/25 06:00 03/28/25 11:50 Laboratory Labs Test 03/28/25 05:03 03/27/25 14:09 Range/Units White Blood Count 15.4 H 4.4-10.8 10^3/uL Red Blood Count 5.23 4.5-5.90 10^6/uL Hemoglobin 15.9 13.5-17.5 g/dL Hematocrit 45.1 41.0-53.0 % Mean Corpuscular Volume 86.2 80.0-100.0 fL Mean Corpuscular Hemoglobin 30.3 28.0-32.0 pg Mean Corpuscular Hemoglobin Concent 35.2 32.0-36.0 g/dL Red Cell Distribution Width 13.8 11.8-14.3 % Platelet Count 230 140-450 10^3/uL Mean Platelet Volume 9.1 6.9-10.8 fL Neutrophils (%) (Auto) 78.9 37.0-80.0 % Lymphocytes (%) (Auto) 14.3 10.0-50.0 % Monocytes (%) (Auto) 6.6 0.0-12.0 % Eosinophils (%) (Auto) 0.0 0.0-7.0 % Basophils (%) (Auto) 0.2 0.0-2.0 % Neutrophils # (Auto) 12.2 H 1.6-8.6 10 ^3/uL Lymphocytes # (Auto) 2.2 0.4-5.4 10 ^3/uL Monocytes # (Auto) 1.0 0-1.3 10 ^3/uL Eosinophils # (Auto) 0 0-0.8 10 ^3/uL Basophils # (Auto) 0 0-0.2 10 ^3/uL Nucleated Red Blood Cells 0.0 % Sodium Level 139 136-145 mmol/L Potassium Level 3.4 L 3.5-5.1 mmol/L Chloride Level 103 98-107 mmol/L Carbon Dioxide Level 23 20-31 mmol/L Anion Gap 13 5-15 Blood Urea Nitrogen 9 9-23 mg/dL Creatinine 1.10 0.700-1.30 mg/dL Glomerular Filtration Rate Calc 86 >90 mL/min BUN/Creatinine Ratio 8.2 L 10.0-20.0 Serum Glucose 110 H 74-106 mg/dL Calcium Level 9.4 8.7-10.4 mg/dL Magnesium Level 1.8 1.6-2.6 mg/dL Total Bilirubin 0.7 0.2-1.0 mg/dL Aspartate Amino Transferase (AST) 25 13-40 U/L Alanine Aminotransferase (ALT) 30 7-40 U/L Alkaline Phosphatase 58 46-116 U/L Total Protein 7.2 5.7-8.2 g/dL Albumin 4.8 3.2-4.8 g/dL Urine Color Colorless Yellow Urine Clarity Clear Clear Urine pH 7.0 5.0-9.0 Urine Specific [place] 1.018 1.001-1.035 Urine Protein Negative Negative Urine Ketones Trace Negative Urine Blood Negative Negative /uL Urine Nitrite Negative Negative Urine Bilirubin Negative Negative Urine Urobilinogen Normal Negative mg/dL Urine Leukocyte Esterase Negative Negative /uL Urine RBC <1 0 - 3 /hpf Urine Microscopic WBC 0-3 /HPF Urine Squamous Epithelial Cells Few <5 /hpf Urine Bacteria None seen None Seen /hpf Urine Glucose Normal Normal mg/dL Exam: CT CT AB PEL WITH IV CON ONLY History: abdominal pain COMPARISON: CT CT ABD PELVIS W CON-ORAL IV on DOS: 01/21/25, CT CT AB PEL WO CON-NO ORAL OR IV on DOS: 01/18/25, CT CT AB PEL WO CON-NO ORAL OR IV on DOS: 06/30/24 Technique: Multidetector spiral CT of the abdomen and pelvis was performed from lung bases to pubic symphysis. Intravenous contrast was administered during this examination. Portal venous imaging was obtained. Axial, coronal and sagittal multiplanar reformats were performed by the technologist on a separate workstation. Radiation Dose : Abdomen/Pelvis: CTDIvol 26.84 mGy, DLP 1824.86 mGy*cm. CONTRAST: Type of contrast: Omni 300 Contrast injected: 100 mL Findings: Lung Bases: No acute or significant lung base finding. Normal heart size. No pleural or pericardial effusion. Liver: Diffuse hepatic steatosis. Gallbladder and biliary Tree: Unremarkable Spleen: Unremarkable Pancreas: The pancreas is normal in appearance without focal lesions or abnormal enhancement. Adrenal Glands: Unremarkable Kidneys: No hydronephrosis. Subcentimeter right renal cyst. Bladder: Unremarkable Bowel: The stomach is grossly normal in appearance. Small bowel and colon are normal in caliber and distribution. Normal appendix is visualized in the right lower quadrant without findings of appendicitis. Sigmoid diverticulosis with minimal adjacent stranding. Ascites: Absent Lymphadenopathy: No mesenteric, retroperitoneal or periportal lymphadenopathy. Abdominal wall and Mesentery: Unremarkable. Vasculature: The visualized abdominal aorta is normal in size and caliber. Abdominal and pelvic vessels demonstrate normal enhancement. Pelvic Organs: Unremarkable Musculoskeletal: No aggressive focal bony lesions, acute fractures or dislocation. IMPRESSION: 1. Sigmoid diverticulosis with minimal adjacent stranding, can not exclude early diverticulitis. Clinical correlation and continued follow-up is recommended. 2. Diffuse hepatic steatosis. Subcentimeter right renal cysts. Radiation optimization: All CT scans at this facility use at least one of these dose optimization techniques: Automated exposure control mA and/or kV adjustment per patient size (includes targeted exams where dose is matched to clinical indication) or iterative reconstruction. Examination: GENERAL:Normal, HEENT:Normal, NECK:Normal, LUNGS:Normal, CVS:Normal, ABDOMEN:Abnormal (Mild tenderness in the left lower quadrant. No rebound no guarding), SKIN:Normal, NEURO:Normal, :Normal Problem List/Assessment/Plan Problems: (1) Diverticular disease (2) Intractable abdominal pain Assessment and Plan Patient with abdominal pain CAT scan consistent with diverticulitis with a white count elevated. Recommend NPO IV fluids IV antibiotics We will continue to follow closely Plan discussed with Plan discussed with: Patient Visit Coding Surgery Date of Service if different f: Mar 28, 2025 Billing Provider: HUYEN HUSSEIN Jr., MD Surgery Visit Codes: 01915 - INP CONSULT <80 MIN HUYEN HUSSEIN Jr., MD Mar 28, 2025 20:42
[2025-03-28 21:00] VITALS: BP 155/111; PULSE 73; RESP 17; TEMP 98.7; O2SAT 99
[2025-03-28] MEDS ORDERED: MORPHINE SULFATE INJ 2 MG/ml SYRG IV ONE (21:00)
[2025-03-28] MEDS: HYDROcodone-ACET 5/325MG TAB PO ONE (21:41)
[2025-03-28] MEDS: ATORVASTATIN 20 MG TAB PO SCH (21:42)
[2025-03-29] VITALS (7 sets, daily range): BP systolic 120–194; BP diastolic 87–142; PULSE 74–110; RESP 16–21; TEMP 98.3–99.3; O2SAT 97–99
[2025-03-29] MEDS: ONDANSETRON HCL 4 MG/2 ML VIAL IV PRN (05:16)
[2025-03-29] MEDS: MORPHINE SULFATE INJ 2 MG/ml SYRG IV ONE (05:34)
[2025-03-29] MEDS ORDERED: METOCLOPRAMIDE HCL 5MG/ml INJ 2ml VIAL IV PRN (06:30)
[2025-03-29] MEDS: METOCLOPRAMIDE HCL 5MG/ml INJ 2ml VIAL IV ONE (06:40)
[2025-03-29 06:52] LABS: Hematocrit 48.3 % (41.0-53.0); Hemoglobin 17.5 g/dL (13.5-17.5); Mean Corpuscular Hemoglobin 31.5 pg (28.0-32.0); Mean Corpuscular Volume 87.1 fL (80.0-100.0); Nucleated Red Blood Cells % 0.3 %
[2025-03-29 06:58] LABS: Calcium 9.2 mg/dL (8.7-10.4); Chloride 103 mmol/L (98-107); Sodium 139 mmol/L (136-145)
[2025-03-29 06:59] LABS: Anion Gap 13 (5-15); Carbon Dioxide 23 mmol/L (20-31)
[2025-03-29 07:00] LABS: Potassium 3.0 mmol/L (3.5-5.1)
[2025-03-29 07:04] LABS: BUN/Creatinine Ratio 9.8 (10.0-20.0); Blood Urea Nitrogen 13 mg/dL (9-23); Glucose 100 mg/dL (74-106)
[2025-03-29] MEDS: KETOROLAC TROMETH 30 MG/ML 1ML VIAL IV ONE (07:48)
[2025-03-29] MEDS: ACETAMINOPHEN 325 MG TAB PO SCH (07:54)
[2025-03-29] MEDS: KETOROLAC TROMETH 30 MG/ML 1ML VIAL IV PRN (08:32)
[2025-03-29] MEDS ORDERED: HYOSCYAMINE SULF 0.125 MG ODT TAB PO PRN (09:00)
[2025-03-29] MEDS: SODIUM CHLORIDE 0.9% 1,000 ML IV ONE (09:47)
[2025-03-29] MEDS: MAGNESIUM SULFATE 1GM/100ML 100 ML IV ONE (09:47)
[2025-03-29] MEDS: HYOSCYAMINE SULF 0.125 MG ODT TAB PO ONE (09:48)
[2025-03-29] MEDS: POTASSIUM CHLORIDE 60 MEQ, LIDOCAINE 1% (LOCAL ANESTH.) 6 ML in SODIUM CHL 0.9% 500 ML IV ONE (10:24)
--- NOTE | 2025-03-29 10:35 | DVHINCON2 ---
Date of service: Mar 29, 2025 Family History: Diabetes mellitus G8 MOTHER FHx: bipolar disorder G8 MOTHER FHx: seizures G8 MOTHER Hypertension G8 MOTHER Allergies: Coded Allergies: Ibuprofen (Verified Allergy, Unknown, 11/15/21) Latex (Verified Allergy, Unknown, 11/15/21) Home Meds Active Scripts Pantoprazole Sodium Sesquihydr (Pantoprazole Sodium) 40 Mg Tab, 40 MG PO DAILY for 30 Days, #30 TAB Prov:DANNA TORRES RESIDENT 12/09/23 Acetaminophen (Acetaminophen) 325 Mg Tab, 650 MG PO Q6HP PRN for 30 Days, #240 TAB Prov:BRIANDANNA RESIDENT 12/09/23 Reported Medications Losartan Potassium (Losartan Potassium) 50 Mg Tab, 1 TAB PO DAILY 03/27/25 Tramadol Hcl (Tramadol Hcl) 50 Mg Tab, 50 MG PO PRN, TAB 01/19/25 Amlodipine Besylate (Amlodipine Besylate) 10 Mg Tab, 1 TAB PO DAILY 01/18/25 Gabapentin (Gabapentin) 300 Mg Cap, 1 CAP PO DAILY 01/18/25 Atorvastatin Calcium (ATORVASTATIN CALCIUM) 20 Mg Tab, 1 TAB PO DAILY 01/18/25 [id number]-9-[id number] Ethyl Esters (Rplda-4-Utnj Ethyl Esters) 1 Gm Cap, 1 GM PO DAILY, CAP 07/01/24 Cholecalciferol (VITAMIN D3) 5,000 Unit Cap, 1 CAP PO DAILY 12/08/23 Current Medications Current Medications Medications (Trade) Dose Ordered Sig/Darshana Route PRN Reason Start Time Stop Time Status Last Admin Atorvastatin Calcium (Lipitor) 20 mg HS PO 03/28/25 22:00 03/28/25 21:42 Metoclopramide HCl (Reglan Injection) 5 mg Q6HPRN PRN IV NAUSEA / VOMITING 03/29/25 06:30 Acetaminophen (Tylenol Tablet) 650 mg Q6HR PO 03/29/25 06:45 03/29/25 07:54 Ketorolac Tromethamine (Toradol Injection) 15 mg Q6HPRN PRN IV MODERATE PAIN (4-6 PAIN SCALE) 03/29/25 06:45 04/03/25 06:44 03/29/25 08:32 Hyoscyamine (Hyoscyamine ORAL DISSOLVING TAB) 0.125 mg Q4HPRN PRN PO FOR STOMACH DISTRESS 03/29/25 09:00 Pantoprazole Sodium (Protonix) 40 mg DAILY IV 03/30/25 10:00 UNV Vital Signs Vital Signs Date Time Temp Pulse Resp B/P (MAP) Pulse Ox O2 Delivery O2 Flow Rate FiO2 03/29/25 08:23 98.7 92 21 181/105 (130) 98 98.7 03/29/25 07:57 Room Air* 0 21 Labs/Diagnostic Data Labs Test 03/29/25 05:34 03/28/25 05:03 03/27/25 14:09 Range/Units White Blood Count 12.4 H 4.4-10.8 10^3/uL Red Blood Count 5.55 4.5-5.90 10^6/uL Hemoglobin 17.5 13.5-17.5 g/dL Hematocrit 48.3 41.0-53.0 % Mean Corpuscular Volume 87.1 80.0-100.0 fL Mean Corpuscular Hemoglobin 31.5 28.0-32.0 pg Mean Corpuscular Hemoglobin Concent 36.1 H 32.0-36.0 g/dL Red Cell Distribution Width 13.6 11.8-14.3 % Platelet Count 216 140-450 10^3/uL Mean Platelet Volume 9.4 6.9-10.8 fL Neutrophils (%) (Auto) 60.8 37.0-80.0 % Lymphocytes (%) (Auto) 31.4 10.0-50.0 % Monocytes (%) (Auto) 7.4 0.0-12.0 % Eosinophils (%) (Auto) 0.1 0.0-7.0 % Basophils (%) (Auto) 0.3 0.0-2.0 % Neutrophils # (Auto) 7.6 1.6-8.6 10 ^3/uL Lymphocytes # (Auto) 3.9 0.4-5.4 10 ^3/uL Monocytes # (Auto) 0.9 0-1.3 10 ^3/uL Eosinophils # (Auto) 0 0-0.8 10 ^3/uL Basophils # (Auto) 0 0-0.2 10 ^3/uL Nucleated Red Blood Cells 0.3 % Sodium Level 139 136-145 mmol/L Potassium Level 3.0 L 3.5-5.1 mmol/L Chloride Level 103 98-107 mmol/L Carbon Dioxide Level 23 20-31 mmol/L Anion Gap 13 5-15 Blood Urea Nitrogen 13 9-23 mg/dL Creatinine 1.33 H 0.700-1.30 mg/dL Glomerular Filtration Rate Calc 69 >90 mL/min BUN/Creatinine Ratio 9.8 L 10.0-20.0 Serum Glucose 100 74-106 mg/dL Calcium Level 9.2 8.7-10.4 mg/dL Magnesium Level 1.8 1.6-2.6 mg/dL Total Bilirubin 0.7 0.2-1.0 mg/dL Aspartate Amino Transferase (AST) 25 13-40 U/L Alanine Aminotransferase (ALT) 30 7-40 U/L Alkaline Phosphatase 58 46-116 U/L Total Protein 7.2 5.7-8.2 g/dL Albumin 4.8 3.2-4.8 g/dL Urine Color Colorless Yellow Urine Clarity Clear Clear Urine pH 7.0 5.0-9.0 Urine Specific [place] 1.018 1.001-1.035 Urine Protein Negative Negative Urine Ketones Trace Negative Urine Blood Negative Negative /uL Urine Nitrite Negative Negative Urine Bilirubin Negative Negative Urine Urobilinogen Normal Negative mg/dL Urine Leukocyte Esterase Negative Negative /uL Urine RBC <1 0 - 3 /hpf Urine Microscopic WBC 0-3 /HPF Urine Squamous Epithelial Cells Few <5 /hpf Urine Bacteria None seen None Seen /hpf Urine Glucose Normal Normal mg/dL Assessment severe abdominal pain and persistent vomiting, acute diverticulitis, abdomen soft, non distended tender in the periumbilical area, needs ngt and complete bowel rest, no indication for emergency surgical intervention. Plan discussed with: Patient, Other YAHAIRA VERAS MD Mar 29, 2025 10:35
[2025-03-29] MEDS: PANTOPRAZOLE 40 MG/10 ML VIAL INJ IV ONE (11:39)
--- NOTE | 2025-03-29 13:38 | DVH ---
XY CHEST XRAY 1 VIEW, HISTORY: NGT PLACEMENT COMPARISON: CXR2 on DOS: 06/10/22, CHEST TWO VIEWS ROUTINE on DOS: 06/10/22, EKG on DOS: 06/10/22 CXR2 on DOS: 06/10/22, CHEST TWO VIEWS ROUTINE on DOS: 06/10/22, EKG on DOS: 06/10/22 TECHNICAL DATA: 1 view of the chest was obtained. FINDINGS: Lines and tubes: NG appears to be in the distal esophagus. Cardiomediastinal silhouette: normal Pulmonary vasculature: normal Lung expansion: normal Lung airspace: normal Lung interstitium: normal Pleura: normal Pneumothorax: no Bones: Unremarkable Other: no IMPRESSION: NG appears to be in the distal esophagus.
[2025-03-29] MEDS: LORazepam 2MG/ML-1ML VIAL IV ONE (13:58)
--- NOTE | 2025-03-29 14:32 | DVHPN2 ---
Progress Note - Dictate Date Seen: Mar 29, 2025 Has the PT tested + for MRSA If YES, has PT been informed?: No Medical Necessity Reason Pt with a Central, PICC or Fol: No Subjective Patient was having nausea and vomiting since last night and unable to take p.o. meds Surgical consult recommended an NG tube to low intermittent suction Patient is also complaining of GERD symptoms Abdominal pain is improving vital signs Vital Sign Date Time Temp Pulse Resp B/P (MAP) Pulse Ox O2 Delivery O2 Flow Rate FiO2 03/29/25 13:00 98.5 89 20 190/118 (142) 99 98.5 03/29/25 07:57 Room Air* 0 21 Total Intake and Output 03/28/25 03/28/25 03/29/25 15:00 23:00 07:00 Intake Total 50 ml 260 ml 1418 ml Balance 50 ml 260 ml 1418 ml medications Current Medications Medications Dose Ordered Sig/Darshana Route Start Time Stop Time Status Last Admin Dose Admin Ondansetron HCl 4 mg Q4HP PRN IV 03/27/25 15:30 03/29/25 09:46 4 MG Metronidazole 100 ml @ 100 mls/hr Q8HR IV 03/27/25 22:00 03/29/25 13:59 100 MLS/HR Ceftriaxone Sodium 50 ml @ 100 mls/hr DAILY@09 IV 03/28/25 09:00 03/29/25 08:32 100 MLS/HR Metoclopramide HCl 10 mg Q6HPRN PRN IV 03/27/25 15:30 03/29/25 08:31 10 MG Atorvastatin Calcium 20 mg HS PO 03/28/25 22:00 03/28/25 21:42 20 MG Gabapentin 300 mg DAILY PO 03/28/25 10:00 03/28/25 08:44 300 MG Amlodipine Besylate 10 mg DAILY PO 03/28/25 10:00 03/28/25 08:45 10 MG Cholecalciferol 5,000 unit DAILY PO 03/28/25 10:00 03/28/25 08:43 5,000 UNIT Losartan Potassium 50 mg DAILY PO 03/28/25 10:00 03/28/25 08:44 50 MG Metoclopramide HCl 5 mg Q6HPRN PRN IV 03/29/25 06:30 Acetaminophen 650 mg Q6HR PO 03/29/25 06:45 03/29/25 07:54 650 MG Ketorolac Tromethamine 15 mg Q6HPRN PRN IV 03/29/25 06:45 04/03/25 06:44 03/29/25 08:32 15 MG Hyoscyamine 0.125 mg Q4HPRN PRN PO 03/29/25 09:00 Pantoprazole Sodium 40 mg DAILY IV 03/30/25 10:00 objective General: NAD, AAOX3 Chest: lung duke clear to auscultation Heart: RRR, no murmur Abdomen: non-distended, mild lower abdominal tenderness to palpation, +BS laboratory and microbiology Laboratory Tests 03/29/25 05:34 Test 03/29/25 05:34 Range/Units Serum Glucose 100 74-106 mg/dL Problems(with codes): (1) Diverticular disease (2) Diverticulitis of intestine (3) Intractable abdominal pain (4) Vomiting (5) Non-specific colitis (6) Acute abdominal pain (7) Cyclical vomiting syndrome Prognosis Plan Change Protonix to IV Discontinue IV Flagyl as that might be causing nausea and vomiting Zofran as needed for nausea and vomiting Continue to monitor labs Supportive care Surgical follow up appreciated Plan discussed with: Patient GERARDO SUAZO MD Mar 29, 2025 14:32
--- NOTE | 2025-03-29 14:52 | DVH ---
CHEST RADIOGRAPH Indication: NGT PLACEMENT Technique: Single frontal view of the chest was obtained Comparison: XY CHEST XRAY 1 VIEW on DOS: 03/29/25, CXR2 on DOS: 06/10/22, CHEST TWO VIEWS ROUTINE on D OS: 06/10/22, EKG on DOS: 06/10/22, EKG on DOS: 06/10/22 FINDINGS: Lines and Tubes: None Lungs: No focal consolidation. Pleura: No effusion. No pneumothorax. Cardiomediastinal contours: Unremarkable Bones: No acute osseous abnormality. IMPRESSION: No acute cardiopulmonary disease. NG tube tip in the stomach
--- NOTE | 2025-03-29 15:05 | DVHPNRES ---
Progress Note Date Seen: Mar 29, 2025 Resident Creating Document: KI WEISS ABDULKADIR Has the PT tested + for MRSA If YES, has PT been informed?: No Medical Necessity Reason Pt with a Central, PICC or Fol: No Subjective Review of Systems Patient seen and examined at the bedside. Patient is still feeling of nausea and vomiting and abdominal pain. Surgery consulted, recommended medical management and NG tube placement. Objective vital signs Vital Sign Date Time Temp Pulse Resp B/P (MAP) Pulse Ox O2 Delivery O2 Flow Rate FiO2 03/29/25 13:00 98.5 89 20 190/118 (142) 99 98.5 03/29/25 07:57 Room Air* 0 21 Total Intake and Output 03/28/25 03/28/25 03/29/25 15:00 23:00 07:00 Intake Total 50 ml 260 ml 1418 ml Balance 50 ml 260 ml 1418 ml medications Current Medications Medications Dose Ordered Sig/Darshana Route Start Time Stop Time Status Last Admin Dose Admin Ondansetron HCl 4 mg Q4HP PRN IV 03/27/25 15:30 03/29/25 09:46 4 MG Metronidazole 100 ml @ 100 mls/hr Q8HR IV 03/27/25 22:00 03/29/25 13:59 100 MLS/HR Ceftriaxone Sodium 50 ml @ 100 mls/hr DAILY@09 IV 03/28/25 09:00 03/29/25 08:32 100 MLS/HR Metoclopramide HCl 10 mg Q6HPRN PRN IV 03/27/25 15:30 03/29/25 08:31 10 MG Atorvastatin Calcium 20 mg HS PO 03/28/25 22:00 03/28/25 21:42 20 MG Gabapentin 300 mg DAILY PO 03/28/25 10:00 03/28/25 08:44 300 MG Amlodipine Besylate 10 mg DAILY PO 03/28/25 10:00 03/28/25 08:45 10 MG Cholecalciferol 5,000 unit DAILY PO 03/28/25 10:00 03/28/25 08:43 5,000 UNIT Losartan Potassium 50 mg DAILY PO 03/28/25 10:00 03/28/25 08:44 50 MG Metoclopramide HCl 5 mg Q6HPRN PRN IV 03/29/25 06:30 Acetaminophen 650 mg Q6HR PO 03/29/25 06:45 03/29/25 07:54 650 MG Ketorolac Tromethamine 15 mg Q6HPRN PRN IV 03/29/25 06:45 04/03/25 06:44 03/29/25 08:32 15 MG Hyoscyamine 0.125 mg Q4HPRN PRN PO 03/29/25 09:00 Pantoprazole Sodium 40 mg DAILY IV 03/30/25 10:00 Examination General Appearance: Alert, Oriented X3, Cooperative, No acute distress HEENT: Atraumatic, PERRLA, EOMI, Mucous membrane moist/pink Respiratory: Clear to auscultation, Normal air movement Cardiovascular: Regular rate, Normal S1, Normal S2, No murmurs, no chest wall tenderness Abdominal: Mild abdominal tenderness Extremities: No clubbing, No cyanosis, No edema, Normal pulses, No tenderness/swelling Skin: No rashes, No breakdown, No significant lesion Neuro: Normal gait, Normal speech, Strength at 5/5 X4 ext, Normal tone, Sensation intact, Cranial nerves 3-12 NL, Reflexes 2+ Psych/Mental Status: Mental status NL, Mood NL laboratory and microbiology Laboratory Tests 03/29/25 05:34 Test 03/29/25 05:34 Range/Units Serum Glucose 100 74-106 mg/dL Labs and/or images reviewed: Labs reviewed by me, Image(s) reviewed by me Problem List/Assessment/Plan Problem List/Assessment/Plan Intractable nausea and vomiting, abdominal pain due to diverticulitis Diverticulosis in the possible diverticulitis Morbid obesity Hypertension Dyslipidemia GERD Hepatic steatosis * CT scan shows, Sigmoid diverticulosis with minimal adjacent stranding, can not exclude early diverticulitis * Patient has history of recurrent diverticulitis since five years, since 2 years has flare-up almost every 2 months * Per patient, had a colonoscopy last year, showed diverticulosis otherwise nonsignificant Plan/recommendation * Zofran and Protonix * Empiric antibiotic Rocephin and Flagyl * IV fluid * GI consulted, recommended outpatient follow up * Consulted surgery, recommended adjuvant, bowel raised and NG tube placement * Continue home meds DIET: Clear liquid diet GI PROPHYLAXIS:: Protonix CODE STATUS: Goal of care discussed for more than 18 minutes, full code DISPOSITION: Med/surge Patient's status and plan discussed with the patient. Case discussed with Dr. Osman. Plan discussed with: Patient, Other (RN) My Orders My Orders Orders - KI WEISS RESRIKI Procedure Category Date Status Time Metoclopramide PHA 03/29/25 In Process Injection (Reglan 06:30 Npo (Nothing By DIET 03/29/25 Transmitted Mouth) Diet Breakfast Acetaminophen Tablet PHA 03/29/25 In Process (Tylenol Tablet) 06:45 Ketorolac Injection PHA 03/29/25 In Process (Toradol Injection) 06:45 * Surgical Consult CONS 03/29/25 Transmitted Hyoscyamine Sulfate PHA 03/29/25 In Process Tablet (Hyoscyamine 09:00 Pantoprazole PHA 03/30/25 In Process (Protonix) 10:00 Date of Service: Mar 29, 2025 Billing Provider: PREMA OSMAN MD Common Visit Codes: [id number] INP/OBS CARE(HIGH) KI WEISS RESDIENT Mar 29, 2025 15:05 PREMA OSMAN MD Mar 31, 2025 22:32
[2025-03-29] MEDS: LABETALOL HCL 20 MG/4 ML VL IV ONE (16:55)
[2025-03-29] MEDS ORDERED: LABETALOL HCL 20 MG/4 ML VL IV ONE (18:00)
[2025-03-30] VITALS (8 sets, daily range): BP systolic 118–149; BP diastolic 84–98; PULSE 79–97; RESP 16–20; TEMP 97.6–99; O2SAT 96–99
[2025-03-30] MEDS: LORazepam 2MG/ML-1ML VIAL IM ONE (00:52)
[2025-03-30 06:15] LABS: Hematocrit 46.6 % (41.0-53.0); Hemoglobin 16.2 g/dL (13.5-17.5); Mean Corpuscular Hemoglobin 30.2 pg (28.0-32.0); Mean Corpuscular Volume 86.9 fL (80.0-100.0); Nucleated Red Blood Cells % 0.1 %
[2025-03-30 06:35] LABS: Anion Gap 10 (5-15); Calcium 9.0 mg/dL (8.7-10.4); Carbon Dioxide 26 mmol/L (20-31); Chloride 103 mmol/L (98-107); Potassium 3.5 mmol/L (3.5-5.1); Sodium 139 mmol/L (136-145)
[2025-03-30 06:41] LABS: BUN/Creatinine Ratio 9.0 (10.0-20.0); Blood Urea Nitrogen 12 mg/dL (9-23); Glucose 97 mg/dL (74-106)
[2025-03-30] MEDS: PANTOPRAZOLE 40 MG/10 ML VIAL INJ IV SCH (10:11)
--- NOTE | 2025-03-30 13:26 | DVHPN2 ---
Subjective Date Seen: Mar 30, 2025 Post op day Post op day: 0 Patient reports: No new complaints Nursing reports: No new complaints General: Normal HNT: Normal Cardiovascular: Normal Respiratory: Normal Gastrointestinal: Normal Genitourinary: Normal Musculoskeletal: Normal Neurological: Normal Objective Vitals Vital Sign Date Time Temp Pulse Resp B/P (MAP) Pulse Ox O2 Delivery O2 Flow Rate FiO2 03/30/25 09:00 98.7 79 17 127/98 (108) 97 98.7 03/29/25 20:00 Room Air* 0 21 Total Intake and Output 03/29/25 03/29/25 03/30/25 15:00 23:00 07:00 Intake Total 150 ml 2636 ml Output Total 1000 ml 900 ml Balance 150 ml 1636 ml -900 ml Medications Current Medications Medications Dose Ordered Sig/Darshana Route Start Time Stop Time Status Last Admin Dose Admin Ondansetron HCl 4 mg Q4HP PRN IV 03/27/25 15:30 03/29/25 09:46 4 MG Ceftriaxone Sodium 50 ml @ 100 mls/hr DAILY@09 IV 03/28/25 09:00 03/30/25 10:11 100 MLS/HR Metoclopramide HCl 10 mg Q6HPRN PRN IV 03/27/25 15:30 03/29/25 08:31 10 MG Atorvastatin Calcium 20 mg HS PO 03/28/25 22:00 03/28/25 21:42 20 MG Gabapentin 300 mg DAILY PO 03/28/25 10:00 03/28/25 08:44 300 MG Amlodipine Besylate 10 mg DAILY PO 03/28/25 10:00 03/28/25 08:45 10 MG Losartan Potassium 50 mg DAILY PO 03/28/25 10:00 03/28/25 08:44 50 MG Acetaminophen 650 mg Q6HR PO 03/29/25 06:45 03/29/25 07:54 650 MG Ketorolac Tromethamine 15 mg Q6HPRN PRN IV 03/29/25 06:45 04/03/25 06:44 03/29/25 08:32 15 MG Hyoscyamine 0.125 mg Q4HPRN PRN PO 03/29/25 09:00 Pantoprazole Sodium 40 mg DAILY IV 03/30/25 10:00 03/30/25 10:11 40 MG General: Normal, Well developed Head/Eyes: Normal ENT: Normal Neck: Normal, Supple Lungs: Normal Cardiovascular: Normal, Regular rate and rhythm Abdominal: Normal, Soft Musculoskeletal: Normal Extremities: Normal, No clubbing, No cyanosis, No edema Neurological: Normal, CNII-XII Intact Labs and Microbiology Laboratory Tests 03/30/25 05:24 Test 03/30/25 05:24 Range/Units Serum Glucose 97 74-106 mg/dL Ass/Plan Labs and/or images reviewed: Labs reviewed by me, Image(s) reviewed by me Problem List Intractable nausea and vomiting, abdominal pain due to diverticulitis Diverticulosis in the possible diverticulitis Morbid obesity Hypertension Dyslipidemia GERD Hepatic steatosis * CT scan shows, Sigmoid diverticulosis with minimal adjacent stranding, can not exclude early diverticulitis * Patient has history of recurrent diverticulitis since five years, since 2 years has flare-up almost every 2 months * Per patient, had a colonoscopy last year, showed diverticulosis otherwise nonsignificant Plan/recommendation * Zofran and Protonix * Empiric antibiotic Rocephin and Flagyl * IV fluid * GI consulted, recommended outpatient follow up * Consulted surgery, recommended adjuvant, bowel raised and NG tube placement * Continue home meds DIET: Clear liquid diet GI PROPHYLAXIS:: Protonix CODE STATUS: Goal of care discussed for more than 18 minutes, full code DISPOSITION: Med/surge Patient's status and plan discussed with the patient. Case discussed with Dr. Cee. Assessment/Plan no new complaints patient abdomen soft , non distended, non tender denies nausea and vomiting he states every time he is given Flagyl he becomes nausea and vomits today he has no abdominal pain feels alot better than yesterday Plan: NPO except ice chips continue NGT to LCS continue with IV antibiotics will see patient tomorrow morning for possible removal of NGT Plan discussed with patient, patients and Dr. Simmons Visit Coding Surgery Date of Service if different f: Mar 30, 2025 Billing Provider: YAHAIRA SIMMONS MD Surgery Visit Codes: [id number] INP/OBS CARE(HIGH) BESSY BRAVO NP Mar 30, 2025 13:26
--- NOTE | 2025-03-30 18:41 | DVHPNRES ---
Progress Note Date Seen: Mar 30, 2025 Resident Creating Document: ANAHI KUNZ RESIDENT Has the PT tested + for MRSA If YES, has PT been informed?: No Medical Necessity Reason Pt with a Central, PICC or Fol: No Subjective Patient reports: No new complaints, Feels better Changes from previous H/P or p: No Changes Objective vital signs Vital Sign Date Time Temp Pulse Resp B/P (MAP) Pulse Ox O2 Delivery O2 Flow Rate FiO2 03/30/25 17:00 97.8 97 18 135/85 (102) 96 97.8 03/30/25 07:30 Room Air* 0 21 Total Intake and Output 03/29/25 03/29/25 03/30/25 15:00 23:00 07:00 Intake Total 150 ml 2636 ml Output Total 1000 ml 900 ml Balance 150 ml 1636 ml -900 ml medications Current Medications Medications Dose Ordered Sig/Darshana Route Start Time Stop Time Status Last Admin Dose Admin Ondansetron HCl 4 mg Q4HP PRN IV 03/27/25 15:30 03/29/25 09:46 4 MG Ceftriaxone Sodium 50 ml @ 100 mls/hr DAILY@09 IV 03/28/25 09:00 03/30/25 10:11 100 MLS/HR Metoclopramide HCl 10 mg Q6HPRN PRN IV 03/27/25 15:30 03/29/25 08:31 10 MG Atorvastatin Calcium 20 mg HS PO 03/28/25 22:00 03/28/25 21:42 20 MG Gabapentin 300 mg DAILY PO 03/28/25 10:00 03/28/25 08:44 300 MG Amlodipine Besylate 10 mg DAILY PO 03/28/25 10:00 03/28/25 08:45 10 MG Losartan Potassium 50 mg DAILY PO 03/28/25 10:00 03/28/25 08:44 50 MG Acetaminophen 650 mg Q6HR PO 03/29/25 06:45 03/29/25 07:54 650 MG Ketorolac Tromethamine 15 mg Q6HPRN PRN IV 03/29/25 06:45 04/03/25 06:44 03/30/25 15:38 15 MG Hyoscyamine 0.125 mg Q4HPRN PRN PO 03/29/25 09:00 Pantoprazole Sodium 40 mg DAILY IV 03/30/25 10:00 03/30/25 10:11 40 MG Metronidazole 100 ml @ 100 mls/hr Q8HR IV 03/30/25 22:00 UNV Lactated Ringer's 1,000 ml @ 75 mls/hr [id number] IV 03/30/25 18:45 UNV Examination General Appearance: Alert, Oriented X3, Cooperative, No acute distress HEENT: Atraumatic, PERRLA, EOMI, Mucous membrane moist/pink, NG tube in plane Respiratory: Clear to auscultation, Normal air movement Cardiovascular: Regular rate, Normal S1, Normal S2, No murmurs, no chest wall tenderness Abdominal: Mild abdominal tenderness, on deep palpation, no guarding or surgical abdomen present Extremities: No clubbing, No cyanosis, No edema, Normal pulses, No tenderness/swelling Skin: No rashes, No breakdown, No significant lesion Neuro: Normal gait, Normal speech, Strength at 5/5 X4 ext, Normal tone, Sensation intact, Cranial nerves 3-12 NL, Reflexes 2+ Psych/Mental Status: Mental status NL, Mood NL laboratory and microbiology Laboratory Tests 03/30/25 05:24 Test 03/30/25 05:24 Range/Units Serum Glucose 97 74-106 mg/dL Labs and/or images reviewed: Labs reviewed by me, Image(s) reviewed by me Problem List/Assessment/Plan Problem List/Assessment/Plan A 39-year-old male with a history of hypertension, hyperlipidemia, GERD, and diverticulosis presented with acute abdominal pain that began at 0200, accompanied by nausea and vomiting. He reports recurrent diverticulitis flare- ups over the past 45 years, requiring frequent hospital visits, and has made lifestyle changes including dietary adjustments, weight loss, and smoking cessation. At presentation, he felt slightly improved and expressed hunger. The patient was evaluated at the bedside and continues to experience nausea, vomiting, and abdominal pain. Surgery was consulted and recommended medical management along with NG tube placement. Assessment: Acute diverticulitis, sigmoid likely history of recurrent diverticulitis since five years, since 2 years has flare-up almost every 2 months GradeII obesity Essential Hypertension Dyslipidemia GERD Hepatic steatosis Previous colonoscopy last year, showed diverticulosis otherwise unremarkable, family h/o GI malignancy -ve Marijuana use disorder, Smokes marijuana Subcentimeter right renal cysts Plan: Blood pressure target 140/90 mm Hg continue amlodipine 10 and losartan 50 mg daily Symptoms control Zofran and Protonix NG tube NPO > trial of Clear liquid diet Empiric antibiotic Rocephin and Flagyl, discharge with oral augmentin 14 days total Gentle hydration with IV fluid GI consulted, outpatient repeat colonoscopy outpatient follow up in 6 weeks, r/o mass or colon cancer Continue home meds as appropriate Overnight monitor for surgical need at med-surg level of care CBC, BMP and TSH r/o hypothyroidism, high fiber diet Recurrent diverticulitis might necessitate future colonic resection as per surgery discretion Full code. Goals of care, clinical work and plan of care needed 29 mintues. Case discussed with Dr. Osman. Plan discussed with: Patient My Orders My Orders Orders - ANAHI KUNZ Procedure Category Date Status Time Metronidazole PHA 03/30/25 Logged 500mg/100ml (Flagyl 22:00 Metronidazole PHA 03/30/25 Logged 500mg/100ml (Flagyl 18:30 Lactated Ringer's PHA 03/30/25 Logged 18:45 Date of Service: Mar 30, 2025 Billing Provider: PREMA OSMAN MD Common Visit Codes: [id number] INP/OBS CARE(HIGH) ANAHI KUNZ Mar 30, 2025 18:41 PREMA OSMAN MD Mar 31, 2025 23:23
--- NOTE | 2025-03-30 21:30 | DVHPN2 ---
Progress Note - Dictate Date Seen: Mar 30, 2025 (Late entryPatient seen at 10:00 a.m.) Has the PT tested + for MRSA If YES, has PT been informed?: No Medical Necessity Reason Pt with a Central, PICC or Fol: No Subjective Patient is feeling better today No further nausea vomiting NG tube output was 300 mL last night and about 600 minimal during the day shift however patient is taking ice chips and water Patient is also complaining of GERD symptoms Abdominal pain is improving vital signs Vital Sign Date Time Temp Pulse Resp B/P (MAP) Pulse Ox O2 Delivery O2 Flow Rate FiO2 03/30/25 17:00 97.8 97 18 135/85 (102) 96 97.8 03/30/25 07:30 Room Air* 0 21 Total Intake and Output 03/29/25 03/29/25 03/30/25 15:00 23:00 07:00 Intake Total 150 ml 2636 ml Output Total 1000 ml 900 ml Balance 150 ml 1636 ml -900 ml medications Current Medications Medications Dose Ordered Sig/Darshana Route Start Time Stop Time Status Last Admin Dose Admin Ondansetron HCl 4 mg Q4HP PRN IV 03/27/25 15:30 03/29/25 09:46 4 MG Ceftriaxone Sodium 50 ml @ 100 mls/hr DAILY@09 IV 03/28/25 09:00 03/30/25 10:11 100 MLS/HR Metoclopramide HCl 10 mg Q6HPRN PRN IV 03/27/25 15:30 03/29/25 08:31 10 MG Atorvastatin Calcium 20 mg HS PO 03/28/25 22:00 03/28/25 21:42 20 MG Gabapentin 300 mg DAILY PO 03/28/25 10:00 03/28/25 08:44 300 MG Amlodipine Besylate 10 mg DAILY PO 03/28/25 10:00 03/28/25 08:45 10 MG Losartan Potassium 50 mg DAILY PO 03/28/25 10:00 03/28/25 08:44 50 MG Acetaminophen 650 mg Q6HR PO 03/29/25 06:45 03/29/25 07:54 650 MG Ketorolac Tromethamine 15 mg Q6HPRN PRN IV 03/29/25 06:45 04/03/25 06:44 03/30/25 15:38 15 MG Hyoscyamine 0.125 mg Q4HPRN PRN PO 03/29/25 09:00 Pantoprazole Sodium 40 mg DAILY IV 03/30/25 10:00 03/30/25 10:11 40 MG Metronidazole 100 ml @ 100 mls/hr Q8HR IV 03/31/25 06:00 Lactated Ringer's 1,000 ml @ 75 mls/hr [id number] IV 03/30/25 18:45 objective General: NAD, AAOX3; NGT in place Chest: lung duke clear to auscultation Heart: RRR, no murmur Abdomen: non-distended, mild lower abdominal tenderness to palpation, +BS laboratory and microbiology Laboratory Tests 03/30/25 05:24 Test 03/30/25 05:24 Range/Units Serum Glucose 97 74-106 mg/dL Problems(with codes): (1) Diverticulitis of intestine (2) Non-specific colitis (3) Acute abdominal pain (4) Cyclical vomiting syndrome (5) Diverticular disease Prognosis Plan Protonix 40 mg IV q.12 hours Zofran as needed for pain Patient stated he has moved his bowels although no bowel movement is recorded I told the patient that the nausea could be related to Flagyl and he would like to discontinue that medicine If the patient is clinically stable a in a.m. consider discontinuation of the NG tube and starting him on a clear liquid diet Outpatient follow up with GI to discuss elective screening colonoscopy and Outpatient follow up with surgery to discuss elective sigmoid colectomy Plan discussed with: Patient GERARDO SUAZO MD Mar 30, 2025 21:29
[2025-03-30] MEDS: LACTATED RINGER'S 1,000 ML IV SCH (22:03)
[2025-03-31 05:00] VITALS: BP 118/83; PULSE 80; RESP 20; TEMP 97.5; O2SAT 100
[2025-03-31] MEDS: SODIUM CHLORIDE 0.9% 1,000 ML IV ONE (06:56)
[2025-03-31 07:30] VITALS: PULSE 80; RESP 20; O2SAT 100
[2025-03-31 08:43] VITALS: BP 134/89; PULSE 101; RESP 16; TEMP 97.4; O2SAT 100
--- NOTE | 2025-03-31 11:12 | DVHPN2 ---
Subjective Date Seen: Mar 31, 2025 Post op day Post op day: 0 Patient reports: No new complaints, Feels better Nursing reports: No new complaints General: Normal HNT: Normal Cardiovascular: Normal Respiratory: Normal Gastrointestinal: Normal Genitourinary: Normal Musculoskeletal: Normal Neurological: Normal Objective Vitals Vital Sign Date Time Temp Pulse Resp B/P (MAP) Pulse Ox O2 Delivery O2 Flow Rate FiO2 03/31/25 08:43 97.4 101 16 134/89 (104) 100 97.4 03/31/25 07:30 Room Air* 0 21 Total Intake and Output 03/30/25 03/30/25 03/31/25 15:00 23:00 07:00 Intake Total 100 ml 0 ml 0 ml Output Total 350 ml 250 ml Balance 100 ml -350 ml -250 ml Medications Current Medications Medications Dose Ordered Sig/Darshana Route Start Time Stop Time Status Last Admin Dose Admin Ondansetron HCl 4 mg Q4HP PRN IV 03/27/25 15:30 03/29/25 09:46 4 MG Ceftriaxone Sodium 50 ml @ 100 mls/hr DAILY@09 IV 03/28/25 09:00 03/31/25 08:24 100 MLS/HR Metoclopramide HCl 10 mg Q6HPRN PRN IV 03/27/25 15:30 03/29/25 08:31 10 MG Atorvastatin Calcium 20 mg HS PO 03/28/25 22:00 03/28/25 21:42 20 MG Gabapentin 300 mg DAILY PO 03/28/25 10:00 03/28/25 08:44 300 MG Amlodipine Besylate 10 mg DAILY PO 03/28/25 10:00 03/28/25 08:45 10 MG Losartan Potassium 50 mg DAILY PO 03/28/25 10:00 03/28/25 08:44 50 MG Acetaminophen 650 mg Q6HR PO 03/29/25 06:45 03/29/25 07:54 650 MG Ketorolac Tromethamine 15 mg Q6HPRN PRN IV 03/29/25 06:45 04/03/25 06:44 03/30/25 23:18 15 MG Hyoscyamine 0.125 mg Q4HPRN PRN PO 03/29/25 09:00 Pantoprazole Sodium 40 mg DAILY IV 03/30/25 10:00 03/31/25 08:24 40 MG Metronidazole 100 ml @ 100 mls/hr Q8HR IV 03/31/25 06:00 Lactated Ringer's 1,000 ml @ 75 mls/hr [id number] IV 03/30/25 18:45 03/30/25 22:03 75 MLS/HR General: Normal, Well developed Head/Eyes: Normal ENT: Normal Neck: Normal, Supple Lungs: Normal Cardiovascular: Normal, Regular rate and rhythm Abdominal: Normal, Soft Musculoskeletal: Normal Extremities: Normal, No clubbing, No cyanosis, No edema Neurological: Normal, CNII-XII Intact Labs and Microbiology Laboratory Tests 03/30/25 05:24 Test 03/30/25 05:24 Range/Units Serum Glucose 97 74-106 mg/dL Ass/Plan Labs and/or images reviewed: Labs reviewed by me, Image(s) reviewed by me Problem List A 39-year-old male with a history of hypertension, hyperlipidemia, GERD, and diverticulosis presented with acute abdominal pain that began at 0200, accompanied by nausea and vomiting. He reports recurrent diverticulitis flare- ups over the past 45 years, requiring frequent hospital visits, and has made lifestyle changes including dietary adjustments, weight loss, and smoking cessation. At presentation, he felt slightly improved and expressed hunger. The patient was evaluated at the bedside and continues to experience nausea, vomiting, and abdominal pain. Surgery was consulted and recommended medical management along with NG tube placement. Assessment: Acute diverticulitis, sigmoid likely history of recurrent diverticulitis since five years, since 2 years has flare-up almost every 2 months GradeII obesity Essential Hypertension Dyslipidemia GERD Hepatic steatosis Previous colonoscopy last year, showed diverticulosis otherwise unremarkable, family h/o GI malignancy -ve Marijuana use disorder, Smokes marijuana Subcentimeter right renal cysts Plan: Blood pressure target 140/90 mm Hg continue amlodipine 10 and losartan 50 mg daily Symptoms control Zofran and Protonix NG tube NPO > trial of Clear liquid diet Empiric antibiotic Rocephin and Flagyl, discharge with oral augmentin 14 days total Gentle hydration with IV fluid GI consulted, outpatient repeat colonoscopy outpatient follow up in 6 weeks, r/o mass or colon cancer Continue home meds as appropriate Overnight monitor for surgical need at med-surg level of care CBC, BMP and TSH r/o hypothyroidism, high fiber diet Recurrent diverticulitis might necessitate future colonic resection as per surgery discretion Full code. Goals of care, clinical work and plan of care needed 29 mintues. Case discussed with Dr. Cee. Assessment/Plan no new complaints patient abdomen soft , non distended, non tender denies nausea and vomiting he states every time he is given Flagyl he becomes nausea and vomits today he has no abdominal pain feels a lot better than yesterday Plan: NPO except ice chips continue NGT to LCS continue with IV antibiotics will see patient tomorrow morning for possible removal of NGT 03/31/25 no new complaints denies pain , abdomen soft , non distended, non tender removed NGT denies nausea or vomiting Plan: NGT removal Full liquid diet call surgery if abdominal pain returns Prognosis: Good Plan discussed with patient Visit Coding Surgery Date of Service if different f: Mar 31, 2025 Billing Provider: YAHAIRA VERAS MD Surgery Visit Codes: [id number] INP/OBS CARE(HIGH) BESSY BRAVO [employer] Mar 31, 2025 11:12
[2025-03-31 12:19] VITALS: BP 127/80; PULSE 89; RESP 16; TEMP 97.1; O2SAT 100
[2025-03-31 12:23] VITALS: BP 127/80; PULSE 94; RESP 16; TEMP 97.1; O2SAT 100
--- NOTE | 2025-03-31 18:30 | DVHDSRES ---
Discharge Summary Date of Admission Resident Creating Document: ANAHI KUNZ RESIDENT Mar 27, 2025 at 15:20 Date of Discharge: Mar 31, 2025 Labs/Diagnostic Data: Laboratory Results Test 03/30/25 05:24 03/28/25 05:03 03/27/25 14:09 White Blood Count 14.4 10^3/uL (4.4-10.8) Red Blood Count 5.37 10^6/uL (4.5-5.90) Hemoglobin 16.2 g/dL (13.5-17.5) Hematocrit 46.6 % (41.0-53.0) Mean Corpuscular Volume 86.9 fL (80.0-100.0) Mean Corpuscular Hemoglobin 30.2 pg (28.0-32.0) Mean Corpuscular Hemoglobin Concent 34.7 g/dL (32.0-36.0) Red Cell Distribution Width 13.5 % (11.8-14.3) Platelet Count 222 10^3/uL (140-450) Mean Platelet Volume 9.1 fL (6.9-10.8) Neutrophils (%) (Auto) 65.7 % (37.0-80.0) Lymphocytes (%) (Auto) 25.7 % (10.0-50.0) Monocytes (%) (Auto) 8.2 % (0.0-12.0) Eosinophils (%) (Auto) 0.1 % (0.0-7.0) Basophils (%) (Auto) 0.3 % (0.0-2.0) Neutrophils # (Auto) 9.4 10 ^3/uL (1.6-8.6) Lymphocytes # (Auto) 3.7 10 ^3/uL (0.4-5.4) Monocytes # (Auto) 1.2 10 ^3/uL (0-1.3) Eosinophils # (Auto) 0 10 ^3/uL (0-0.8) Basophils # (Auto) 0 10 ^3/uL (0-0.2) Nucleated Red Blood Cells 0.1 % Sodium Level 139 mmol/L (136-145) Potassium Level 3.5 mmol/L (3.5-5.1) Chloride Level 103 mmol/L (98-107) Carbon Dioxide Level 26 mmol/L (20-31) Anion Gap 10 (5-15) Blood Urea Nitrogen 12 mg/dL (9-23) Creatinine 1.34 mg/dL (0.700-1.30) Glomerular Filtration Rate Calc 68 mL/min (>90) BUN/Creatinine Ratio 9.0 (10.0-20.0) Serum Glucose 97 mg/dL (74-106) Calcium Level 9.0 mg/dL (8.7-10.4) Magnesium Level 1.8 mg/dL (1.6-2.6) Total Bilirubin 0.7 mg/dL (0.2-1.0) Aspartate Amino Transferase (AST) 25 U/L (13-40) Alanine Aminotransferase (ALT) 30 U/L (7-40) Alkaline Phosphatase 58 U/L (46-116) Total Protein 7.2 g/dL (5.7-8.2) Albumin 4.8 g/dL (3.2-4.8) Urine Color Colorless (Yellow) Urine Clarity Clear (Clear) Urine pH 7.0 (5.0-9.0) Urine Specific [place] 1.018 (1.001-1.035) Urine Protein Negative (Negative) Urine Ketones Trace (Negative) Urine Blood Negative /uL (Negative) Urine Nitrite Negative (Negative) Urine Bilirubin Negative (Negative) Urine Urobilinogen Normal mg/dL (Negative) Urine Leukocyte Esterase Negative /uL (Negative) Urine RBC <1 /hpf (0 - 3) Urine Microscopic WBC /HPF (0-3) Urine Squamous Epithelial Cells Few /hpf (<5) Urine Bacteria None seen /hpf (None Seen) Urine Glucose Normal mg/dL (Normal) Other Laboratory Tests 03/30/25 05:24 Brief Hx & Hospital Course: HISTORY OF PRESENT ILLNESS: Iban Jennings is a 39-year-old male with past medical history of hypertension, hyperlipidemia, GERD, and diverticulosis, who came to the hospital with complaints of abdominal pain. Patient states he woke up this morning about 0200 with severe abdominal pain with associated nausea and vomiting. Patient states he has had a recurrent diverticulitis flare-up since 5 years. He had a colonoscopy and upper GI endoscopy last day. In colonoscopy was showing diverticulosis otherwise nonsignificant. Past medical history: HTN, hyperipidemia and Diverticulosis, GERD HOSPITAL COURSE: Patient was admitted on the line of acute cholecystitis. CT scan performed, showed CT scan shows, Sigmoid diverticulosis with minimal adjacent stranding, can not exclude early diverticulitis. Patient was put NPO, started on IV fluid, pain management, Zofran, and empiric antibiotic of Rocephin and Flagyl. Per patient, had a colonoscopy and EGD laser which was significant for diverticulosis finding. Surgery was consulted, recommended NG tube, NPO and medical management. GI was consulted, recommended medical management on outpatient basis follow up. During hospital admission, home medication were continued. On 03/10, the patient was feeling better since admission. Patient's abdominal pain, nausea and vomiting had improved. Patient was able to tolerate oral intake and was passing gas and had bowel movement. Discharge plan discussed with the patient the patient discharged home. DISCHARGE PLAN: Follow up with the PCP within 1 week of the discharge. Follow up with the surgery on outpatient basis. Follow up with GI on outpatient basis. Follow up with the discharge Clinic within 1 week of the discharge. Continue home meds Ciprofloxacin 500 mg daily for 5 days FINAL DIAGNOSIS: Acute diverticulitis, sigmoid likely history of recurrent diverticulitis since five years, since 2 years has flare-up almost every 2 months GradeII obesity Essential Hypertension Dyslipidemia GERD Hepatic steatosis Previous colonoscopy last year, showed diverticulosis otherwise unremarkable, family h/o GI malignancy -ve Marijuana use disorder, Smokes marijuana Subcentimeter right renal cysts Condition at Discharge: Good Final Diagnosis/Problems List Acute Diverticulitis Discharge Disposition: Home Discharge Instruct/Medications Diet: Regular Activity: No Restrictions, As Tolerated Follow Up/Referral: Follow up with the PCP within 1 week of the discharge. Follow up with the GI on outpatient basis. Follow up with the surgery on outpatient basis. Follow up with the discharge Clinic within 1 week of the discharge. Medications: Ciprofloxacin 500 mg daily for 5 days Continue home med Scheduled Amlodipine Besylate (Amlodipine Besylate), 1 TAB PO DAILY, (Reported) Atorvastatin Calcium (Atorvastatin Calcium), 1 TAB PO DAILY, (Reported) Cholecalciferol (Vitamin D3), 1 CAP PO DAILY, (Reported) Gabapentin (Gabapentin), 1 CAP PO DAILY, (Reported) Losartan Potassium (Losartan Potassium), 1 TAB PO DAILY, (Reported) Hiypq-0-Frjk Ethyl Esters (Ijndj-2-Qatk Ethyl Esters), 1 GM PO DAILY, (Reported) Pantoprazole Sodium Sesquihydr (Pantoprazole Sodium), 40 MG PO DAILY Tramadol Hcl (Tramadol Hcl), 50 MG PO PRN, (Reported) Scheduled PRN Acetaminophen (Acetaminophen), 650 MG PO Q6HP PRN Discharge Statement: "Patient was advised to return to the ER or call 911 if any headaches, dizziness, shortness of breath, chest pain, abdominal pain, bleeding, fevers, or worsening of medical condition. Patient was counseled about treatment plan, medications, possible side effects, patientverbalized understanding. All questions were answered to the best of my ability. This discharge took greater then 30 minutes in planning, reviewing documentation, counseling the patient, and discussing with other team members." ASSESSMENT ASSESSMENT Assessment Acute Diverticulitis Date of Service: Mar 31, 2025 Billing Provider: PREMA OSMAN MD Common Visit Codes: [id number] DISCH DAY >30min KI WEISS RESDIENT Mar 31, 2025 18:30 PRMEA OSMAN MD Mar 31, 2025 23:41
--- NOTE | 2025-03-31 21:40 | DVHPN2 ---
Progress Note - Dictate Date Seen: Mar 31, 2025 (Late entryTime of visit 12 known) Has the PT tested + for MRSA If YES, has PT been informed?: No Medical Necessity Reason Pt with a Central, PICC or Fol: No Subjective Patient is feeling better today No further nausea vomiting NG-tube was discontinued Patient is started on a clear liquid diet Patient is also complaining of GERD symptoms Abdominal pain is improving vital signs Vital Sign Date Time Temp Pulse Resp B/P (MAP) Pulse Ox O2 Delivery O2 Flow Rate FiO2 03/31/25 12:23 97.1 94 16 127/80 (96) 100 97.1 03/31/25 07:30 Room Air* 0 21 Total Intake and Output 03/30/25 03/30/25 03/31/25 15:00 23:00 07:00 Intake Total 100 ml 0 ml 0 ml Output Total 350 ml 250 ml Balance 100 ml -350 ml -250 ml objective General: NAD, AAOX3; NGT in place Chest: lung duke clear to auscultation Heart: RRR, no murmur Abdomen: non-distended, mild lower abdominal tenderness to palpation, +BS laboratory and microbiology Laboratory Tests 03/30/25 05:24 Test 03/30/25 05:24 Range/Units Serum Glucose 97 74-106 mg/dL Problems(with codes): (1) Diverticulitis of intestine (2) Acute abdominal pain (3) Cyclical vomiting syndrome (4) Diverticular disease (5) Vomiting Prognosis Plan Advance diet as tolerated Discontinue IV Flagyl Antiemetics Pain control Stool softeners Discharge planning is in progress Outpatient follow up with GI and surgical department Dietary Evaluation Review Comments: Advance to diet as tolerated. Encourage High fiber diet and physical activities. avoid marijana use Expected Outcomes/Goals: Wt loss and normal GI function Plan discussed with: Patient GERARDO SUAZO MD Mar 31, 2025 21:40
== END 2025-03-31 16:30 | disposition home or self-care (01) | DRG 244 ==
LOC: ER 08:03 → OVERFLOW 15:20 → CENTRAL 03-28 15:41
PROVIDERS: ADMIT Student in an Organized Health Care Education/Training Program; ATTEND Emergency Medicine
DX: K57.32 Diverticulitis of large intestine without perforation or abscess without bleeding (principal); R65.10 Systemic inflammatory response syndrome (SIRS) of non-infectious origin without acute organ dysfunction; K76.0 Fatty (change of) liver, not elsewhere classified; E66.01 Morbid (severe) obesity due to excess calories; F12.10 Cannabis abuse, uncomplicated; Z68.39 Body mass index [BMI] 39.0-39.9, adult; I10 Essential (primary) hypertension; E78.5 Hyperlipidemia, unspecified; R73.9 Hyperglycemia, unspecified; K21.9 Gastro-esophageal reflux disease without esophagitis; N28.1 Cyst of kidney, acquired; Z91.040 Latex allergy status; Z88.6 Allergy status to analgesic agent; Z87.891 Personal history of nicotine dependence; Z83.3 Family history of diabetes mellitus; Z82.49 Family history of ischemic heart disease and other diseases of the circulatory system; Z80.0 Family history of malignant neoplasm of digestive organs
CPT/HCPCS: 36415; 71045; 74177; 80048; 80053; 81001; 83735; 85025; 96361; 96365; 96367; 96375; 99291; G0378; J1885; J2003; J2405; J2470; J3490

== ENCOUNTER 2025-05-21 09:55 | Inpatient (IN) | payer MEDICAID ==
[~2025-05-21] VITALS: Ht 177.8 cm; Wt 123.5 kg
[~2025-05-21 09:55] MED LIST changes: +LOSA-534 PO
--- NOTE | 2025-05-21 10:26 | ED.PDOC ---
GI ASSESSMENT HPI Comments 39 y/o M, with PMHx of diverticulitis and HTN presents to the ED for CC of abdominal pain. Patient states, he has been experiencing a diverticulosis flare up onset, 0500 this morning (05/21/25). Patient relays, to have further associated symptoms or nausea, vomiting, and diarrhea; endorses last flare up to have been [id number] ago. Patient denies hematemesis, hematochezia, fever, chills, or sweats. No other symptoms or modifying factors are present at this time. Chief Complaint: Abdominal Pain Time Seen by MD: 10:20 Primary Care Provider: Unknown Reviewed Notes: Nurses Notes, Medications, Allergies Allergies: Coded Allergies: Ibuprofen (Verified Allergy, Unknown, 11/15/21) Latex (Verified Allergy, Unknown, 11/15/21) Metronidazole (Verified Allergy, Unknown, 05/21/25) Home Meds Active Scripts Pantoprazole Sodium Sesquihydr (Pantoprazole Sodium) 40 Mg Tab, 40 MG PO DAILY for 30 Days, #30 TAB Prov:DANNA TORRES RESIDENT 12/09/23 Acetaminophen (Acetaminophen) 325 Mg Tab, 650 MG PO Q6HP PRN for 30 Days, #240 TAB Prov:DANNA TORRES RESIDENT 12/09/23 Reported Medications Losartan Potassium (Losartan Potassium) 50 Mg Tab, 1 TAB PO DAILY 03/27/25 Tramadol Hcl (Tramadol Hcl) 50 Mg Tab, 50 MG PO PRN, TAB 01/19/25 Amlodipine Besylate (Amlodipine Besylate) 10 Mg Tab, 1 TAB PO DAILY 01/18/25 Gabapentin (Gabapentin) 300 Mg Cap, 1 CAP PO DAILY 01/18/25 Atorvastatin Calcium (ATORVASTATIN CALCIUM) 20 Mg Tab, 1 TAB PO DAILY 01/18/25 Axqqb-0-Lblj Ethyl Esters (Efgrp-3-Cldj Ethyl Esters) 1 Gm Cap, 1 GM PO DAILY, CAP 07/01/24 Cholecalciferol (VITAMIN D3) 5,000 Unit Cap, 1 CAP PO DAILY 12/08/23 Information Source: Patient Mode of Arrival: Ambulatory Timing: Hours Duration: Since onset Prehospital treatment: None Vomitus: Watery Stool: Watery Severity: Moderate Recent: None Recent Hx of: None Pain Location: LLQ Modifying Factors: Nothing Associated sign and symptoms: Nausea, Vomiting, Diarrhea, Abdominal Pain Past Medical History PAST MEDICAL HISTORY: Denies Surgical History: Denies all surgeries Family History Family History: No family hx of DM, No family hx of Heart marcelo, No family hx of HTN Social History Smoker: Quit Less Than 1 Year, Other Alcohol: Occasionally Drugs: Marijuana Lives In: Home Constitutional: denies: chills, diaphoresis, fatigue, fever, malaise, sweats, weakness, others EENTM: denies: blurred vision, double vision, ear bleeding, ear discharge, ear drainage, ear pain, ear ringing, eye pain, eye redness, hearing loss, mouth pain, mouth swelling, nasal discharge, nose bleeding, nose congestion, nose pain, photophobia, tearing, throat pain, throat swelling, voice changes, others Respiratory: denies: cough, hemoptysis, orthopnea, SOB at rest, shortness of breath, SOB with excertion, stridor, wheezing, others Cardiovascular: denies: chest pain, dizzy spells, diaphoresis, Dyspnea on exertion, edema, irregular heart beat, left arm pain, lightheadedness, palpitations, PND, syncope, others Gastrointestinal: reports: abdominal pain, diarrhea, nausea, vomiting; denies: abdomen distended, blood streaked bowels, constipated, dysphagia, difficulty swallowing, hematemesis, melena, poor appetite, poor fluid intake, rectal bleeding, rectal pain, others Genitourinary: denies: burning, dysuria, flank pain, frequency, hematuria, incontinence, penile discharge, penile sore, pain, testicle pain, testicle swelling, urgency, others Neurological: denies: dizziness, fainting, headache, left sided numbness, left sided weakness, numbness, paresthesia, pre-existing deficit, right sided numbness, right sided weakness, seizure, speech problems, tingling, tremors, weakness, others Musculoskeletal: denies: back pain, gout, joint pain, joint swelling, muscle pain, muscle stiffness, neck pain, others Integumetry: denies: bruises, change in color, change in hair/nails, dryness, laceration, lesions, lumps, rash, wounds, others Allergic/Immunocompromised: denies: Difficulty Healing, Frequent Infections, Hives, Itching, others Hematologic/Lymphatic: denies: anemia, blood clots, easy bleeding, easy bruising, swollen glands, others Endocrine: denies: excessive hunger, excessive sweating, excessive thirst, excessive urination, flushing, intolerance to cold, intolerance to heat, unexplained weight gain, unexplained weight loss, others Psychiatric: denies: anxiety, bipolar disorder, depression, hopeless, panic disorder, schizophrenia, sleepless, suicidal, others All Other Systems: Reviewed and Negative Physical Exam General Appearance: Moderate Distress HEENT: Normal ENT Inspection, Pharynx Normal, TMs Normal Neck: Full Range of Motion, Non-Tender, Normal, Normal Inspection Respiratory: Chest Non-Tender, Lungs Clear, No Accessory Muscle Use, No Respiratory Distress, Normal Breath Sounds Cardiovascular: No Edema, No JVD, No Murmur, No Gallop, Normal Peripheral Pulses, Regular Rate/Rhythm Breast Exam: Deferred Gastrointestinal: LLQ, LUQ, No Organomegaly, No Pulsatile Mass, Normal Bowel Sounds, Soft, Suprapubic, Tenderness Genitalia: Deferred Pelvic: Deferred Rectal: Deferred Extremities: No calf tenderness, Normal capillary refill, Normal inspection, Normal range of motion, Non-tender, No pedal edema Musculoskeletal : Apperance: Normal Neurologic: Alert, milk inspector II-XII nml as Tested, Motor Weakness, Normal Affect, Normal Mood, No Sensory Deficits Cerebellar Function: Normal Reflexes: Normal Skin: Dry, Normal Color, Warm Lymphatic: No Adenopathy Was a procedure done? Was a procedure done?: No GI differential Dx Differential Diagnosis: Cholangitis, Diverticular disease, Inflammatory BD, Dehydration, Drug toxicity X-Ray, Labs, Meds, VS Vital Signs Date Time Temp Pulse Resp B/P (MAP) Pulse Ox O2 Delivery O2 Flow Rate FiO2 05/21/25 10:45 Room Air* 0 21 05/21/25 10:45 98.5 17 60 163/115 (131) 99 98.5 05/21/25 10:32 73 17 203/127 05/21/25 10:31 203/127 05/21/25 09:56 72 16 156/112 100 Lab Test 05/21/25 11:15 05/21/25 10:37 Range/Units Urine Color Straw Yellow Urine Clarity Clear Clear Urine pH 8.0 5.0-9.0 Urine Specific [place] 1.012 1.001-1.035 Urine Protein Negative Negative Urine Ketones Negative Negative Urine Blood Negative Negative /uL Urine Nitrite Negative Negative Urine Bilirubin Negative Negative Urine Urobilinogen Normal Negative mg/dL Urine Leukocyte Esterase Negative Negative /uL Urine RBC <1 0 - 3 /hpf Urine Microscopic WBC < 1 0-3 /HPF Urine Squamous Epithelial Cells None seen <5 /hpf Urine Bacteria None seen None Seen /hpf Urine Glucose Normal Normal mg/dL White Blood Count 15.3 H 4.4-10.8 10^3/uL Red Blood Count 5.38 4.5-5.90 10^6/uL Hemoglobin 15.9 13.5-17.5 g/dL Hematocrit 46.7 41.0-53.0 % Mean Corpuscular Volume 86.7 80.0-100.0 fL Mean Corpuscular Hemoglobin 29.6 28.0-32.0 pg Mean Corpuscular Hemoglobin Concent 34.1 32.0-36.0 g/dL Red Cell Distribution Width 14.0 11.8-14.3 % Platelet Count 245 140-450 10^3/uL Mean Platelet Volume 9.1 6.9-10.8 fL Neutrophils (%) (Auto) 86.9 H 37.0-80.0 % Lymphocytes (%) (Auto) 10.2 10.0-50.0 % Monocytes (%) (Auto) 2.5 0.0-12.0 % Eosinophils (%) (Auto) 0.1 0.0-7.0 % Basophils (%) (Auto) 0.3 0.0-2.0 % Neutrophils # (Auto) 13.3 H 1.6-8.6 10 ^3/uL Lymphocytes # (Auto) 1.6 0.4-5.4 10 ^3/uL Monocytes # (Auto) 0.4 0-1.3 10 ^3/uL Eosinophils # (Auto) 0 0-0.8 10 ^3/uL Basophils # (Auto) 0 0-0.2 10 ^3/uL Nucleated Red Blood Cells 0.1 % Sodium Level 139 136-145 mmol/L Potassium Level 3.6 3.5-5.1 mmol/L Chloride Level 102 98-107 mmol/L Carbon Dioxide Level 23 20-31 mmol/L Anion Gap 14 5-15 Blood Urea Nitrogen < 5 L 9-23 mg/dL Creatinine 0.97 0.700-1.30 mg/dL Glomerular Filtration Rate Calc 101 >90 mL/min BUN/Creatinine Ratio 5.2 L 10.0-20.0 Serum Glucose 131 H 74-106 mg/dL Lactic Acid Level 3.2 *H 0.4-2.0 mmol/L Calcium Level 9.8 8.7-10.4 mg/dL Total Bilirubin 0.6 0.2-1.0 mg/dL Aspartate Amino Transferase (AST) 26 13-40 U/L Alanine Aminotransferase (ALT) 31 7-40 U/L Alkaline Phosphatase 79 46-116 U/L Total Protein 8.4 H 5.7-8.2 g/dL Albumin 5.3 H 3.2-4.8 g/dL Lipase 38 12-53 U/L Current Medications Medications (Trade) Dose Ordered Sig/Darshana Route Start Time Stop Time Status Last Admin Ondansetron HCl (Zofran) 4 mg ONCE ONCE IV 05/21/25 10:30 05/21/25 10:31 DC 05/21/25 10:31 Sodium Chloride 1,000 ml @ 1,000 mls/hr Q1H ONCE IVB 05/21/25 10:30 05/21/25 11:29 DC 05/21/25 10:32 Morphine Sulfate 4 mg ONCE ONCE IV 05/21/25 10:30 05/21/25 10:31 DC 05/21/25 10:32 Hydralazine HCl (Apresoline Injection) 20 mg ONCE ONCE IV 05/21/25 10:30 05/21/25 10:31 DC 05/21/25 10:31 Pantoprazole Sodium (Protonix) 40 mg ONCE ONCE IV 05/21/25 12:30 05/21/25 12:31 DC 05/21/25 12:48 Vancomycin HCl 250 ml @ 250 mls/hr ONCE ONCE IV 05/21/25 12:30 05/21/25 13:29 DC 05/21/25 12:48 Sodium Chloride 2,200 ml @ 2,200 mls/hr ONCE ONCE IV 05/21/25 12:30 05/21/25 13:29 DC 05/21/25 13:55 IV Hep-Lock was established patient was given a 1 L bolus of normal saline The patient was given morphine 4 mg IV push The patient was given Zofran 4 mg IV push. The patient is hypertensive so was given hydralazine 20 mg IV push The patient was given Protonix 40 mg push The patient was given vancomycin for possible colitis The patient has been hydrated with normal saline per sepsis protocol The urine test is negative The CBC shows an elevated white blood cell count of 15.3 The chemistry panel shows a lactic acid level at 3.2 The 2nd lactic acid level did decrease The CAT scan of the abdomen and pelvis shows: IMPRESSION: 1. Acute sigmoid diverticulitis. No evidence of free intraperitoneal air or abscess formation. There is no sign of any micro perforation or obstruction Images Reviewed?: Images reviewed and evaluated by me Time of 1ST Reevaluation: 10:50 Reevaluation 1ST: Unchanged Patient Education/Counseling: Diagnosis, Treatment, Prognosis Family Education/Counseling: No Family Present SEPSIS Sepsis Screen Date sepsis recognized/suspect: May 21, 2025 Time Sepsis recognized/suspect: 955 Recent Procedure: No On Antibiotic Therapy: No Respiratory Rate >20: No Heart Rate >90: No Temp<36 C (96.8 F) or >38.3 C: No SBP <90 or MAP <65 mmHG: No New Acute Mental Status Change: No Is the patient on CPAP, BIPAP,: No Physician Orders Ct Ab Pel Wo Con-No Oral Or Iv (05/21/25 10:22) Heplock Iv (05/21/25 10:22) Blood Culture (05/21/25 10:22) Diamond Wheel Molder (05/21/25 10:22) Blood Pressure (05/21/25 10:22) Pulse Oximetry (05/21/25 10:22) Vital Signs Date Time Temp Pulse Resp B/P (MAP) Pulse Ox O2 Delivery O2 Flow Rate FiO2 05/21/25 10:45 Room Air* 0 21 05/21/25 10:45 98.5 17 60 163/115 (131) 99 98.5 05/21/25 10:32 73 17 203/127 05/21/25 10:31 203/127 05/21/25 09:56 72 16 156/112 100 Laboratory Tests Test 05/21/25 10:37 Lactic Acid Level 3.2 mmol/L (0.4-2.0) *H White Blood Count 15.3 10^3/uL (4.4-10.8) H Medications Medications Dose Ordered Sig/Darshana Route Start Time Stop Time Status Last Admin Dose Admin Hydralazine HCl 20 mg ONCE ONCE IV 05/21/25 10:30 05/21/25 10:31 DC 05/21/25 10:31 Morphine Sulfate 4 mg ONCE ONCE IV 05/21/25 10:30 05/21/25 10:31 DC 05/21/25 10:32 Ondansetron HCl 4 mg ONCE ONCE IV 05/21/25 10:30 05/21/25 10:31 DC 05/21/25 10:31 Pantoprazole Sodium 40 mg ONCE ONCE IV 05/21/25 12:30 05/21/25 12:31 DC 05/21/25 12:48 Sodium Chloride 1,000 ml @ 1,000 mls/hr Q1H ONCE IVB 05/21/25 10:30 05/21/25 11:29 DC 05/21/25 10:32 Sodium Chloride 2,200 ml @ 2,200 mls/hr ONCE ONCE IV 05/21/25 12:30 05/21/25 13:29 DC 05/21/25 13:55 Vancomycin HCl 250 ml @ 250 mls/hr ONCE ONCE IV 05/21/25 12:30 05/21/25 13:29 DC 05/21/25 12:48 Departure 1 Departure Time of Disposition: 16:28 Impression: Primary Impression: Intractable abdominal pain Additional Impressions: Acute diverticulitis Sepsis Qualified Codes: A41.9 - Sepsis, unspecified organism Disposition: ADMITTED INPATIENT Admit to: Med Surg Condition: Fair Critical Care Note Critical Care Time?: No Stability Stability form required: Yes Unstable for transfer: Telemetry monitoring (Telemetry monitoring required), ED Physician Assesment (Clinical assesment) Heart Score Heart Score: Heart Score Response (Comments) Value History N/A 0 EKG N/A 0 Age N/A 0 Risk Factors N/A 0 Troponin N/A 0 Total 0 I personally scribed for APOLINAR CAMACHO MD ([email or web address]) on 05/21/25 at 10:26. Electronically submitted by Peggy Mayfield ([email or web address]). APOLINAR CAMCAHO MD May 21, 2025 10:26
[2025-05-21] MEDS: ONDANSETRON HCL 4 MG/2 ML VIAL IV ONE (10:31)
[2025-05-21] MEDS: hydrALAZINE HCL 20 MG/ML VL IV ONE ×2 (10:31→17:19)
[2025-05-21] MEDS: SODIUM CHLORIDE 0.9% 1,000 ML IVB ONE (10:32)
[2025-05-21] MEDS: MORPHINE SULFATE 4 MG/ML SYR/VIAL IV ONE ×2 (10:32→14:30)
[2025-05-21 11:02] LABS: Hematocrit 46.7 % (41.0-53.0); Hemoglobin 15.9 g/dL (13.5-17.5); Mean Corpuscular Hemoglobin 29.6 pg (28.0-32.0); Mean Corpuscular Volume 86.7 fL (80.0-100.0); Nucleated Red Blood Cells % 0.1 %
[2025-05-21 11:19] LABS: Alanine Aminotransferase 31 U/L (7-40); Alkaline Phosphatase 79 U/L (46-116); Anion Gap 14 (5-15); Bilirubin, Total 0.6 mg/dL (0.2-1.0); Calcium 9.8 mg/dL (8.7-10.4); Carbon Dioxide 23 mmol/L (20-31); Chloride 102 mmol/L (98-107); Lipase 38 U/L (12-53); Potassium 3.6 mmol/L (3.5-5.1); Sodium 139 mmol/L (136-145)
[2025-05-21 11:20] LABS: BUN/Creatinine Ratio 5.2 (10.0-20.0); Blood Urea Nitrogen < 5 mg/dL (9-23); Glucose 131 mg/dL (74-106); Total Protein 8.4 g/dL (5.7-8.2)
[2025-05-21 11:21] LABS: Albumin 5.3 g/dL (3.2-4.8)
[2025-05-21 11:28] LABS: Lactic Acid w/Reflex 3.2 mmol/L (0.4-2.0)
--- NOTE | 2025-05-21 11:48 | DVH ---
Exam: CT CT AB PEL WO CON-NO ORAL OR IV History: Pain. Comparison Study: CT CT AB PEL WITH IV CON ONLY on DOS: 03/27/25 Technique: Multidetector spiral CT of the abdomen and pelvis was performed from lung bases to pubic s ymphysis. Imaging was performed without intravenous contrast. Coronal and sagittal multiplanar reform ats were obtained from the axial data set by the technologist. Radiation Dose : 1. Abdomen/Pelvis: CTDIvol 25.71 mGy, DLP 1796.72 mGy*cm. Findings: Evaluation of vasculature and solid organs is limited due to lack of intravenous contrast use. Lung Bases: Lung bases are clear. Visualized portions of the heart and pericardium are unremarkable. Liver: The liver is normal in size. No focal lesions. Gallbladder and Biliary Tree: The gallbladder is unremarkable. No intrahepatic or extrahepatic bilia ry ductal dilatation. Spleen: Unremarkable Pancreas: The pancreas is grossly unremarkable. Adrenal Glands: Unremarkable Kidneys: Kidneys are unremarkable without calculi or hydronephrosis. GI tract: The stomach is grossly normal in appearance. No evidence of small bowel wall thickening or abnormal dilatation to suggest bowel obstruction. There Sigmoid diverticulosis with mucosal thickenin g and fat stranding consistent with acute sigmoid diverticulitis. The appendix is not visualized, how ever no inflammatory changes in the right lower quadrant to suggest acute appendicitis. Peritoneum/mesentery/retroperitoneum. No evidence of free intraperitoneal air. No ascites. No evidenc e of suspicious lymphadenopathy. Abdominal Wall: Unremarkable. Vasculature: The visualized abdominal aorta is normal in size and caliber. Evaluation of abdominal a nd pelvic vessels is limited due to lack of intravenous contrast. Urinary Bladder: Grossly unremarkable for degree of distention. Pelvic Organs: Unremarkable Musculoskeletal: No aggressive focal bony lesions, acute fractures or dislocation. IMPRESSION: 1. Acute sigmoid diverticulitis. No evidence of free intraperitoneal air or abscess formation.
[2025-05-21 12:01] LABS: Urine Protein, UAD Negative (Negative)
[2025-05-21] MEDS: VANCOMYCIN 1GM/250ML KIT 250 ML IV ONE (12:48)
[2025-05-21] MEDS: PANTOPRAZOLE 40 MG/10 ML VIAL INJ IV ONE (12:48)
[2025-05-21] MEDS: SODIUM CHLORIDE 0.9% 2,200 ML IV ONE (13:55)
[2025-05-21] MEDS: ENALAPRILAT 1.25 MG/ML-1ML VIAL IV ONE (14:30)
[2025-05-21] MEDS: PIPERACILLIN-TAZOB 3.375GM 100 ML IV SCH (15:00)
[2025-05-21] MEDS: SODIUM CHLORIDE 0.9% 1,000 ML IV ONE (15:15)
--- NOTE | 2025-05-21 17:48 | DVHHPRES ---
History of Present Illness Resident Creating Document: AMINATA JOY RESIDENT History of Present Illness Patient is a 39-year-old male with a medical history of hypertension, GERD, diverticulitis presented to the ED with a chief complaint of intractable nauseous/vomiting and abdominal pain since the morning. Patient was apparently well daily yesterday in when he woke up in the morning started to have left lower quadrant abdominal pain with intractable nausea and vomiting following which she came to the ER for further evaluation. Initial CT abdomen showed acute diverticulitis of the sigmoid colon without any perforation or abscess formation. Past medical history: As per HPI Past surgical history: None reported Social history: Patient denies smoking, alcohol, drug use Home medications: Amlodipine, losartan, Protonix Review of Systems Review of Systems Patient seen and examined at the bedside Reports of [id number] left lower quadrant abdominal pain and continued to have nausea dry heaving Denied headache, fever, chills Allergies: Coded Allergies: Ibuprofen (Verified Allergy, Unknown, 11/15/21) Latex (Verified Allergy, Unknown, 11/15/21) Metronidazole (Verified Allergy, Unknown, 05/21/25) Medications Current Medications Medications Dose Ordered Sig/Darshana Route Start Time Stop Time Status Last Admin Dose Admin Piperacillin Sod/ Tazobactam Sod 100 ml @ 25 mls/hr Q8HR IV 05/21/25 14:00 05/21/25 15:00 25 MLS/HR Pantoprazole Sodium 40 mg DAILY IV 05/22/25 10:00 Ondansetron HCl 4 mg Q6HPRN PRN IV 05/21/25 12:45 Morphine Sulfate 2 mg Q4HPRN PRN IV 05/21/25 14:15 Exam Vital Signs Vital Signs Date Time Temp Pulse Resp B/P (MAP) Pulse Ox O2 Delivery O2 Flow Rate FiO2 05/21/25 17:19 225/123 05/21/25 16:00 71 21 95 05/21/25 10:45 Room Air* 0 21 05/21/25 10:45 98.5 98.5 Exam Gen - no pallor, no icterus, no peripheral edema . Skin - Patients skin is warm and dry. HEENT - normocephalic, atraumatic, dry mucous membranes. Neck - full ROM, no LAD, no JVD Pulmonary - B/L equal breath sounds, no crackles, no wheezing, no stridor. cardiovascular - regular S1,S2 heard, no added sounds, no murmurs heard. peripheral pulses normal radial 2+, pedal 2+. capillary refill normal <2 secs. GI - soft abdomen with tenderness to palpation in the left lower quadrant. no hepatospleenomegaly. Bowel sounds hypoactive Neurological - Patient is A/O X 3 . Bilateral upper extremity strength 5/5, bilateral lower extremity strength 5/5, no facial droop, normal speech, no tremor, no sensory deficiets. Labs/Xrays Labs Test 05/21/25 11:15 05/21/25 10:37 Range/Units Urine Color Straw Yellow Urine Clarity Clear Clear Urine pH 8.0 5.0-9.0 Urine Specific [place] 1.012 1.001-1.035 Urine Protein Negative Negative Urine Ketones Negative Negative Urine Blood Negative Negative /uL Urine Nitrite Negative Negative Urine Bilirubin Negative Negative Urine Urobilinogen Normal Negative mg/dL Urine Leukocyte Esterase Negative Negative /uL Urine RBC <1 0 - 3 /hpf Urine Microscopic WBC < 1 0-3 /HPF Urine Squamous Epithelial Cells None seen <5 /hpf Urine Bacteria None seen None Seen /hpf Urine Glucose Normal Normal mg/dL White Blood Count 15.3 H 4.4-10.8 10^3/uL Red Blood Count 5.38 4.5-5.90 10^6/uL Hemoglobin 15.9 13.5-17.5 g/dL Hematocrit 46.7 41.0-53.0 % Mean Corpuscular Volume 86.7 80.0-100.0 fL Mean Corpuscular Hemoglobin 29.6 28.0-32.0 pg Mean Corpuscular Hemoglobin Concent 34.1 32.0-36.0 g/dL Red Cell Distribution Width 14.0 11.8-14.3 % Platelet Count 245 140-450 10^3/uL Mean Platelet Volume 9.1 6.9-10.8 fL Neutrophils (%) (Auto) 86.9 H 37.0-80.0 % Lymphocytes (%) (Auto) 10.2 10.0-50.0 % Monocytes (%) (Auto) 2.5 0.0-12.0 % Eosinophils (%) (Auto) 0.1 0.0-7.0 % Basophils (%) (Auto) 0.3 0.0-2.0 % Neutrophils # (Auto) 13.3 H 1.6-8.6 10 ^3/uL Lymphocytes # (Auto) 1.6 0.4-5.4 10 ^3/uL Monocytes # (Auto) 0.4 0-1.3 10 ^3/uL Eosinophils # (Auto) 0 0-0.8 10 ^3/uL Basophils # (Auto) 0 0-0.2 10 ^3/uL Nucleated Red Blood Cells 0.1 % Sodium Level 139 136-145 mmol/L Potassium Level 3.6 3.5-5.1 mmol/L Chloride Level 102 98-107 mmol/L Carbon Dioxide Level 23 20-31 mmol/L Anion Gap 14 5-15 Blood Urea Nitrogen < 5 L 9-23 mg/dL Creatinine 0.97 0.700-1.30 mg/dL Glomerular Filtration Rate Calc 101 >90 mL/min BUN/Creatinine Ratio 5.2 L 10.0-20.0 Serum Glucose 131 H 74-106 mg/dL Lactic Acid Level 3.2 *H 0.4-2.0 mmol/L Calcium Level 9.8 8.7-10.4 mg/dL Total Bilirubin 0.6 0.2-1.0 mg/dL Aspartate Amino Transferase (AST) 26 13-40 U/L Alanine Aminotransferase (ALT) 31 7-40 U/L Alkaline Phosphatase 79 46-116 U/L Total Protein 8.4 H 5.7-8.2 g/dL Albumin 5.3 H 3.2-4.8 g/dL Lipase 38 12-53 U/L SEPSIS Sepsis Screen Date sepsis recognized/suspect: May 21, 2025 Time Sepsis recognized/suspect: 1030 Recent Procedure: No On Antibiotic Therapy: No Respiratory Rate >20: No Heart Rate >90: No Temp<36 C (96.8 F) or >38.3 C: No SBP <90 or MAP <65 mmHG: No New Acute Mental Status Change: No Is the patient on CPAP, BIPAP,: No Physician Orders Ct Ab Pel Wo Con-No Oral Or Iv (05/21/25 10:22) Heplock Iv (05/21/25 10:22) Blood Culture (05/21/25 10:22) Melt Down Furnace Operator (05/21/25 10:22) Blood Pressure (05/21/25 10:22) Pulse Oximetry (05/21/25 10:22) Admit (05/21/25 12:31) Oxygen By Nasal Cannula (05/21/25 12:31) Stat Ekg For Chest Pain (05/21/25 12:31) Notify Of Changes From Base (05/21/25 12:31) Emergency Dysrhythmia Protocol (05/21/25 12:31) Piperacillin-Tazob 3.375gm (Zosyn 3.375g (05/21/25 14:00) Sodium Chloride 0.9% (05/21/25 12:45) Npo Except Ice Chips (05/21/25 12:31) Npo (Nothing By Mouth) Diet (05/21/25 Lunch) Pantoprazole (Protonix) (05/22/25 10:00) Ondansetron Hcl (Zofran) (05/21/25 12:45) Morphine Sulfate Injection (05/21/25 14:15) Kub Abdomen Single View (05/21/25 17:17) Vital Signs Date Time Temp Pulse Resp B/P (MAP) Pulse Ox O2 Delivery O2 Flow Rate FiO2 05/21/25 17:19 225/123 05/21/25 16:00 71 21 205/140 (161) 95 05/21/25 14:30 85 16 195/160 05/21/25 14:30 195/160 05/21/25 14:00 75 21 194/160 (171) 99 05/21/25 12:40 101 18 200/128 05/21/25 12:00 65 21 191/119 (143) 99 05/21/25 10:45 Room Air* 0 21 05/21/25 10:45 98.5 17 60 163/115 (131) 99 98.5 05/21/25 10:32 73 17 203/127 05/21/25 10:31 203/127 05/21/25 09:56 72 16 156/112 100 Laboratory Tests Test 05/21/25 10:37 Lactic Acid Level 3.2 mmol/L (0.4-2.0) *H White Blood Count 15.3 10^3/uL (4.4-10.8) H Medications Medications Dose Ordered Sig/Darshana Route Start Time Stop Time Status Last Admin Dose Admin Enalaprilat 0.625 mg ONCE ONCE IV 05/21/25 13:45 05/21/25 14:10 DC 05/21/25 14:30 0.625 MG Hydralazine HCl 20 mg ONCE ONCE IV 05/21/25 10:30 05/21/25 10:31 DC 05/21/25 10:31 20 MG Hydralazine HCl 20 mg ONCE ONCE IV 05/21/25 17:00 05/21/25 17:05 DC 05/21/25 17:19 20 MG Morphine Sulfate 3 mg ONCE ONCE IV 05/21/25 14:00 05/21/25 14:10 DC 05/21/25 14:30 3 MG Morphine Sulfate 4 mg ONCE ONCE IV 05/21/25 10:30 05/21/25 10:31 VT 05/21/25 10:32 4 MG Ondansetron HCl 4 mg ONCE ONCE IV 05/21/25 10:30 05/21/25 10:31 VT 05/21/25 10:31 4 MG Pantoprazole Sodium 40 mg ONCE ONCE IV 05/21/25 12:30 05/21/25 12:31 VT 05/21/25 12:48 40 MG Piperacillin Sod/ Tazobactam Sod 100 ml @ 25 mls/hr Q8HR IV 05/21/25 14:00 05/21/25 15:00 25 MLS/HR Sodium Chloride 1,000 ml @ 125 mls/hr Q8H ONCE IV 05/21/25 12:45 05/21/25 20:44 05/21/25 15:15 125 MLS/HR Sodium Chloride 1,000 ml @ 1,000 mls/hr Q1H ONCE IVB 05/21/25 10:30 05/21/25 11:29 VT 05/21/25 10:32 1,000 MLS/HR Sodium Chloride 2,200 ml @ 2,200 mls/hr ONCE ONCE IV 05/21/25 12:30 05/21/25 13:29 DC 05/21/25 13:55 2,200 MLS/HR Vancomycin HCl 250 ml @ 250 mls/hr ONCE ONCE IV 05/21/25 12:30 05/21/25 13:29 DC 05/21/25 12:48 250 MLS/HR Assessment/Plan Assessment/Plan Acute intractable nausea and vomiting Acute diverticulitis, sigmoid colon without perforation or abscess Sepsis likely due to above - CT abdomen pelvis showed acute sigmoid diverticulitis, no evidence of SBO - KUB showed nonspecific bowel gas pattern - IV fluids - IV antibiotics Zosyn - pain management with morphine - currently patient is NPO Hypertensive heart disease, unknown heart failure Hypertensive urgency - blood pressure controlled with IV hydralazine and IV labetalol - will be started on p.o. medications once patient is put on diet PUD prophylaxis: Protonix DVT prophylaxis: Enoxaparin Goals of care discussed with the patient for over 23 minutes. Full code Case discussed with Dr. Law Plan discussed with: Patient My Orders Orders - AMINATA JOY Procedure Category Date Status Time Admit ADMIT 05/21/25 Transmitted 12:31 Oxygen By Nasal RT 05/21/25 Transmitted Cannula 12:31 Stat Ekg For Chest MARGE 05/21/25 In Process Pain 12:31 Notify Md Of Changes MARGE 05/21/25 In Process From Base 12:31 Emergency Dysrhythmia MARGE 05/21/25 In Process Protocol 12:31 Piperacillin-Tazob PHA 05/21/25 In Process 3.375gm (Zosyn 3.375g 14:00 Sodium Chloride 0.9% PHA 05/21/25 In Process 12:45 Npo Except Ice Chips MARGE 05/21/25 In Process 12:31 Npo (Nothing By DIET 05/21/25 Transmitted Mouth) Diet Lunch Pantoprazole PHA 05/22/25 In Process (Protonix) 10:00 Ondansetron Hcl PHA 05/21/25 In Process (Zofran) 12:45 Morphine Sulfate PHA 05/21/25 In Process Injection 14:15 Kub Abdomen Single XY 05/21/25 Logged View 17:17 Date of Service: May 21, 2025 Billing Provider: EDNA LAW MD Common Visit Codes: [id number] INP/OBS CARE (HIGH) Secondary Visit Codes: [id number] CARE PLAN 30 MINUTES AMINATA JOY RESIDENT May 21, 2025 17:48 EDNA LAW MD May 25, 2025 19:17
[2025-05-21] MEDS: LABETALOL HCL 20 MG/4 ML VL IV ONE (18:20)
--- NOTE | 2025-05-21 20:23 | DVH ---
Exam: XY KUB ABDOMEN SINGLE VIEW Indication: decreased bowel sounds, abd pain, diverticulitis Comparison: None Technique: 2 radiographic views of the abdomen. Findings: Nonobstructive bowel gas pattern. The lower chest is unremarkable. No acute osseous finding. Impression: 1. Nonobstructive bowel gas pattern.
[2025-05-21 22:50] VITALS: BP 142/101; PULSE 84; RESP 16; TEMP 98; O2SAT 98
[2025-05-21] MEDS ORDERED: LABETALOL HCL 20 MG/4 ML VL IV PRN (23:30)
[2025-05-21] MEDS: MORPHINE SULFATE 4 MG/ML SYR/VIAL IV PRN (23:59)
[2025-05-22 01:03] LABS: Lactic Acid w/Reflex 2.1 mmol/L (0.4-2.0)
[2025-05-22 05:00] VITALS: BP 119/90; PULSE 105; RESP 18; TEMP 98.1; O2SAT 94
[2025-05-22 05:49] LABS: Hematocrit 46.4 % (41.0-53.0); Hemoglobin 16.1 g/dL (13.5-17.5); Mean Corpuscular Hemoglobin 29.9 pg (28.0-32.0); Mean Corpuscular Volume 85.8 fL (80.0-100.0); Nucleated Red Blood Cells % 0.2 %
[2025-05-22 05:56] LABS: Alanine Aminotransferase 25 U/L (7-40); Alkaline Phosphatase 69 U/L (46-116); Anion Gap 15 (5-15); BUN/Creatinine Ratio 6.4 (10.0-20.0); Calcium 9.3 mg/dL (8.7-10.4); Carbon Dioxide 21 mmol/L (20-31); Chloride 100 mmol/L (98-107); Total Protein 7.9 g/dL (5.7-8.2)
[2025-05-22 05:57] LABS: Bilirubin, Total 0.7 mg/dL (0.2-1.0); Glucose 117 mg/dL (74-106); Potassium 3.3 mmol/L (3.5-5.1); Sodium 136 mmol/L (136-145)
[2025-05-22 05:58] LABS: Albumin 4.9 g/dL (3.2-4.8); Blood Urea Nitrogen 6 mg/dL (9-23)
[2025-05-22] MEDS: SODIUM CHLORIDE 0.9% 1,000 ML IV ONE (06:32)
[2025-05-22] MEDS: POTASSIUM CHLORIDE 40 MEQ, LIDOCAINE 1% (LOCAL ANESTH.) 4 ML in SODIUM CHL 0.9% 250 ML IV ONE (07:15)
[2025-05-22 09:00] VITALS: BP 152/92; PULSE 74; RESP 18; TEMP 97.8; O2SAT 98
[2025-05-22] MEDS: PANTOPRAZOLE 40 MG/10 ML VIAL INJ IV SCH (09:43)
[2025-05-22] MEDS: ENOXAPARIN SOD 40 MG/0.4 ML SYRINGE SC SCH (09:44)
[2025-05-22] MEDS: ONDANSETRON HCL 4 MG/2 ML VIAL IV PRN (09:57)
[2025-05-22] MEDS: ACETAMINOPHEN 325 MG TAB PO PRN (12:42)
[2025-05-22 13:00] VITALS: BP 133/96; PULSE 82; RESP 18; TEMP 98.1; O2SAT 99
--- NOTE | 2025-05-22 14:21 | DVHPNRES ---
Progress Note Date Seen: May 22, 2025 Resident Creating Document: MEERA FIELD Medical Necessity Reason Pt with a Central, PICC or Fol: No Subjective Review of Systems This is a 39-year-old male with a past medical history of hypertension, GERD, and diverticulitis who presented to [facility] Emergency Department with complaints of intractable nausea, vomiting, and abdominal pain that began earlier this morning. The patient reports feeling well yesterday, but upon waking today, he developed left lower quadrant abdominal pain accompanied by persistent nausea and vomiting, prompting his visit to the ED for further evaluation. He states that he was diagnosed with diverticulosis in 2018 and has experienced flare-ups approximately every three months over the past three years, resulting in multiple hospital admissions for similar episodes. A colonoscopy performed in January last year, revealed six diverticular pockets and one polyp. Initial CT imaging of the abdomen showed acute diverticulitis of the sigmoid colon without evidence of perforation or abscess formation. Past surgical history: None Home medications: Amlodipine, losartan, Protonix Social & Personal history: Patient denies smoking, alcohol, drug use Allergies: Ibuprofen, Latex, Metronidazole Patient seen and examined at bedside. Patient is . However alert and oriented to time, place person and responding to all questions. Eyes: No Pain, No Vision change, No Conjunctivae inflammation, No Eyelid inflammation, No Other, No Redness ENT: No Ear pain, No Ear discharge, No Nose pain, No Nose discharge, No Nose congestion, No Mouth pain, No Mouth swelling, No Throat pain, No Throat swelling, No Other Cardiovascular: No Chest Pain, No Palpitations, No Orthopnea, No Paroxysmal No Dyspnea, No Edema, No Lt Headedness, No Other Respiratory: No Cough, No Dry, No Shortness of breath, No SOB with exertion, No Wheezing, No Hemoptysis, No Pleuritic Pain, No Sputum, No Other Gastrointestinal: Nausea, Vomiting, Abdominal Pain, No Diarrhea, No Constipation, No Melena, No Hematochezia, No Other Genitourinary: No Dysuria, No Frequency, No Incontinence, No Hematuria, No Retention, No Other Musculoskeletal: No other, No neck pain, No shoulder pain, No arm pain, No back pain, No hand pain, No leg pain, No foot pain Skin: No Rash, No Lesions, No Jaundice, No Bruising, No Other Objective vital signs Vital Sign Date Time Temp Pulse Resp B/P (MAP) Pulse Ox O2 Delivery O2 Flow Rate FiO2 05/22/25 13:00 98.1 82 18 133/96 (108) 99 98.1 05/21/25 22:50 Room Air* 0 21 Total Intake and Output 05/21/25 05/21/25 05/22/25 15:00 23:00 07:00 Intake Total 2450 ml 250 ml 100 ml Output Total 2300 ml 0 ml Balance 2450 ml -2050 ml 100 ml medications Current Medications Medications Dose Ordered Sig/Darshana Route Start Time Stop Time Status Last Admin Dose Admin Pantoprazole Sodium 40 mg DAILY IV 05/22/25 10:00 05/22/25 09:43 40 MG Ondansetron HCl 4 mg Q6HPRN PRN IV 05/21/25 12:45 05/22/25 09:57 4 MG Morphine Sulfate 2 mg Q4HPRN PRN IV 05/21/25 14:15 05/22/25 09:51 2 MG Enoxaparin Sodium 40 mg DAILY SC 05/22/25 10:00 05/22/25 09:44 40 MG Labetalol HCl 10 mg Q2HPRN PRN IV 05/21/25 23:30 Piperacillin Sod/ Tazobactam Sod 100 ml @ 25 mls/hr Q8HR IV 05/22/25 14:00 Acetaminophen 650 mg Q6HP PRN PO 05/22/25 12:00 05/22/25 12:42 650 MG Examination Gen - no pallor, no icterus, no peripheral edema . Skin - Patients skin is warm and dry. HEENT - normocephalic, atraumatic, dry mucous membranes. Neck - full ROM, no LAD, no JVD Pulmonary - B/L equal breath sounds, no crackles, no wheezing, no stridor. cardiovascular - regular S1,S2 heard, no added sounds, no murmurs heard. peripheral pulses normal radial 2+, pedal 2+. capillary refill normal <2 secs. GI - soft abdomen with tenderness to palpation in the left lower quadrant. no hepatospleenomegaly. Bowel sounds hypoactive Neurological - Patient is A/O X 3 . Bilateral upper extremity strength 5/5, bilateral lower extremity strength 5/5, no facial droop, normal speech, no tremor, no sensory deficiets. laboratory and microbiology Laboratory Tests 05/22/25 04:52 Test 05/22/25 04:52 Range/Units Serum Glucose 117 H 74-106 mg/dL Microbiology Date/Time Source Procedure Growth Status 05/21/25 10:37 Blood Blood Culture - Preliminary NO GROWTH AFTER 24 HOURS OF INCUBATION. Resulted Labs and/or images reviewed: Labs reviewed by me, Image(s) reviewed by me Problem List/Assessment/Plan Problem List/Assessment/Plan Assessment/Plan Acute intractable nausea and vomiting Acute diverticulitis, sigmoid colon without perforation or abscess Sepsis likely due to above - Chest/Abdomen X-ray shows nonobstructive bowel gas pattern. - Abdomen/Pelvis CT shows acute sigmoid diverticulitis. No evidence of free intraperitoneal air or abscess formation. - KUB showed nonspecific bowel gas pattern - IV fluids - IV antibiotics Zosyn - pain management with morphine, Tylenol Hypertensive heart disease, unknown heart failure Hypertensive urgency - IV labetalol Diet: NPO PUD prophylaxis: Protonix 40 mg DVT prophylaxis: Lovenox 40 mg Goals of care: Full code, discussed for >16 minutes on 05/22/25 Plan discussed with patient Plan discussed with Dr. Law Plan discussed with: Patient My Orders My Orders Orders - MEERA FIELD Procedure Category Date Status Time Clear Liq Diet DIET 05/22/25 Transmitted Lunch Acetaminophen Tablet PHA 05/22/25 In Process (Tylenol Tablet) 12:00 Complete Blood Count LAB 05/23/25 Verified 04:00 Basic Metabolic Panel LAB 05/23/25 Verified 04:00 Date of Service: May 22, 2025 Billing Provider: EDNA LAW MD Common Visit Codes: [id number] INP/OBS CARE(HIGH) MEERA FIELD May 22, 2025 14:21 EDNA LAW MD May 25, 2025 19:18
[2025-05-22] MEDS: PIPERACILLIN-TAZOB 3.375GM 100 ML IV SCH (14:23)
[2025-05-22 17:00] VITALS: BP 147/97; PULSE 66; RESP 18; TEMP 98.3; O2SAT 98
[2025-05-22 20:00] VITALS: RESP 16
[2025-05-22 21:00] VITALS: BP 142/93; PULSE 86; RESP 18; TEMP 97.9; O2SAT 98
[2025-05-23 05:00] VITALS: BP_SYST 129; BP_SYST 136; BP_DIAS 77; BP_DIAS 91; PULSE 74; PULSE 91; RESP 18; TEMP 97.8; TEMP 98; O2SAT 100; O2SAT 95
[2025-05-23 06:51] LABS: Hematocrit 47.3 % (41.0-53.0); Hemoglobin 16.1 g/dL (13.5-17.5); Mean Corpuscular Hemoglobin 29.9 pg (28.0-32.0); Mean Corpuscular Volume 87.9 fL (80.0-100.0); Nucleated Red Blood Cells % 0.1 %
[2025-05-23 06:57] LABS: Anion Gap 15 (5-15); Carbon Dioxide 23 mmol/L (20-31); Chloride 102 mmol/L (98-107); Sodium 140 mmol/L (136-145)
[2025-05-23 06:58] LABS: Calcium 9.4 mg/dL (8.7-10.4)
[2025-05-23 07:01] LABS: Potassium 3.4 mmol/L (3.5-5.1)
[2025-05-23 07:03] LABS: BUN/Creatinine Ratio 8.9 (10.0-20.0); Blood Urea Nitrogen 11 mg/dL (9-23); Glucose 86 mg/dL (74-106)
[2025-05-23 08:00] VITALS: PULSE 94; RESP 20
[2025-05-23 09:00] VITALS: BP 113/85; PULSE 94; RESP 20; TEMP 97.9; O2SAT 97
[2025-05-23] MEDS: POTASSIUM EFFERVESENT TAB 25 MEQ PO ONE (10:00)
[2025-05-23 13:00] VITALS: BP 137/88; PULSE 83; RESP 20; TEMP 97.7; O2SAT 97
[2025-05-23] MEDS ORDERED: AUG875T PO (13:15)
[2025-05-23 17:00] VITALS: BP 150/93; PULSE 91; RESP 20; TEMP 98.3; O2SAT 98
[2025-05-23 17:24] VITALS: BP_DIAS 105; PULSE 82
--- NOTE | 2025-05-23 18:19 | DVHDSRES ---
Discharge Summary Date of Admission Resident Creating Document: MEERA FIELD RESIDENT May 21, 2025 at 12:31 Date of Discharge: May 23, 2025 Admitting Diagnosis left lower quadrant abdominal pain Labs/Diagnostic Data: Laboratory Results Test 05/23/25 04:46 05/22/25 04:52 05/22/25 00:31 05/21/25 11:15 White Blood Count 12.6 10^3/uL (4.4-10.8) Red Blood Count 5.38 10^6/uL (4.5-5.90) Hemoglobin 16.1 g/dL (13.5-17.5) Hematocrit 47.3 % (41.0-53.0) Mean Corpuscular Volume 87.9 fL (80.0-100.0) Mean Corpuscular Hemoglobin 29.9 pg (28.0-32.0) Mean Corpuscular Hemoglobin Concent 34.1 g/dL (32.0-36.0) Red Cell Distribution Width 13.7 % (11.8-14.3) Platelet Count 236 10^3/uL (140-450) Mean Platelet Volume 9.2 fL (6.9-10.8) Neutrophils (%) (Auto) 60.6 % (37.0-80.0) Lymphocytes (%) (Auto) 31.1 % (10.0-50.0) Monocytes (%) (Auto) 7.7 % (0.0-12.0) Eosinophils (%) (Auto) 0.2 % (0.0-7.0) Basophils (%) (Auto) 0.4 % (0.0-2.0) Neutrophils # (Auto) 7.6 10 ^3/uL (1.6-8.6) Lymphocytes # (Auto) 3.9 10 ^3/uL (0.4-5.4) Monocytes # (Auto) 1.0 10 ^3/uL (0-1.3) Eosinophils # (Auto) 0 10 ^3/uL (0-0.8) Basophils # (Auto) 0.1 10 ^3/uL (0-0.2) Nucleated Red Blood Cells 0.1 % Sodium Level 140 mmol/L (136-145) Potassium Level 3.4 mmol/L (3.5-5.1) Chloride Level 102 mmol/L (98-107) Carbon Dioxide Level 23 mmol/L (20-31) Anion Gap 15 (5-15) Blood Urea Nitrogen 11 mg/dL (9-23) Creatinine 1.23 mg/dL (0.700-1.30) Glomerular Filtration Rate Calc 76 mL/min (>90) BUN/Creatinine Ratio 8.9 (10.0-20.0) Serum Glucose 86 mg/dL (74-106) Calcium Level 9.4 mg/dL (8.7-10.4) Hemoglobin A1c 5.1 % A1C (<5.7) Total Bilirubin 0.7 mg/dL (0.2-1.0) Aspartate Amino Transferase (AST) 24 U/L (13-40) Alanine Aminotransferase (ALT) 25 U/L (7-40) Alkaline Phosphatase 69 U/L (46-116) Total Protein 7.9 g/dL (5.7-8.2) Albumin 4.9 g/dL (3.2-4.8) Lactic Acid Level 2.1 mmol/L (0.4-2.0) Urine Color Straw (Yellow) Urine Clarity Clear (Clear) Urine pH 8.0 (5.0-9.0) Urine Specific Eldred 1.012 (1.001-1.035) Urine Protein Negative (Negative) Urine Ketones Negative (Negative) Urine Blood Negative /uL (Negative) Urine Nitrite Negative (Negative) Urine Bilirubin Negative (Negative) Urine Urobilinogen Normal mg/dL (Negative) Urine Leukocyte Esterase Negative /uL (Negative) Urine RBC <1 /hpf (0 - 3) Urine Microscopic WBC < 1 /HPF (0-3) Urine Squamous Epithelial Cells None seen /hpf (<5) Urine Bacteria None seen /hpf (None Seen) Urine Glucose Normal mg/dL (Normal) Test 05/21/25 10:37 Lipase 38 U/L (12-53) Other Laboratory Tests 05/23/25 04:46 Brief Hx & Hospital Course: This is a 39-year-old male, Delfin Lima, with a past medical history of hypertension, GERD, and diverticulitis, who presented to [facility] Emergency Department with complaints of intractable nausea, vomiting, and left lower quadrant abdominal pain that began earlier in the morning. The patient reported feeling well the previous day, but upon waking, developed sudden abdominal pain accompanied by persistent nausea and vomiting. He has a known history of diverticulosis diagnosed in 2018, with recurrent flare-ups approximately every three months over the past three years, leading to multiple hospital admissions. A colonoscopy performed in January of the previous year revealed six diverticular pockets and one polyp. On arrival, the patient was alert and oriented to time, place, and person, and responded appropriately to all questions. Physical examination revealed tenderness to palpation in the left lower quadrant with hypoactive bowel sounds, but no signs of peritonitis or acute abdomen. Neurologically, the patient was intact with no focal deficits. Imaging studies included a CT of the abdomen and pelvis without contrast, which showed acute sigmoid diverticulitis with mucosal thickening and fat stranding, without evidence of perforation, abscess, or free intraperitoneal air. A KUB abdominal X-ray demonstrated a nonobstructive bowel gas pattern and no acute osseous abnormalities. The patient was treated with IV fluids, IV Zosyn for suspected sepsis secondary to diverticulitis, and pain management with morphine and Tylenol. He also experienced hypertensive urgency, managed with IV labetalol. The patient remained clinically stable throughout hospitalization and was discharged with a prescription for Amoxicillin & Potassium Clavulanate (Augmentin) 875 mg PO BID for 5 days, totaling 10 tablets. Examination Gen - no pallor, no icterus, no peripheral edema . Skin - Patients skin is warm and dry. HEENT - normocephalic, atraumatic, dry mucous membranes. Neck - full ROM, no LAD, no JVD Pulmonary - B/L equal breath sounds, no crackles, no wheezing, no stridor. cardiovascular - regular S1,S2 heard, no added sounds, no murmurs heard. peripheral pulses normal radial 2+, pedal 2+. capillary refill normal <2 secs. GI - soft abdomen with tenderness to palpation in the left lower quadrant. no hepatospleenomegaly. Bowel sounds hypoactive Neurological - Patient is A/O X 3 . Bilateral upper extremity strength 5/5, bilateral lower extremity strength 5/5, no facial droop, normal speech, no tremor, no sensory deficiets. Operations or Procedures PATIENT: DELFIN LIAM ACCT: [id number] UNIT: [id number] : 1985 LOC: OVERFLOW ROOM / BED: [address] [place] [address] / A AGE / SEX: 39 / M ADM STATUS: ADM IN SERVICE [id number] ORDERING PHYSICIAN: AMINATA JOY PROCEDURE(s): KUB - KUB ABDOMEN SINGLE VIEW REASON: decreased bowel sounds, abd pain, diverticulitis ORDER NUMBER(s): [id number], ACCESSION NUMBER(s): [id number] Exam: XY KUB ABDOMEN SINGLE VIEW Indication: decreased bowel sounds, abd pain, diverticulitis Comparison: None Technique: 2 radiographic views of the abdomen. Findings: Nonobstructive bowel gas pattern. The lower chest is unremarkable. No acute osseous finding. Impression: 1. Nonobstructive bowel gas pattern. PATIENT: DELFIN LIMA ACCT: [id number] UNIT: [id number] : 1985 LOC: ER ROOM / BED: / AGE / SEX: 39 / M ADM STATUS: REG ER SERVICE 1022 ORDERING PHYSICIAN: APOLINAR CAMACHO MD PROCEDURE(s): ABPL - CT AB PEL WO CON-NO ORAL OR IV REASON: pain ORDER NUMBER(s): [id number], ACCESSION NUMBER(s): [id number] Exam: CT CT AB PEL WO CON-NO ORAL OR IV History: Pain. Comparison Study: CT CT AB PEL WITH IV CON ONLY on DOS: 03/27/25 Technique: Multidetector spiral CT of the abdomen and pelvis was performed from lung bases to pubic symphysis. Imaging was performed without intravenous contrast. Coronal and sagittal multiplanar reformats were obtained from the axial data set by the technologist. Radiation Dose : 1. Abdomen/Pelvis: CTDIvol 25.71 mGy, DLP 1796.72 mGy*cm. Findings: Evaluation of vasculature and solid organs is limited due to lack of intravenous contrast use. Lung Bases: Lung bases are clear. Visualized portions of the heart and pericardium are unremarkable. Liver: The liver is normal in size. No focal lesions. Gallbladder and Biliary Tree: The gallbladder is unremarkable. No intrahepatic or extrahepatic biliary ductal dilatation. Spleen: Unremarkable Pancreas: The pancreas is grossly unremarkable. Adrenal Glands: Unremarkable Kidneys: Kidneys are unremarkable without calculi or hydronephrosis. GI tract: The stomach is grossly normal in appearance. No evidence of small bowel wall thickening or abnormal dilatation to suggest bowel obstruction. There Sigmoid diverticulosis with mucosal thickening and fat stranding consistent with acute sigmoid diverticulitis. The appendix is not visualized, however no inflammatory changes in the right lower quadrant to suggest acute appendicitis. Peritoneum/mesentery/retroperitoneum. No evidence of free intraperitoneal air. No ascites. No evidence of suspicious lymphadenopathy. Abdominal Wall: Unremarkable. Vasculature: The visualized abdominal aorta is normal in size and caliber. Evaluation of abdominal and pelvic vessels is limited due to lack of intravenous contrast. Urinary Bladder: Grossly unremarkable for degree of distention. Pelvic Organs: Unremarkable Musculoskeletal: No aggressive focal bony lesions, acute fractures or dislocation. IMPRESSION: 1. Acute sigmoid diverticulitis. No evidence of free intraperitoneal air or abscess formation. Condition at Discharge: Stable Final Diagnosis/Problems List Acute intractable nausea and vomiting Acute diverticulitis, sigmoid colon without perforation or abscess Sepsis likely due to above Hypertensive heart disease, unknown heart failure Hypertensive urgency Discharge Disposition: Home Discharge Instruct/Medications Diet: Regular Activity: No Restrictions, As Tolerated Follow Up/Referral: Follow up with PCP in 1 week Medications: Amoxicillin & Pot Clavulanate (Augmentin Tablet) 875 Mg PO BID 5 Days #10 TAB Scheduled Amlodipine Besylate (Amlodipine Besylate), 1 TAB PO DAILY, (Reported) Amoxicillin & Pot Clavulanate (Augmentin Tablet), 875 MG PO BID Atorvastatin Calcium (Atorvastatin Calcium), 1 TAB PO DAILY, (Reported) Cholecalciferol (Vitamin D3), 1 CAP PO DAILY, (Reported) Gabapentin (Gabapentin), 1 CAP PO DAILY, (Reported) Losartan Potassium (Losartan Potassium), 1 TAB PO DAILY, (Reported) Wwfcl-0-Usis Ethyl Esters (Ruiou-5-Xbrk Ethyl Esters), 1 GM PO DAILY, (Reported) Pantoprazole Sodium Sesquihydr (Pantoprazole Sodium), 40 MG PO DAILY Tramadol Hcl (Tramadol Hcl), 50 MG PO PRN, (Reported) Scheduled PRN Acetaminophen (Acetaminophen), 650 MG PO Q6HP PRN Discharge Statement: "Patient was advised to return to the ER or call 911 if any headaches, dizziness, shortness of breath, chest pain, abdominal pain, bleeding, fevers, or worsening of medical condition. Patient was counseled about treatment plan, medications, possible side effects, patientverbalized understanding. All questions were answered to the best of my ability. This discharge took greater then 30 minutes in planning, reviewing documentation, counseling the patient, and discussing with other team members." ASSESSMENT ASSESSMENT Assessment Acute intractable nausea and vomiting Acute diverticulitis, sigmoid colon without perforation or abscess Sepsis likely due to above Hypertensive heart disease, unknown heart failure Hypertensive urgency Date of Service: May 23, 2025 Billing Provider: EDNA GILBERT MD Common Visit Codes: 75182-VJD/OBS DISCH DAY >30min MEERA FIELD RESIDENT May 23, 2025 18:19 EDNA GILBERT MD May 25, 2025 19:18
== END 2025-05-23 18:16 | disposition home or self-care (01) | DRG 720 ==
LOC: ER 09:55 → OVERFLOW 12:31 → WEST WING 22:20
PROVIDERS: ADMIT Internal Medicine Geriatric Medicine; ATTEND Internal Medicine Geriatric Medicine
DX: A41.9 Sepsis, unspecified organism (principal); I16.0 Hypertensive urgency; I11.0 Hypertensive heart disease with heart failure; I50.9 Heart failure, unspecified; K21.9 Gastro-esophageal reflux disease without esophagitis; K57.32 Diverticulitis of large intestine without perforation or abscess without bleeding; Z83.3 Family history of diabetes mellitus; Z88.6 Allergy status to analgesic agent; Z87.891 Personal history of nicotine dependence
CPT/HCPCS: 36415; 74018; 74176; 80048; 80053; 81001; 83036; 83605; 83690; 85025; 87040; 96374; G0378; J1956; J2003; J2405; J2470; J2543

== ENCOUNTER 2025-07-21 01:35 | Emergency (ER) | payer MEDICAID ==
[~2025-07-21] VITALS: Ht 177.8 cm; Wt 127.2 kg
[~2025-07-21 01:35] MED LIST changes: +AUG875T PO
--- NOTE | 2025-07-21 02:27 | ED.PDOC ---
GI ASSESSMENT HPI Comments Patient is a 39-year-old male with past medical history of diverticulosis, 2 episodes of diverticulitis, hypertension, GERD who comes in due to acute intractable abdominal pain that is rated 10:30 p.m.. According to the patient, he had rice for dinner and shortly after started experiencing abdominal pain which he localizes to the left lower quadrant, describes it as sharp, 9/10 in intensity, worsened with vomiting without any relieving factors, associated with3 episodes of nonbloody diarrhea and more than 6 episodes of vomiting, vomitus bilious. Notes having similar symptoms in May when he was subsequently diagnosed with diverticulitis. On review of systems patient is complaining of nausea, vomiting, diarrhea. Chief Complaint: Abdominal Pain Time Seen by MD: 01:57 Primary Care Provider: Unknown Allergies: Coded Allergies: Ibuprofen (Verified Allergy, Unknown, 11/15/21) Latex (Verified Allergy, Unknown, 11/15/21) Metronidazole (Verified Allergy, Unknown, 05/21/25) Home Meds Active Scripts Ondansetron Odt 4MG Tab (ZOFRAN PO) 4 Mg Tb, 4 MG PO Q6HR for 3 Days, #12 TAB ODT TAB-DISSOLVE IN MOUTH, THEN SWALLOW Prov:SJ WILLIAMSON MD 07/21/25 Famotidine (PEPCID TABLET) 20 Mg Tb, 1 TAB PO DAILY for 30 Days, #30 TAB 5 Refills Prov:SJ WILLIAMSON MD 07/21/25 Amoxicillin & Pot Clavulanate (AUGMENTIN TABLET) 875 Mg Tb, 875 MG PO BID for 5 Days, #10 TAB Prov:PEGGY BOYER RESIDENT 05/23/25 Pantoprazole Sodium Sesquihydr (Pantoprazole Sodium) 40 Mg Tab, 40 MG PO DAILY for 30 Days, #30 TAB Prov:DANNA TORRES RESIDENT 12/09/23 Acetaminophen (Acetaminophen) 325 Mg Tab, 650 MG PO Q6HP PRN for 30 Days, #240 TAB Prov:DANNA TORRES RESIDENT 12/09/23 Reported Medications Losartan Potassium (Losartan Potassium) 50 Mg Tab, 1 TAB PO DAILY 03/27/25 Tramadol Hcl (Tramadol Hcl) 50 Mg Tab, 50 MG PO PRN, TAB 01/19/25 Amlodipine Besylate (Amlodipine Besylate) 10 Mg Tab, 1 TAB PO DAILY 01/18/25 Gabapentin (Gabapentin) 300 Mg Cap, 1 CAP PO DAILY 01/18/25 Atorvastatin Calcium (ATORVASTATIN CALCIUM) 20 Mg Tab, 1 TAB PO DAILY 01/18/25 Fwsbq-0-Lksu Ethyl Esters (Cmoyk-0-Zxku Ethyl Esters) 1 Gm Cap, 1 GM PO DAILY, CAP 07/01/24 Cholecalciferol (VITAMIN D3) 5,000 Unit Cap, 1 CAP PO DAILY 12/08/23 Information Source: Patient Mode of Arrival: Ambulatory Timing: Hours Duration: Since onset Prehospital treatment: None Quality: Sharp Vomitus: Bilious Stool: Watery Severity: Moderate Pain Location: Diffuse, LLQ Modifying Factors: Movement Associated sign and symptoms: Nausea, Vomiting, Diarrhea Past Medical History PAST MEDICAL HISTORY: Denies Past Medical History (Contd): diverticulosis, 2 episodes of diverticulitis, hypertension, GERD Surgical History: Denies all surgeries Surgical History (Cont'd) Carpal tunnel release Family History Family History: No family hx of DM, No family hx of Heart marcelo, No family hx of HTN Social History Smoker: Quit Less Than 1 Year, Other Alcohol: Occasionally Drugs: Marijuana Lives In: Home Constitutional: denies: chills, diaphoresis, fatigue, fever, malaise, sweats, weakness, others EENTM: denies: blurred vision, double vision, ear bleeding, ear discharge, ear drainage, ear pain, ear ringing, eye pain, eye redness, hearing loss, mouth pain, mouth swelling, nasal discharge, nose bleeding, nose congestion, nose pain, photophobia, tearing, throat pain, throat swelling, voice changes, others Respiratory: reports: cough; denies: hemoptysis, orthopnea, SOB at rest, shortness of breath, SOB with excertion, stridor, wheezing, others Cardiovascular: denies: chest pain, dizzy spells, diaphoresis, Dyspnea on exertion, edema, irregular heart beat, left arm pain, lightheadedness, palpitations, PND, syncope, others Gastrointestinal: reports: abdominal pain, diarrhea, nausea, vomiting; denies: abdomen distended, blood streaked bowels, constipated, dysphagia, difficulty swallowing, hematemesis, melena, poor appetite, poor fluid intake, rectal bleeding, rectal pain, others Genitourinary: denies: burning, dysuria, flank pain, frequency, hematuria, incontinence, penile discharge, penile sore, pain, testicle pain, testicle swelling, urgency, others Neurological: denies: dizziness, fainting, headache, left sided numbness, left sided weakness, numbness, paresthesia, pre-existing deficit, right sided numbness, right sided weakness, seizure, speech problems, tingling, tremors, weakness, others Musculoskeletal: denies: back pain, gout, joint pain, joint swelling, muscle pain, muscle stiffness, neck pain, others Integumetry: denies: bruises, change in color, change in hair/nails, dryness, laceration, lesions, lumps, rash, wounds, others Allergic/Immunocompromised: denies: Difficulty Healing, Frequent Infections, Hives, Itching, others Hematologic/Lymphatic: denies: anemia, blood clots, easy bleeding, easy bruising, swollen glands, others Endocrine: denies: excessive hunger, excessive sweating, excessive thirst, excessive urination, flushing, intolerance to cold, intolerance to heat, unexplained weight gain, unexplained weight loss, others Psychiatric: denies: anxiety, bipolar disorder, depression, hopeless, panic disorder, schizophrenia, sleepless, suicidal, others Physical Exam General Appearance: Moderate Distress HEENT: Normal ENT Inspection, PERRL/EOMI Neck: Non-Tender, Normal, Normal Inspection Respiratory: Chest Non-Tender, Expiration, No Accessory Muscle Use, No Respiratory Distress, Normal Breath Sounds Cardiovascular: No Edema, No Murmur, Regular Rate/Rhythm Breast Exam: Deferred Gastrointestinal: Diffuse, Guarding, LLQ, Tenderness Genitalia: Deferred Pelvic: Deferred Rectal: Rectal Exam not done Extremities: No calf tenderness, Normal inspection, Normal range of motion, Non-tender, No pedal edema Neurologic: Alert, No Motor Deficits, Normal Mood, No Sensory Deficits Cerebellar Function: Normal Reflexes: NOT DONE Skin: Diaphoresis, Dry, Normal Color Peripheral Pulses: 2+ dorsalis pedis (R), 2+ dorsalis pedis (L) Lymphatic: NOT DONE Was a procedure done? Was a procedure done?: No GI differential Dx Differential Diagnosis: Diverticular disease, Gastritis/PUD, Gastroenteritis, Food Poisoning, Hypovolemia X-Ray, Labs, Meds, VS Vital Signs Date Time Temp Pulse Resp B/P (MAP) Pulse Ox O2 Delivery O2 Flow Rate FiO2 12//25 04:02 164/110 (128) 07/21/25 03:53 75 12 98 Room Air* 0 21 07/21/25 03:52 97.9 75 12 177/114 (135) 97.9 07/21/25 01:37 98.0 79 22 175/122 97 98.0 Lab Test 07/21/25 03:34 07/21/25 02:31 Range/Units Urine Color Colorless Yellow Urine Clarity Clear Clear Urine pH 8.0 5.0-9.0 Urine Specific [place] 1.033 1.001-1.035 Urine Protein Negative Negative Urine Ketones Negative Negative Urine Blood Negative Negative /uL Urine Nitrite Negative Negative Urine Bilirubin Negative Negative Urine Urobilinogen Normal Negative mg/dL Urine Leukocyte Esterase Negative Negative /uL Urine RBC 1 0 - 3 /hpf Urine Microscopic WBC < 1 0-3 /HPF Urine Squamous Epithelial Cells None seen <5 /hpf Urine Bacteria None seen None Seen /hpf Urine Glucose Normal Normal mg/dL Urine Opiates Screen Negative NEGATIVE Urine Fentanyl Screen Negative NEGATIVE Urine Barbiturates Screen Negative NEGATIVE Urine Phencyclidine Screen Negative NEGATIVE Urine Amphetamines Screen Negative NEGATIVE Urine Benzodiazepines Screen Negative NEGATIVE Urine Cocaine Screen Negative NEGATIVE Urine Cannabinoids Screen Positive NEGATIVE White Blood Count 12.1 H 4.4-10.8 10^3/uL Red Blood Count 5.15 4.5-5.90 10^6/uL Hemoglobin 15.1 13.5-17.5 g/dL Hematocrit 44.8 41.0-53.0 % Mean Corpuscular Volume 86.9 80.0-100.0 fL Mean Corpuscular Hemoglobin 29.4 28.0-32.0 pg Mean Corpuscular Hemoglobin Concent 33.8 32.0-36.0 g/dL Red Cell Distribution Width 14.1 11.8-14.3 % Platelet Count 191 140-450 10^3/uL Mean Platelet Volume 8.9 6.9-10.8 fL Neutrophils (%) (Auto) 71.9 37.0-80.0 % Lymphocytes (%) (Auto) 21.6 10.0-50.0 % Monocytes (%) (Auto) 5.4 0.0-12.0 % Eosinophils (%) (Auto) 0.8 0.0-7.0 % Basophils (%) (Auto) 0.3 0.0-2.0 % Neutrophils # (Auto) 8.7 H 1.6-8.6 10 ^3/uL Lymphocytes # (Auto) 2.6 0.4-5.4 10 ^3/uL Monocytes # (Auto) 0.7 0-1.3 10 ^3/uL Eosinophils # (Auto) 0.1 0-0.8 10 ^3/uL Basophils # (Auto) 0 0-0.2 10 ^3/uL Nucleated Red Blood Cells 0.0 % Sodium Level 141 136-145 mmol/L Potassium Level 4.4 3.5-5.1 mmol/L Chloride Level 105 98-107 mmol/L Carbon Dioxide Level 26 20-31 mmol/L Anion Gap 10 5-15 Blood Urea Nitrogen 10 9-23 mg/dL Creatinine 1.14 0.700-1.30 mg/dL Glomerular Filtration Rate Calc 83 >90 mL/min BUN/Creatinine Ratio 8.8 L 10.0-20.0 Serum Glucose 126 H 74-106 mg/dL Calcium Level 9.6 8.7-10.4 mg/dL Total Bilirubin 0.4 0.2-1.0 mg/dL Aspartate Amino Transferase (AST) 28 13-40 U/L Alanine Aminotransferase (ALT) 32 7-40 U/L Alkaline Phosphatase 78 46-116 U/L Total Protein 7.7 5.7-8.2 g/dL Albumin 4.8 3.2-4.8 g/dL Lipase 38 12-53 U/L Current Medications Medications (Trade) Dose Ordered Sig/Darshana Route Start Time Stop Time Status Last Admin Sodium Chloride 1,000 ml @ 1,000 mls/hr Q1H ONCE IV 07/21/25 02:30 07/21/25 03:29 DC 07/21/25 04:06 Famotidine (Pepcid Injection) 20 mg ONCE ONCE IV 07/21/25 02:30 07/21/25 02:31 DC 07/21/25 03:03 Ondansetron HCl (Zofran) 4 mg ONCE ONCE IV 07/21/25 02:30 07/21/25 02:31 DC 07/21/25 03:04 Ketorolac Tromethamine (Toradol Injection) 15 mg ONCE ONCE IV 07/21/25 02:30 07/21/25 02:31 DC 07/21/25 03:03 Metoclopramide HCl (Reglan Injection) 10 mg ONCE ONCE IV 07/21/25 03:45 07/21/25 03:46 DC 07/21/25 04:06 Pantoprazole Sodium (Protonix) 40 mg ONCE ONCE IV 07/21/25 03:45 07/21/25 03:46 DC 07/21/25 04:06 Time of 1ST Reevaluation: 03:00 Reevaluation 1ST: Unchanged Time of 2ND Reevaluation: 03:50 Reevaluation 2ND: Unchanged Time of 3RD Reevaluation: 04:30 Reevaluation 3RD: Improved Patient Education/Counseling: Diagnosis, Treatment, Prognosis, Need For Follow Up Family Education/Counseling: No Family Present SEPSIS Sepsis Screen Date sepsis recognized/suspect: Jul 21, 2025 Time Sepsis recognized/suspect: 139 Recent Procedure: No On Antibiotic Therapy: No Respiratory Rate >20: No Heart Rate >90: No Temp<36 C (96.8 F) or >38.3 C: No SBP <90 or MAP <65 mmHG: No New Acute Mental Status Change: No Is the patient on CPAP, BIPAP,: No Physician Orders Ct Ab Pel With Iv Con Only (07/21/25 02:19) Vital Signs Date Time Temp Pulse Resp B/P (MAP) Pulse Ox O2 Delivery O2 Flow Rate FiO2 07/21/25 04:02 164/110 (128) 07/21/25 03:53 75 12 98 Room Air* 0 21 07/21/25 03:52 97.9 75 12 177/114 (135) 97.9 07/21/25 01:37 98.0 79 22 175/122 97 98.0 Laboratory Tests Test 07/21/25 02:31 White Blood Count 12.1 10^3/uL (4.4-10.8) H Medications Medications Dose Ordered Sig/Darshana Route Start Time Stop Time Status Last Admin Dose Admin Famotidine 20 mg ONCE ONCE IV 07/21/25 02:30 07/21/25 02:31 DC 07/21/25 03:03 Ketorolac Tromethamine 15 mg ONCE ONCE IV 07/21/25 02:30 07/21/25 02:31 DC 07/21/25 03:03 Metoclopramide HCl 10 mg ONCE ONCE IV 07/21/25 03:45 07/21/25 03:46 DC 07/21/25 04:06 Ondansetron HCl 4 mg ONCE ONCE IV 07/21/25 02:30 07/21/25 02:31 DC 07/21/25 03:04 Pantoprazole Sodium 40 mg ONCE ONCE IV 07/21/25 03:45 07/21/25 03:46 DC 07/21/25 04:06 Sodium Chloride 1,000 ml @ 1,000 mls/hr Q1H ONCE IV 07/21/25 02:30 07/21/25 03:29 DC 07/21/25 04:06 Departure 1 Departure Time of Disposition: 05:15 (39-year-old male with history of gastritis, recurrent diverticulitis who presented for abdominal pain, intractable nausea, vomiting. Patient is retching upon initial assessment, does have a history of marijuana use, suspect likely a component of marijuana hyperemesis. Given the history of gastritis as well with recurrent episode of vomiting could be consistent with exacerbation of gastritis. Patient reporting discomfort similar to prior diverticulitis. CT of the abdomen and pelvis no with no evidence of acute diverticulitis and no other evidence of acute intra-abdominal process. CBC with no evidence of critical leukocytosis or significant anemia. Metabolic panel with no evidence of acute electrolyte abnormalities. Urinalysis no signs of UTI. Urine drug screen is positive for marijuana which further supports likely cannabinoid hyperemesis. Patient advised on drug use cessation. Was given 1 L normal saline IV fluid bolus, IV Toradol, IV Pepcid, IV Zofran, IV Reglan. Observed for several hours until feeling improved. However able to tolerate oral intake without further exacerbation. Patient will be given a prescription for Pepcid, Zofran.) Impression: Primary Impression: Acute abdominal pain Additional Impression: Nausea & vomiting Disposition: HOME / SELF CARE / HOMELESS Condition: Stable e-Prescriptions Ondansetron Odt 4MG Tab (ZOFRAN PO) 4 Mg Tb 4 MG PO Q6HR for 3 Days, #12 TAB ODT TAB-DISSOLVE IN MOUTH, THEN SWALLOW Prov: SJ WILLIAMSON MD 07/21/25 Famotidine (PEPCID TABLET) 20 Mg Tb 1 TAB PO DAILY for 30 Days, #30 TAB 5 Refills Prov: SJ WILLIAMSON MD 07/21/25 Discharged With: Self Critical Care Note Critical Care Time?: No Stability Stability form required: SHANTHI Garland RESIDENT Jul 21, 2025 02:27 SJ WILLIAMSON MD Jul 21, 2025 05:01
[2025-07-21] MEDS ORDERED: SODIUM CHLORIDE 0.9% 500 ML IV ONE (02:30)
[2025-07-21] MEDS ORDERED: ONDANSETRON HCL 4 MG/2 ML VIAL IM ONE (02:30)
[2025-07-21 02:40] LABS: Hematocrit 44.8 % (41.0-53.0); Hemoglobin 15.1 g/dL (13.5-17.5); Mean Corpuscular Hemoglobin 29.4 pg (28.0-32.0); Mean Corpuscular Volume 86.9 fL (80.0-100.0); Nucleated Red Blood Cells % 0.0 %
[2025-07-21 02:55] LABS: Alanine Aminotransferase 32 U/L (7-40); Albumin 4.8 g/dL (3.2-4.8); Alkaline Phosphatase 78 U/L (46-116); Anion Gap 10 (5-15); BUN/Creatinine Ratio 8.8 (10.0-20.0); Blood Urea Nitrogen 10 mg/dL (9-23); Calcium 9.6 mg/dL (8.7-10.4); Carbon Dioxide 26 mmol/L (20-31); Chloride 105 mmol/L (98-107); Lipase 38 U/L (12-53); Potassium 4.4 mmol/L (3.5-5.1); Sodium 141 mmol/L (136-145); Total Protein 7.7 g/dL (5.7-8.2)
[2025-07-21 02:56] LABS: Bilirubin, Total 0.4 mg/dL (0.2-1.0)
[2025-07-21 02:58] LABS: Glucose 126 mg/dL (74-106)
[2025-07-21] MEDS: KETOROLAC TROMETH 30 MG/ML 1ML VIAL IV ONE (03:03)
[2025-07-21] MEDS: FAMOTIDINE (10MG/ML) 2ML VL IV ONE (03:03)
[2025-07-21] MEDS: ONDANSETRON HCL 4 MG/2 ML VIAL IV ONE (03:04)
--- NOTE | 2025-07-21 03:39 | DVH ---
Exam: CT CT AB PEL WITH IV CON ONLY History: lower abd pain, h/o diverticulitis COMPARISON: CT CT AB PEL WITH IV CON ONLY on DOS: 03/27/25, CT CT ABD PELVIS W CON-ORAL IV on DOS: 01/21/25, CT ABD/PEL W - IV on DOS: 10/25/24, CT ABD/PEL on DOS: 04/07/24, CT ABD/PEL W - IV on DOS: 04/03/24 Technique: Multidetector spiral CT of the abdomen and pelvis was performed from lung bases to pubic symphysis. Intravenous contrast was administered during this examination. Portal venous imaging was obtained. Axial, coronal and sagittal multiplanar reformats were performed by the technologist on a separate workstation. Radiation Dose : 1. Abdomen/Pelvis: CTDIvol 27.62 mGy, DLP 1822.46 mGy*cm. CONTRAST: Type of contrast: Scan 300 Contrast injected: 100 ml Findings: Lung Bases: No acute or significant lung base finding. Normal heart size. No pleural or pericardial effusion. Liver: The liver is normal in size. No focal lesions. Normal hepatic vascular enhancement. Gallbladder and Biliary Tree: Unremarkable Spleen: Unremarkable Pancreas: The pancreas is normal in appearance without focal lesions or abnormal enhancement. Adrenal Glands: Unremarkable Kidneys: No nephrolithiasis or hydronephrosis. Right interpolar renal cortical cyst measures 1.2 cm. Bladder: Unremarkable Bowel: The stomach is grossly normal in appearance. Diverticulosis coli without CT evidence of acute diverticulitis. Small bowel and colon are otherwise normal in caliber and distribution. The appendix is normal. Ascites: Absent Lymphadenopathy: No mesenteric, retroperitoneal or periportal lymphadenopathy. Abdominal Wall and Mesentery: Unremarkable. Vasculature: The visualized abdominal aorta is normal in size and caliber. Abdominal and pelvic vessels demonstrate normal enhancement. Pelvic Organs: Unremarkable Musculoskeletal: No aggressive focal bony lesions, acute fractures or dislocation. IMPRESSION: 1. No acute abdominal or pelvic finding. 2. Diverticulosis coli without CT evidence of acute diverticulitis. Radiation optimization: All CT scans at this facility use at least one of these dose optimization techniques: automated exposure control mA and/or kV adjustment per patient size (includes targeted exams where dose is matched to clinical indication) or iterative reconstruction.
[2025-07-21 03:52] VITALS: TEMP 97.9
[2025-07-21 03:53] VITALS: PULSE 75; RESP 12; O2SAT 98
[2025-07-21] MEDS: IOHEXOL 300 MG/ML 100ML BOTTLE IJ ONE (04:05)
[2025-07-21] MEDS: METOCLOPRAMIDE HCL 5MG/ml INJ 2ml VIAL IV ONE (04:06)
[2025-07-21] MEDS: PANTOPRAZOLE 40 MG/10 ML VIAL INJ IV ONE (04:06)
[2025-07-21] MEDS: SODIUM CHLORIDE 0.9% 1,000 ML IV ONE (04:06)
[2025-07-21 04:45] LABS: Urine Protein, UAD Negative (Negative)
[2025-07-21] MEDS ORDERED: FAMO20TA10 PO (05:01)
[2025-07-21] MEDS ORDERED: ZOFR4T PO (05:01)
[2025-07-21 05:05] LABS: Amphetamine Screen, Urine NEGATIVE (NEGATIVE); Barbiturate Scree,Urine NEGATIVE (NEGATIVE); Benzodiazephine Screen, Urine NEGATIVE (NEGATIVE); Cannabinoid Screen, Urine POSITIVE (NEGATIVE); Cocaine Screen, Urine NEGATIVE (NEGATIVE); Opiate Scree,Urine NEGATIVE (NEGATIVE); Phencyclidine Screen, Urine NEGATIVE (NEGATIVE)
[2025-07-21 05:31] VITALS: BP 160/116; PULSE 75; RESP 18
== END 2025-07-21 05:39 | disposition home or self-care (01) ==
LOC: ER 01:35
DX: R10.32 Left lower quadrant pain (principal); R11.2 Nausea with vomiting, unspecified; F10.90 Alcohol use, unspecified, uncomplicated; F12.90 Cannabis use, unspecified, uncomplicated; I10 Essential (primary) hypertension; Z79.899 Other long term (current) drug therapy; Z91.040 Latex allergy status; Z88.6 Allergy status to analgesic agent; Z88.1 Allergy status to other antibiotic agents
CPT/HCPCS: 36415; 74177; 80053; 80307; 81001; 83690; 85025; 96361; 96374; 96375; 99285; J1885; J2405; J2470; J2765; J3490; J7030; Q9967